=== PATIENT | female | born 1960 | race Caucasian/White ===

== ENCOUNTER → 2020-01-25 | Outpatient (CLI) | payer OTHER ==
--- NOTE | 2020-01-25 10:04 | XR ---
EXAMINATION TYPE: XR chest 2V DATE OF EXAM: 01/25/2020 COMPARISON: 06/13/2011 HISTORY: 59-year-old female with cough, left-sided chest pain TECHNIQUE: Frontal and lateral views FINDINGS: The cardiomediastinal silhouette, aorta, and pulmonary vasculature are within normal limits. Mild den sity at the periphery of the left base. This is the strandy appearance. No other consolidation or ple ural effusion seen. IMPRESSION: Some mild density at the periphery of the left base, suspect atelectasis. Correlate to exclude early infiltrate.
== END | disposition home or self-care (01) ==
LOC: RADXRMAIN 09:09
PROVIDERS: ATTEND Internal Medicine Hematology & Oncology
DX: R91.8 Other nonspecific abnormal finding of lung field (principal); F31.9 Bipolar disorder, unspecified; D47.3 Essential (hemorrhagic) thrombocythemia; F41.9 Anxiety disorder, unspecified; Z71.3 Dietary counseling and surveillance
CPT/HCPCS: 71046

== ENCOUNTER → 2023-01-11 | Outpatient (CLI) | payer BC ==
--- NOTE | 2023-01-14 08:50 | MM ---
Reason for Exam: Screening (asymptomatic). Last mammogram was performed 25 year(s) and 8 month(s) ago. Patient History: Menarche at age 10. First Full-Term at age 22. Left ovary removed at age 39. Right ovary removed at age 39. Hysterectomy at age 39. Postmenopausal. Progesterone for 1 month. Risk Values: Nila 5 year model risk: 1.5%. NCI Lifetime model risk: 6.6%. Prior Study Comparison: 04/30/1997 Bilateral Special View Mammogram, [facility]. 05/14/1997 Left Special View Mammogram, [facility]. Tissue Density: There are scattered fibroglandular densities. Findings: Analyzed By CAD. There is no suspicious group of microcalcifications or new suspicious mass in either breast. Overall Assessment: Benign, BI-RAD 2 Management: Screening Mammogram of both breasts in 1 year. . Patient should continue monthly self-breast exams. A clinical breast exam by your physician is recommended on an annual basis. This exam should not preclude additional follow-up of suspicious palpable abnormalities. Note on Nila scores and lifetime risk: 1. A Nila score greater than 3% is considered moderate risk. If this is the case, consider specialist referral to assess eligibility for a risk reducing agent. 2. If overall lifetime risk for the development of breast cancer is 20% or higher, the patient may qualify for future screening with alternating mammogram and breast MRI. Electronically signed and approved by: Randy Cano M.D. Radiologis
== END | disposition home or self-care (01) ==
LOC: RADMAMWWP 12:03
PROVIDERS: ATTEND Family Medicine
DX: Z12.31 Encounter for screening mammogram for malignant neoplasm of breast (principal); Z78.0 Asymptomatic menopausal state
CPT/HCPCS: 77063; 77067

== ENCOUNTER 2023-11-04 19:02 | Inpatient (IN) | payer BC ==
[2023-11-04] MEDS ORDERED: VANCOMYCIN IV PER PHARMACY 1 EACH MISC MISCELLANE PRN (19:48)
--- NOTE | 2023-11-04 19:50 | ED ---
General Adult HPI - General Stated complaint: Sepsis Time Seen by Provider: 11/04/23 19:09 - History of Present Illness Initial comments: Patient is a 63-year-old female who presented to [facility] today for nausea and not feeling well and hyperglycemia. Endorse generalized weakness and getting progressively worsening nausea and had 1 episode of emesis yesterday and one episode today. Endorse subjective fevers and 2 days ago had a low-grade fever of "100.2 F". Endorses cough. Denies chills, chest pain, shortness of breath. Endorsed mild epigastric abdominal pain. No dysuria or hematuria. No focal numbness or weakness. - Related Data Home Medications Medication Instructions Recorded Confirmed Escitalopram [Lexapro] 20 mg PO DAILY 07/20/14 11/04/23 Esomeprazole Magnesium [NexIUM] 20 mg PO DAILY 07/20/14 11/04/23 QUEtiapine FUMARATE 100 mg PO HS 07/20/14 11/04/23 clonazePAM [KlonoPIN] 0.5 mg PO BID 07/20/14 11/04/23 Atorvastatin [Lipitor] 40 mg PO HS 11/04/23 11/04/23 Cetirizine HCl [Zyrtec] 10 mg PO DAILY 11/04/23 11/04/23 Empagliflozin [Jardiance] 25 mg PO DAILY 11/04/23 11/04/23 Fluticasone Nasal [place] [Flonase 1 spray EA NOSTRIL DAILY PRN 11/04/23 11/04/23 Nasal [place]] glipiZIDE [Glucotrol] 10 mg PO BID 11/04/23 11/04/23 lisinopriL [Zestril] 2.5 mg PO DAILY 11/04/23 11/04/23 metFORMIN HCL [Glucophage] 1,000 mg PO BID 11/04/23 11/04/23 Allergies Allergy/AdvReac Type Severity Reaction Status Date / Time prochlorperazine edisylate AdvReac Anaphylaxis Verified 11/04/23 19:49 [From Compazine] prochlorperazine maleate AdvReac Anaphylaxis Verified 11/04/23 19:49 [From Compazine] Review of Systems ROS Statement: Those systems with pertinent positive or pertinent negative responses have been documented in the HPI. ROS Other: All systems not noted in ROS Statement are negative. Constitutional: Reports: fever. Denies: chills Respiratory: Reports: cough. Denies: dyspnea Cardiovascular: Denies: chest pain Gastrointestinal: Reports: abdominal pain, nausea, vomiting Genitourinary: Denies: dysuria, hematuria Skin: Reports: change in color (Erythema around right foot) Neurological: Denies: numbness Past Medical History Past Medical History: Diabetes Mellitus, GERD/Reflux, Hypertension Additional Past Medical History / Comment(s): Anemia, bleeding ulcer History of Any Multi-Drug Resistant Organisms: None Reported Past Surgical History: Appendectomy, Section, Cholecystectomy, Hysterectomy Past Psychological History: Anxiety, Depression Past Alcohol Use History: None Reported Past Drug Use History: None Reported General Exam - General Exam Comments Initial Comments: PE: CONSTITUTIONAL: No apparent distress, well appearing SKIN: warm, dry, no jaundice, hives or petechiae, circumferential erythema around right foot extending up to ankle, small sore at plantar aspect right foot EYES: Pupils are equally round, extraocular movements intact without nystagmus, clear conjunctiva, non-icteric sclera HENT: Normocephalic, atraumatic, moist mucus membranes, oropharynx clear without exudates NECK: , Full range of motion, normal appearance PULMONARY: Clear to auscultation without wheezes, rhonchi, or rales, normal excursion, no accessory muscle use and no stridor CARDIOVASCULAR: Regular rate, rhythm, normal S1 and S2. No appreciated murmurs, rubs or gallops. Strong radial pulses with intact distal perfusion. No lower extremity edema GASTROINTESTINAL: Soft, non-tender, non-distended, no palpable masses, no rebound or guarding. No hepatosplenomegaly MUSCULOSKELETAL: Right foot is mildly swollen, erythema as noted above, s/p transmetatarsal amputee, no crepitus, other extremities have no gross deformity, n No calf swelling ot TTP. NEUROLOGIC:_a/o x 3, GCS 15, normal mentation and speech. Moves all extremities x 4 without motor or sensory deficit PSYCHIATRIC:_normal mood and affect, thought process is clear and linear Course Vital Signs 11/04/23 11/04/23 11/04/23 19:15 19:48 20:48 Temperature 98.1 F Pulse Rate 95 91 92 Respiratory 20 18 18 Rate Blood Pressure 96/46 92/48 105/46 O2 Sat by Pulse 96 96 98 Oximetry Medical Decision Making - Medical Decision Making Was pt. sent in by a medical professional or institution (, PA, DIRECTOR OF PLANNING, urgent care, hospital, or fdc...) When possible be specific @ -No Did you speak to anyone other than the patient for history (EMS, parent, family, police, friend...)? What history was obtained from this source @ -No Did you review nursing and triage notes (agree or disagree)? Why? @ -I reviewed and agree with nursing and triage notes Were old charts reviewed (outside hosp., previous admission, EMS record, old EKG, old radiological studies, urgent care reports/EKG's, fdc records)? Report findings @Reviewed paperwork from transferring hospital, patient presented tachycardic with borderline blood pressures, received 2 and half liters IV fluids, blood cultures were drawn patient had a leukocytosis with white blood cell count 19.74, hemoglobin of 9.5 hyperglycemia with blood glucose 345 bicarb 22 mild [place] with creatinine 1.98, sodium 132, lipase 38 CT abdomen pelvis showed no acute intra-abdominal process, of note on review of MDM from discharge during hospital, initial evaluating physician did not notice any erythema or warmth, induration or fluctuance of the right foot on their exam there is not suspicion for infection but x-ray did show small amount of soft tissue air at the plantar aspect of the foot, patient was started on broad-spectrum antibiotics including vancomycin and cefepime and transfer was arranged for admission for sepsis Differential Diagnosis (chest pain, altered mental status, abdominal pain women, abdominal pain men, vaginal bleeding, weakness, fever, dyspnea, syncope, headache, dizziness, GI bleed, back pain, seizure, CVA, palpatations, mental he alth, musculoskeletal)? @ -Differential diagnosis remains broad however top considerations include sepsis secondary to cellulitis, abscess, osteomyelitis. This is not all inclusive list. EKG interpreted by me (3pts min.). @ -As above X-rays interpreted by me (1pt min.). @ -None done CT interpreted by me (1pt min.). @ -Small amount of air in region of right foot with soft tissue streaking U/S interpreted by me (1pt. min.). @ -None done What testing was considered but not performed or refused? (CT, X-rays, U/S, labs)? Why? 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 Why? @ -None Did you discuss the management of the patient with other professionals (professionals i.e. , KERWIN, DIRECTOR OF PLANNING, lab, RT, psych nurse, social services, bottle selector, teacher, electoral officer, business case analyst)? Give summary @ -No Was smoking cessation discussed for >3mins.? @ -No Was critical care preformed (if so, how long)? @ -No Were there social determinants of health that impacted care today? How? (Homelessness, low income, unemployed, alcoholism, drug addiction, transportation, low edu. Level, literacy, decrease access to med. care, senior care, rehab)? @ -No Was there de-escalation of care discussed even if they declined (Discuss DNR or withdrawal of care, Hospice)? @ -No What co-morbidities impacted this encounter? (DM, HTN, Smoking, COPD, CAD, Cancer, CVA, ARF, Chemo, Hep., AIDS, mental health diagnosis, sleep apnea, morbid obesity)? @ DM Was patient admitted / discharged? Hospital course, mention meds given and route, prescriptions, significant lab abnormalities, going to OR and other pertinent info. @ -Hospital course admission- Patient is a 63 y/o female transferred from [facility] for sepsis, suspect 2/2 cellulitis in right foot. 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 Pt well appearing on assessment, MAP 68, HR 80- 90s. Exam significant for right foot erythema, swelling, minimal TTP, small sore to the bottom aspect right foot, no crepitus or bullae. CT ordered to further evaluate. Zosyn, additional 500 CC IV fluids and maintenance fluids ordered, CBC, CMP, CRP, ESR, pain control. Anticipate admission, patient agreeable with plan. White blood cell count 15.8, down from earlier, Cr 1.49, earlier was 1.68. CRP 36. Discussed with KERWIN Cohen, [facility], who kindly accepts for admission. CT Showed possible abscess with finding cellulitis. Recommends follow up MRI. I did consider abscess drainage however given the location of patient's abscess, will hold off on drainage and treat with abx at this point. Undiagnosed new problem with uncertain prognosis? @ -No Drug Therapy requiring intensive monitoring for toxicity (Heparin, Nitro, Insulin, Cardizem)? @ -No Were any procedures done? @ -No Diagnosis/symptom? @ -Sepsis secondary to cellulitis Acute, or Chronic, or Acute on Chronic? @ -Acute Uncomplicated (without systemic symptoms) or Complicated (systemic symptoms)? @ Complicated Side effects of treatment? @ -No Exacerbation, Progression, or Severe Exacerbation? @ -No Poses a threat to life or bodily function? How? (Chest pain, [place], [place], pneumonia, PE, COPD, DKA, ARF, appy, cholecystitis, CVA, Diverticulitis, Homicidal, Suicidal, threat to staff... and all critical care pts) @ -Yes, potentially, if infection allowed to spread or continue untreated could result in loss of limb or septic shock - Lab Data Result diagrams: 11/04/23 19:43 11/04/23 19:43 Lab Results 11/04/23 11/04/23 Range/Units 19:43 19:43 WBC 15.8 H (3.8-10.6) k/uL RBC 3.44 L (3.80-5.40) m/uL Hgb 9.8 L (11.4-16.0) gm/dL Hct 29.9 L (34.0-46.0) % MCV 86.8 (80.0-100.0) fL MCH 28.3 (25.0-35.0) pg MCHC 32.6 (31.0-37.0) g/dL RDW 15.1 (11.5-15.5) % Plt Count 245 (150-450) k/uL MPV 8.2 Neutrophils % 83 % Lymphocytes % 11 % Monocytes % 3 % Eosinophils % 1 % Basophils % 0 % Neutrophils # 13.2 H (1.3-7.7) k/uL Lymphocytes # 1.7 (1.0-4.8) k/uL Monocytes # 0.5 (0-1.0) k/uL Eosinophils # 0.2 (0-0.7) k/uL Basophils # 0.0 (0-0.2) k/uL Sodium 135 L (137-145) mmol/L Potassium 4.4 (3.5-5.1) mmol/L Chloride 107 (98-107) mmol/L Carbon Dioxide 19 L (22-30) mmol/L Anion Gap 9 mmol/L BUN 42 H (7-17) mg/dL Creatinine 1.49 H (0.52-1.04) mg/dL Est GFR (CKD-EPI)AfAm 43 (>60 ml/min/1.73 sqM) Est GFR (CKD-EPI)NonAf 37 (>60 ml/min/1.73 sqM) Glucose 158 H (74-99) mg/dL Calcium 8.3 L (8.4-10.2) mg/dL Total Bilirubin 1.5 H (0.2-1.3) mg/dL AST 14 (14-36) U/L ALT 18 (4-34) U/L Alkaline Phosphatase 90 (38-126) U/L C-Reactive Protein 36.4 H (<1.0) mg/dL Total Protein 5.7 L (6.3-8.2) g/dL Albumin 2.9 L (3.5-5.0) g/dL Disposition Clinical Impression: Cellulitis, Abscess, Sepsis Disposition: ADMITTED IP TO THIS [facility] Condition: Good
[2023-11-04 20:29] LABS: ALT 18 U/L (4-34); AST 14 U/L (14-36); African American GFR (CKD) 43 (>60 ml/min/1.73 sqM); Albumin 2.9 g/dL (3.5-5.0); Alkaline Phosphatase 90 U/L (38-126); Anion Gap 9 mmol/L; Blood Urea Nitrogen 42 mg/dL (7-17); Calcium 8.3 mg/dL (8.4-10.2); Carbon Dioxide 19 mmol/L (22-30); Chloride 107 mmol/L (98-107); Glucose 158 mg/dL (74-99); Non-African American GFR(CKD) 37 (>60 ml/min/1.73 sqM); Potassium 4.4 mmol/L (3.5-5.1); Sodium 135 mmol/L (137-145); Total Bilirubin 1.5 mg/dL (0.2-1.3); Total Protein 5.7 g/dL (6.3-8.2)
[2023-11-04] MEDS: SODIUM CHLORIDE 0.9% 1,000 ML IV SCH (20:32)
[2023-11-04 20:39] LABS: Basophils % (A) 0 %; Eosinophils # (A) 0.2 k/uL (0-0.7); Eosinophils % (A) 1 %; HCT 29.9 % (34.0-46.0); HGB 9.8 gm/dL (11.4-16.0); Lymphocytes # (A) 1.7 k/uL (1.0-4.8); Lymphocytes % (A) 11 %; MCH 28.3 pg (25.0-35.0); MCHC 32.6 g/dL (31.0-37.0); MCV 86.8 fL (80.0-100.0); Mean Platelet Volume 8.2; Monocytes # (A) 0.5 k/uL (0-1.0); Monocytes % (A) 3 %; Neutrophils # (A) 13.2 k/uL (1.3-7.7); Neutrophils % (A) 83 %; Platelet Count 245 k/uL (150-450); RBC 3.44 m/uL (3.80-5.40); RDW 15.1 % (11.5-15.5); WBC 15.8 k/uL (3.8-10.6)
[2023-11-04] MEDS ORDERED: NALOXONE 0.4 MG/ML 1 ML VIAL IV PRN (20:42)
[2023-11-04] MEDS ORDERED: MAG HYDROX/AL HYDROX/SIMETH 30 ML CUP PO PRN (20:42)
[2023-11-04] MEDS ORDERED: CALCIUM CARBONATE 500 MG CHEWABLE PO PRN (20:42)
[2023-11-04 21:07] LABS: C Reactive Protein 36.4 mg/dL (<1.0)
[2023-11-04] MEDS: SODIUM CHLORIDE 0.9% 500 ML 500 ML IV ONE (21:14)
--- NOTE | 2023-11-04 21:14 | CT ---
EXAMINATION TYPE: CT lower extremity RT wo con CT DLP: 209.7 mGycm, Automated exposure control for dose reduction was used. DATE OF EXAM: 11/04/2023 8:46 PM COMPARISON: Extremity radiograph same day. CLINICAL INDICATION: Female, 63 years old with history of Cellulitis air on XR; PHH, cellulitis TECHNIQUE: Axial images were obtained of the CT lower extremity RT wo con, Additional coronal and sag ittal reformatted images and soft tissue and bone window were obtained for review. Contrast used: mL of , (None if empty) Oral contrast used: (None if empty) FINDINGS: Subcutaneous gas is seen around the ankle medially with organizing fluid collection and gas present. The streaky edema along the foot present. No evidence of fracture. No osseous erosion defin itively visualized. No radiopaque foreign bodies visualized. Multilevel degeneration changes througho ut the foot. IMPRESSION: Streaky edema of the right lower extremity with organizing fluid collection along the medial foot sun rounding multiple osseous structures. This is partially out of the [id number]. Lies in the field-o f-view is compatible with abscess with cellulitis change. No discrete osseous erosion visualized at t his time. Further workup with MRI recommended.
[2023-11-04] MEDS: PIPERACILLIN-TAZOBACTAM 4.5 GM in SODIUM CHLORIDE 0.9% 100 ML IVPB STA (21:15)
[2023-11-04] MEDS: traMADol 50 MG TAB PO PRN (21:29)
[2023-11-04] MEDS: FAMOTIDINE 20 MG TAB PO SCH (21:30)
[2023-11-04] MEDS: VANCOMYCIN 1,250 MG in SODIUM CHLORIDE 0.9% 250 ML IVPB ONE (21:42)
[2023-11-05 07:34] LABS: African American GFR (CKD) 51 (>60 ml/min/1.73 sqM); Non-African American GFR(CKD) 44 (>60 ml/min/1.73 sqM)
--- NOTE | 2023-11-05 10:34 | P.HPIM ---
History of Present Illness Patient is a 63-year-old female was seen at [facility] because of generalized weakness fever, not feeling well and found to have leukocytosis found to have infection of the left foot circumferential plantar wound. Patient's wound has a purulent base. Patient also hyperglycemic. 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 Patient also complaining of mild epigastric abdominal discomfort. REVIEW OF SYSTEMS: All other systems are negative except those mentioned in the HPI PHYSICAL EXAMINATION: GENERAL: The patient is alert and oriented x3, not in any acute distress. Well developed, well nourished. HEENT: Pupils are round and equally reacting to light. EOMI. No scleral icterus. No conjunctival pallor. Normocephalic, atraumatic. No pharyngeal erythema. No thyromegaly. CARDIOVASCULAR: S1 and S2 present. No murmurs, rubs, or gallops. PULMONARY: Chest is clear to auscultation, no wheezing or crackles. ABDOMEN: Soft, nontender, nondistended, normoactive bowel sounds. No palpable organomegaly. MUSCULOSKELETAL: No joint swelling or deformity. EXTREMITIES: No cyanosis, clubbing, or pedal edema. NEUROLOGICAL: Gross neurological examination did not reveal any focal deficits. SKIN: Right plantar wound as mentioned above Assessment and plan -Sepsis secondary to right foot infection with cellulitis extending up to the mid brower area, patient is on Zosyn and vancomycin. Infectious disease will consult along with wound care and vascular surgery patient may need debridement wound cultures will be obtained -Acute renal failure baseline creatinine within normal notes patient has a creatinine of 1.4 continue with IV fluids hold off on metformin -Mild hypovolemic hyponatremia IV fluids as mentioned above -Type 2 diabetes mellitus uncontrolled elevated blood sugars patient will be resumed on home regimen except for metformin and sliding scale insulin titrate depending on the requirements of insulin -Diabetic peripheral neuropathy -Hyperlipidemia -Gastroesophageal reflux disease -Hypertension For above-mentioned chronic medical problems patient resumed on appropriate home medications DVT prophylaxis: Subcutaneous heparin text Past Medical History Past Medical History: Diabetes Mellitus, GERD/Reflux, Hypertension Additional Past Medical History / Comment(s): Anemia, bleeding ulcer History of Any Multi-Drug Resistant Organisms: None Reported Past Surgical History: Appendectomy, Section, Cholecystectomy, Hysterectomy Additional Past Surgical History / Comment(s): right foot- greater toe amputation- 01/2023 Past Psychological History: Anxiety, Depression Past Alcohol Use History: None Reported Past Drug Use History: None Reported Medications and Allergies Home Medications Medication Instructions Recorded Confirmed Type Escitalopram [Lexapro] 20 mg PO DAILY 07/20/14 11/04/23 History Esomeprazole Magnesium [NexIUM] 20 mg PO DAILY 07/20/14 11/04/23 History QUEtiapine FUMARATE 100 mg PO HS 07/20/14 11/04/23 History clonazePAM [KlonoPIN] 0.5 mg PO BID 07/20/14 11/04/23 History Atorvastatin [Lipitor] 40 mg PO HS 11/04/23 11/04/23 History Cetirizine HCl [Zyrtec] 10 mg PO DAILY 11/04/23 11/04/23 History Empagliflozin [Jardiance] 25 mg PO DAILY 11/04/23 11/04/23 History Fluticasone Nasal [place] [Flonase 1 spray EA NOSTRIL DAILY PRN 11/04/23 11/04/23 History Nasal [place]] glipiZIDE [Glucotrol] 10 mg PO BID 11/04/23 11/04/23 History lisinopriL [Zestril] 2.5 mg PO DAILY 11/04/23 11/04/23 History metFORMIN HCL [Glucophage] 1,000 mg PO BID 11/04/23 11/04/23 History Allergies Allergy/AdvReac Type Severity Reaction Status Date / Time prochlorperazine edisylate AdvReac Anaphylaxis Verified 11/04/23 19:49 [From Compazine] prochlorperazine maleate AdvReac Anaphylaxis Verified 11/04/23 19:49 [From Compazine] Physical Exam Vitals: Vital Signs Temp Pulse Pulse Resp BP BP Pulse Ox 11/05/23 08:39 93 L 11/05/23 08:25 98.6 F 93 18 108/70 95 11/05/23 03:49 81 16 100/49 95 11/05/23 00:00 98.2 F 84 16 94/50 95 11/04/23 20:48 92 18 105/46 98 11/04/23 19:48 91 18 92/48 96 11/04/23 19:15 98.1 F 95 20 96/46 96 Intake and Output 11/04/23 11/05/23 11/05/23 22:59 06:59 14:59 Output Total 700 Balance -700 Output: Urine 700 Other: Voiding Method External Catheter Weight 66.224 kg Results CBC & Chem 7: 11/04/23 19:43 11/05/23 05:36 Labs: Abnormal Lab Results - Last 24 Hours (Table) 11/04/23 11/04/23 11/05/23 Range/Units 19:43 19:43 05:36 WBC 15.8 H (3.8-10.6) k/uL RBC 3.44 L (3.80-5.40) m/uL Hgb 9.8 L (11.4-16.0) gm/dL Hct 29.9 L (34.0-46.0) % Neutrophils # 13.2 H (1.3-7.7) k/uL ESR (0-30) mm/Hr Sodium 135 L (137-145) mmol/L Carbon Dioxide 19 L (22-30) mmol/L BUN 42 H (7-17) mg/dL Creatinine 1.49 H 1.29 H (0.52-1.04) mg/dL Glucose 158 H (74-99) mg/dL Calcium 8.3 L (8.4-10.2) mg/dL Total Bilirubin 1.5 H (0.2-1.3) mg/dL C-Reactive Protein 36.4 H (<1.0) mg/dL Total Protein 5.7 L (6.3-8.2) g/dL Albumin 2.9 L (3.5-5.0) g/dL 11/05/23 Range/Units 05:36 WBC (3.8-10.6) k/uL RBC (3.80-5.40) m/uL Hgb (11.4-16.0) gm/dL Hct (34.0-46.0) % Neutrophils # (1.3-7.7) k/uL ESR 60 H (0-30) mm/Hr Sodium (137-145) mmol/L Carbon Dioxide (22-30) mmol/L BUN (7-17) mg/dL Creatinine (0.52-1.04) mg/dL Glucose (74-99) mg/dL Calcium (8.4-10.2) mg/dL Total Bilirubin (0.2-1.3) mg/dL C-Reactive Protein (<1.0) mg/dL Total Protein (6.3-8.2) g/dL Albumin (3.5-5.0) g/dL
[2023-11-05] MEDS: SODIUM CHLORIDE 0.9% 1,000 ML IV SCH (10:44)
[2023-11-05 12:25] LABS: Glucose,Whole Blood 205 mg/dL (70-110)
--- NOTE | 2023-11-05 12:36 | P.CONS ---
History of Present Illness - Reason for Consult Consult date: 11/05/23 wound care - History of Present Illness This is a 63-year-old patient being seen in the ER for nonhealing ulceration to the right plantar foot. Patient had edema erythema and purulent drainage noted to the site. Patient is status post right great toe amputation from 2022. Patient stated that her foot became painful and red over the last few weeks. Patient has history of diabetes GERD and hypertension. Ulceration measures approximately 1 x 1 x 3 cm with slough and nonviable tissue present serosanguineous drainage present at this time. Undermining is noted. Review Of Systems: Constitutional: No fever, no chills, no night sweats. No weight change. No weakness, fatigue or lethargy. No daytime sleepiness. Integumentary:reports wounds, no lesions. No rash or pruritus. No unusual bruising. No change in hair or nails. Physical exam: General Appearance: Alert, cooperative, no distress, appears stated age. Skin: See HPI all other Skin color, texture, tugor normal, no rashes or lesions. Neurologic: Alert oriented x3 Assessment: 1. Nonhealing ulceration with muscle involvement without necrosis - L97.515 2.. Diabetic foot ulcer - E11.621 Plan: 1. Apply absorptive silver rope dry gauze rolled gauze and secure with tape. Change Saturday. Patient would benefit from advanced wound care and wound care setting. We be happy to see her in the wound care center upon discharge. Thank you for the consultation any questions please contact the wound care center DNP note has been reviewed and discussed with Dr. Villegas and the impression and plan of care has been directed as dictated. Past Medical History Past Medical History: Diabetes Mellitus, GERD/Reflux, Hypertension Additional Past Medical History / Comment(s): Anemia, bleeding ulcer History of Any Multi-Drug Resistant Organisms: None Reported Past Surgical History: Appendectomy, Section, Cholecystectomy, Hysterectomy Additional Past Surgical History / Comment(s): right foot- greater toe amputation- 01/2023 Past Psychological History: Anxiety, Depression Past Alcohol Use History: None Reported Past Drug Use History: None Reported Medications and Allergies Home Medications Medication Instructions Recorded Confirmed Type Escitalopram [Lexapro] 20 mg PO DAILY 07/20/14 11/04/23 History Esomeprazole Magnesium [NexIUM] 20 mg PO DAILY 07/20/14 11/04/23 History QUEtiapine FUMARATE 100 mg PO HS 07/20/14 11/04/23 History clonazePAM [KlonoPIN] 0.5 mg PO BID 07/20/14 11/04/23 History Atorvastatin [Lipitor] 40 mg PO HS 11/04/23 11/04/23 History Cetirizine HCl [Zyrtec] 10 mg PO DAILY 11/04/23 11/04/23 History Empagliflozin [Jardiance] 25 mg PO DAILY 11/04/23 11/04/23 History Fluticasone Nasal [place] [Flonase 1 spray EA NOSTRIL DAILY PRN 11/04/23 11/04/23 History Nasal [place]] glipiZIDE [Glucotrol] 10 mg PO BID 11/04/23 11/04/23 History lisinopriL [Zestril] 2.5 mg PO DAILY 11/04/23 11/04/23 History metFORMIN HCL [Glucophage] 1,000 mg PO BID 11/04/23 11/04/23 History Allergies Allergy/AdvReac Type Severity Reaction Status Date / Time prochlorperazine edisylate AdvReac Anaphylaxis Verified 11/04/23 19:49 [From Compazine] prochlorperazine maleate AdvReac Anaphylaxis Verified 11/04/23 19:49 [From Compazine] Physical Exam Vitals: Vital Signs Temp Pulse Pulse Resp BP BP Pulse Ox 11/05/23 11:06 98.5 F 78 20 102/64 95 11/05/23 08:39 93 L 11/05/23 08:25 98.6 F 93 18 108/70 95 11/05/23 03:49 81 16 100/49 95 11/05/23 00:00 98.2 F 84 16 94/50 95 11/04/23 20:48 92 18 105/46 98 11/04/23 19:48 91 18 92/48 96 11/04/23 19:15 98.1 F 95 20 96/46 96 Intake and Output 11/04/23 11/05/23 11/05/23 22:59 06:59 14:59 Output Total 700 Balance -700 Output: Urine 700 Other: Voiding Method External Catheter Weight 66.224 kg Results CBC & Chem 7: 11/04/23 19:43 11/05/23 05:36 Labs: Abnormal Lab Results - Last 24 Hours (Table) 11/04/23 11/04/23 11/05/23 Range/Units 19:43 19:43 05:36 WBC 15.8 H (3.8-10.6) k/uL RBC 3.44 L (3.80-5.40) m/uL Hgb 9.8 L (11.4-16.0) gm/dL Hct 29.9 L (34.0-46.0) % Neutrophils # 13.2 H (1.3-7.7) k/uL ESR (0-30) mm/Hr Sodium 135 L (137-145) mmol/L Carbon Dioxide 19 L (22-30) mmol/L BUN 42 H (7-17) mg/dL Creatinine 1.49 H 1.29 H (0.52-1.04) mg/dL Glucose 158 H (74-99) mg/dL POC Glucose (mg/dL) (70-110) mg/dL Calcium 8.3 L (8.4-10.2) mg/dL Total Bilirubin 1.5 H (0.2-1.3) mg/dL C-Reactive Protein 36.4 H (<1.0) mg/dL Total Protein 5.7 L (6.3-8.2) g/dL Albumin 2.9 L (3.5-5.0) g/dL 11/05/23 11/05/23 Range/Units 05:36 12:24 WBC (3.8-10.6) k/uL RBC (3.80-5.40) m/uL Hgb (11.4-16.0) gm/dL Hct (34.0-46.0) % Neutrophils # (1.3-7.7) k/uL ESR 60 H (0-30) mm/Hr Sodium (137-145) mmol/L Carbon Dioxide (22-30) mmol/L BUN (7-17) mg/dL Creatinine (0.52-1.04) mg/dL Glucose (74-99) mg/dL POC Glucose (mg/dL) 205 H (70-110) mg/dL Calcium (8.4-10.2) mg/dL Total Bilirubin (0.2-1.3) mg/dL C-Reactive Protein (<1.0) mg/dL Total Protein (6.3-8.2) g/dL Albumin (3.5-5.0) g/dL
--- NOTE | 2023-11-05 12:43 | P.GSCN ---
History of Present Illness Consult date: 11/05/23 Reason for Consult: Foot wound Requesting physician: Juana Gilliland History of present illness: This is a pleasant 63-year-old female with a history of diabetes mellitus, peripheral neuropathy, chronic right foot wound, previous right foot wound infection requiring right great toe amputation and hypertension who presented to the emergency department as a transfer from [facility] for concerns of infected right foot wound. Patient states she has had the wound on the bottom of her foot since January. She follows with [facility] and sees a contract engineer for wound care. States she started not feeling well a couple days ago with fever, body aches and nausea. Also started to notice her leg getting red. She went to the emergency department for further evaluation. She also has Charcot foot. Vascular surgery was consulted for right foot wound. She states she does not have much feeling in that right foot. She currently denies any shortness of breath or chest pain no fevers or bodyaches. Denies any abdominal pain, nausea or vomiting. Review of Systems A 14 point review systems was completed all pertinent positives and negatives as stated in the HPI. Past Medical History Past Medical History: Diabetes Mellitus, GERD/Reflux, Hypertension Additional Past Medical History / Comment(s): Anemia, bleeding ulcer History of Any Multi-Drug Resistant Organisms: None Reported Past Surgical History: Appendectomy, Section, Cholecystectomy, Hysterectomy Additional Past Surgical History / Comment(s): right foot- greater toe amputation- 01/2023 Past Psychological History: Anxiety, Depression Past Alcohol Use History: None Reported Past Drug Use History: None Reported Medications and Allergies Home Medications Medication Instructions Recorded Confirmed Type Escitalopram [Lexapro] 20 mg PO DAILY 07/20/14 11/04/23 History Esomeprazole Magnesium [NexIUM] 20 mg PO DAILY 07/20/14 11/04/23 History QUEtiapine FUMARATE 100 mg PO HS 07/20/14 11/04/23 History clonazePAM [KlonoPIN] 0.5 mg PO BID 07/20/14 11/04/23 History Atorvastatin [Lipitor] 40 mg PO HS 11/04/23 11/04/23 History Cetirizine HCl [Zyrtec] 10 mg PO DAILY 11/04/23 11/04/23 History Empagliflozin [Jardiance] 25 mg PO DAILY 11/04/23 11/04/23 History Fluticasone Nasal [place] [Flonase 1 spray EA NOSTRIL DAILY PRN 11/04/23 11/04/23 History Nasal [place]] glipiZIDE [Glucotrol] 10 mg PO BID 11/04/23 11/04/23 History lisinopriL [Zestril] 2.5 mg PO DAILY 11/04/23 11/04/23 History metFORMIN HCL [Glucophage] 1,000 mg PO BID 11/04/23 11/04/23 History Allergies Allergy/AdvReac Type Severity Reaction Status Date / Time prochlorperazine edisylate AdvReac Anaphylaxis Verified 11/04/23 19:49 [From Compazine] prochlorperazine maleate AdvReac Anaphylaxis Verified 11/04/23 19:49 [From Compazine] Surgical - Exam Vital Signs Temp Pulse Resp BP Pulse Ox 98.1 F 95 20 96/46 96 11/04/23 19:15 11/04/23 19:15 11/04/23 19:15 11/04/23 19:15 11/04/23 19:15 General appearance: The patient is alert, oriented, appears in no acute distress. HET: Head is normocephalic and atraumatic. Pupils are equal and reactive. Neck: Supple. Heart: Regular. Lungs: Equal expansion, normal respiratory effort. Abdomen: Soft, nontender, nondistended. Extremities: Palpable DP pulse. Right foot with previous great toe amputation well-healed. Plantar aspect of midfoot with diabetic ulcer with fluctuance. Wound was probed with cotton tip applicator and expressed with serosanguineous drainage but no pus noted. Deep tissue culture obtained. The swelling to the left side of the foot. There is erythema along the dorsal aspect of foot and of the brower which is marked. Palpable DP pulses. Neurological: No focal deficits. Peripheral neuropathy With decreased sensation in feet. Results - Labs 11/04/23 19:43 11/05/23 05:36 Abnormal Lab Results - Last 24 Hours (Table) 11/04/23 11/04/23 11/05/23 Range/Units 19:43 19:43 05:36 WBC 15.8 H (3.8-10.6) k/uL RBC 3.44 L (3.80-5.40) m/uL Hgb 9.8 L (11.4-16.0) gm/dL Hct 29.9 L (34.0-46.0) % Neutrophils # 13.2 H (1.3-7.7) k/uL ESR (0-30) mm/Hr Sodium 135 L (137-145) mmol/L Carbon Dioxide 19 L (22-30) mmol/L BUN 42 H (7-17) mg/dL Creatinine 1.49 H 1.29 H (0.52-1.04) mg/dL Glucose 158 H (74-99) mg/dL POC Glucose (mg/dL) (70-110) mg/dL Calcium 8.3 L (8.4-10.2) mg/dL Total Bilirubin 1.5 H (0.2-1.3) mg/dL C-Reactive Protein 36.4 H (<1.0) mg/dL Total Protein 5.7 L (6.3-8.2) g/dL Albumin 2.9 L (3.5-5.0) g/dL 11/05/23 11/05/23 Range/Units 05:36 12:24 WBC (3.8-10.6) k/uL RBC (3.80-5.40) m/uL Hgb (11.4-16.0) gm/dL Hct (34.0-46.0) % Neutrophils # (1.3-7.7) k/uL ESR 60 H (0-30) mm/Hr Sodium (137-145) mmol/L Carbon Dioxide (22-30) mmol/L BUN (7-17) mg/dL Creatinine (0.52-1.04) mg/dL Glucose (74-99) mg/dL POC Glucose (mg/dL) 205 H (70-110) mg/dL Calcium (8.4-10.2) mg/dL Total Bilirubin (0.2-1.3) mg/dL C-Reactive Protein (<1.0) mg/dL Total Protein (6.3-8.2) g/dL Albumin (3.5-5.0) g/dL Diabetes panel 11/04/23 11/05/23 Range/Units 19:43 05:36 Sodium 135 L (137-145) mmol/L Potassium 4.4 (3.5-5.1) mmol/L Chloride 107 (98-107) mmol/L Carbon Dioxide 19 L (22-30) mmol/L BUN 42 H (7-17) mg/dL Creatinine 1.49 H 1.29 H (0.52-1.04) mg/dL Glucose 158 H (74-99) mg/dL Calcium 8.3 L (8.4-10.2) mg/dL AST 14 (14-36) U/L ALT 18 (4-34) U/L Alkaline Phosphatase 90 (38-126) U/L Total Protein 5.7 L (6.3-8.2) g/dL Albumin 2.9 L (3.5-5.0) g/dL Calcium panel 11/04/23 Range/Units 19:43 Calcium 8.3 L (8.4-10.2) mg/dL Albumin 2.9 L (3.5-5.0) g/dL Pituitary panel 11/04/23 11/05/23 Range/Units 19:43 05:36 Sodium 135 L (137-145) mmol/L Potassium 4.4 (3.5-5.1) mmol/L Chloride 107 (98-107) mmol/L Carbon Dioxide 19 L (22-30) mmol/L BUN 42 H (7-17) mg/dL Creatinine 1.49 H 1.29 H (0.52-1.04) mg/dL Glucose 158 H (74-99) mg/dL Calcium 8.3 L (8.4-10.2) mg/dL Adrenal panel 11/04/23 11/05/23 Range/Units 19:43 05:36 Sodium 135 L (137-145) mmol/L Potassium 4.4 (3.5-5.1) mmol/L Chloride 107 (98-107) mmol/L Carbon Dioxide 19 L (22-30) mmol/L BUN 42 H (7-17) mg/dL Creatinine 1.49 H 1.29 H (0.52-1.04) mg/dL Glucose 158 H (74-99) mg/dL Calcium 8.3 L (8.4-10.2) mg/dL Total Bilirubin 1.5 H (0.2-1.3) mg/dL AST 14 (14-36) U/L ALT 18 (4-34) U/L Alkaline Phosphatase 90 (38-126) U/L Total Protein 5.7 L (6.3-8.2) g/dL Albumin 2.9 L (3.5-5.0) g/dL - Imaging Comments: Lower extremity CT reports streaky edema of the right lower extremity with organizing fluid collection along the medial foot surrounding multiple osseous structures. This is partially out of the [id number]. Lies in the [id number] is compatible with abscess with cellulitis change. No discrete osseous erosion visualized at this time further workup with MRI recommended. Assessment and Plan Assessment: 1. Infected chronic diabetic right foot wound 2. Cellulitis 3. Charcot foot 4. History of previous right foot injury status post right great toe amputation 5. Diabetes mellitus 6. Peripheral neuropathy Plan: 1. Deep tissue culture obtained, please send aerobic and anaerobic 2. Antibiotics per recommendations from infectious disease 3. Wound care per recommendations from wound clinic 4. Consider possible MRI of the foot 5. Wound was probed and expressed, without any pus noted. Further r ecommendations forthcoming based on clinical course. Thank you for this consultation, we will continue to follow. The impression and plan of care has been dictated as directed. I performed a history and examination of this patient, discussed the same with the dictator. I agree with the dictator's note ,documented as a scribe. Any additional findings or plans will be noted.
[2023-11-05] MEDS: INSULIN ASPART (NovoLOG) 100 UNIT/ML VIAL SQ SCH (12:46)
[2023-11-05] MEDS: HEPARIN SODIUM,PORCINE 5,000 UNIT/ML 1 ML VIAL SQ SCH (15:28)
[2023-11-05] MEDS: VANCOMYCIN 1,250 MG in SODIUM CHLORIDE 0.9% 250 ML IVPB SCH (15:42)
[2023-11-05] MEDS: AMPICILLIN-SULBACTAM 3 GM in SODIUM CHLORIDE 0.9% 100 ML IVPB SCH (17:10)
[2023-11-05] MEDS: clonazePAM 0.5 MG TAB PO PRN (17:17)
[2023-11-05 17:18] LABS: Glucose,Whole Blood 183 mg/dL (70-110)
[2023-11-05 20:06] LABS: Glucose,Whole Blood 203 mg/dL (70-110)
[2023-11-05] MEDS: glipiZIDE 10 MG TAB PO SCH (20:49)
[2023-11-05] MEDS: ATORVASTATIN 40 MG TAB PO SCH (20:50)
[2023-11-05] MEDS: FAMOTIDINE 20 MG TAB PO SCH (20:51)
[2023-11-05] MEDS ORDERED: HEPARIN SODIUM,PORCINE 5,000 UNIT/ML 1 ML VIAL SQ SCH (21:00)
[2023-11-05] MEDS: ACETAMINOPHEN TAB 325 MG TAB PO PRN (22:07)
[2023-11-06 06:31] LABS: Glucose,Whole Blood 84 mg/dL (70-110)
--- NOTE | 2023-11-06 07:56 | P.CONS ---
History of Present Illness - Reason for Consult Consult date: 11/05/23 Wound to the right foot Requesting physician: Juana Gilliland - Chief Complaint Nausea and not feeling well x days - History of Present Illness Patient is a 63-year-old female with a past medical history significant diabetes mellitus reflux hypertension did have a recent right big toe diabetic foot infection requiring amputation at [place] patient presenting to the hospital concerning for nausea not feeling well and did have elevated blood sugar patient did have an episode of vomiting yesterday and one episode today has been complaining of fever patient was initially evaluated with a 6 subsequently has been transferred to this facility patient has developed a wound on the plantar aspect of the right foot that apparently has got worse over the last few days and did have some drainage with associated swelling redness of the right foot patient complaining of pain to the right foot to be mostly dull aching pressure moderate intensity without any radiation patient on presentation to the hospital was afebrile and no fever have been recorded subsequently patient was not tachycardic hypotensive or hypoxic patient did have a white count of 15.8 BUN and creatinine mildly elevated with a creatinine 1.49 liver enzymes are normal local cultures obtained patient was started on vancomycin infectious disease was consulted for further management of antibiotic therapy patient did have CT of the right foot organizing fluid collection along the medial foot surrounding multiple osseous structures, infectious disease was consulted for further management of antibiotic therapy Review of Systems Positive point and negatives has been mentioned in the HPI, complete review of systems was performed and all other systems are negative Past Medical History Past Medical History: Diabetes Mellitus, GERD/Reflux, Hypertension Additional Past Medical History / Comment(s): Anemia, bleeding ulcer History of Any Multi-Drug Resistant Organisms: None Reported Past Surgical History: Appendectomy, Section, Cholecystectomy, Hysterectomy Additional Past Surgical History / Comment(s): right foot- greater toe amputation- 01/2023 Past Psychological History: Anxiety, Depression Past Alcohol Use History: None Reported Past Drug Use History: None Reported Medications and Allergies Home Medications Medication Instructions Recorded Confirmed Type Escitalopram [Lexapro] 20 mg PO DAILY 07/20/14 11/04/23 History Esomeprazole Magnesium [NexIUM] 20 mg PO DAILY 07/20/14 11/04/23 History QUEtiapine FUMARATE 100 mg PO HS 07/20/14 11/04/23 History clonazePAM [KlonoPIN] 0.5 mg PO BID 07/20/14 11/04/23 History Atorvastatin [Lipitor] 40 mg PO HS 11/04/23 11/04/23 History Cetirizine HCl [Zyrtec] 10 mg PO DAILY 11/04/23 11/04/23 History Empagliflozin [Jardiance] 25 mg PO DAILY 11/04/23 11/04/23 History Fluticasone Nasal [place] [Flonase 1 spray EA NOSTRIL DAILY PRN 11/04/23 11/04/23 History Nasal [place]] glipiZIDE [Glucotrol] 10 mg PO BID 11/04/23 11/04/23 History lisinopriL [Zestril] 2.5 mg PO DAILY 11/04/23 11/04/23 History metFORMIN HCL [Glucophage] 1,000 mg PO BID 11/04/23 11/04/23 History Allergies Allergy/AdvReac Type Severity Reaction Status Date / Time prochlorperazine edisylate AdvReac Anaphylaxis Verified 11/04/23 19:49 [From Compazine] prochlorperazine maleate AdvReac Anaphylaxis Verified 11/04/23 19:49 [From Compazine] Physical Exam Vitals: Vital Signs Temp Pulse Pulse Resp BP BP Pulse Ox 11/05/23 11:06 98.5 F 78 20 102/64 95 11/05/23 08:39 93 L 11/05/23 08:25 98.6 F 93 18 108/70 95 11/05/23 03:49 81 16 100/49 95 11/05/23 00:00 98.2 F 84 16 94/50 95 11/04/23 20:48 92 18 105/46 98 11/04/23 19:48 91 18 92/48 96 11/04/23 19:15 98.1 F 95 20 96/46 96 Intake and Output 11/04/23 11/05/23 11/05/23 22:59 06:59 14:59 Output Total 700 Balance -700 Output: Urine 700 Other: Voiding Method External Catheter Weight 66.224 kg GENERAL DESCRIPTION: Middle-aged female lying in bed, no distress. No tachypnea or accessory muscle of respiration use. HEENT: Shows Pallor , no scleral icterus. Oral mucous membrane is dry. No pharyngeal erythema or thrush NECK: Trachea central, no thyromegaly. LUNGS: Unlabored breathing. Clear to auscultation anteriorly. No wheeze or crackle. HEART: S1, S2, regular rate and rhythm. No loud murmur ABDOMEN: Soft, no tenderness , guarding or rigidity, no organomegaly EXTREMITIES: Patient did have right big toe amputation and she did have a wound on the plantar aspect of the right foot with purulent drainage. SKIN: No rash, no masses palpable. NEUROLOGICAL: The patient is awake, alert, oriented x3, mood and affect normal. Results CBC & Chem 7: 11/04/23 19:43 11/05/23 05:36 Labs: Abnormal Lab Results - Last 24 Hours (Table) 11/04/23 11/04/23 11/05/23 Range/Units 19:43 19:43 05:36 WBC 15.8 H (3.8-10.6) k/uL RBC 3.44 L (3.80-5.40) m/uL Hgb 9.8 L (11.4-16.0) gm/dL Hct 29.9 L (34.0-46.0) % Neutrophils # 13.2 H (1.3-7.7) k/uL ESR (0-30) mm/Hr Sodium 135 L (137-145) mmol/L Carbon Dioxide 19 L (22-30) mmol/L BUN 42 H (7-17) mg/dL Creatinine 1.49 H 1.29 H (0.52-1.04) mg/dL Glucose 158 H (74-99) mg/dL Calcium 8.3 L (8.4-10.2) mg/dL Total Bilirubin 1.5 H (0.2-1.3) mg/dL C-Reactive Protein 36.4 H (<1.0) mg/dL Total Protein 5.7 L (6.3-8.2) g/dL Albumin 2.9 L (3.5-5.0) g/dL 11/05/23 Range/Units 05:36 WBC (3.8-10.6) k/uL RBC (3.80-5.40) m/uL Hgb (11.4-16.0) gm/dL Hct (34.0-46.0) % Neutrophils # (1.3-7.7) k/uL ESR 60 H (0-30) mm/Hr Sodium (137-145) mmol/L Carbon Dioxide (22-30) mmol/L BUN (7-17) mg/dL Creatinine (0.52-1.04) mg/dL Glucose (74-99) mg/dL Calcium (8.4-10.2) mg/dL Total Bilirubin (0.2-1.3) mg/dL C-Reactive Protein (<1.0) mg/dL Total Protein (6.3-8.2) g/dL Albumin (3.5-5.0) g/dL Assessment and Plan (1) Foot abscess, right Current Visit: Yes Status: Acute Code(s): L02.611 - CUTANEOUS ABSCESS OF RIGHT FOOT SNOMED Code(s): 40605698959653323 (2) Leukocytosis Current Visit: Yes Status: Acute Code(s): D72.829 - ELEVATED WHITE BLOOD CELL COUNT, UNSPECIFIED SNOMED Code(s): 771884154 Plan: 1patient presented to hospital with a right diabetic foot infection in this patient who recently did have right big toe amputation now presenting with the likely infected callus on the plantar aspect of the right foot with second infection and abscess formation as there was evidence of purulent drainage will need to cover for the polymicrobial antonio associated with diabetic foot infection. 2await vascular surgery valuation for drainage of this abscess and deep culture. 3vancomycin pharmacy to dose target trough of 15 while watching kidney function and Vanco trough closely to continue or add Unasyn pending culture. We will follow on clinical condition and cultures to further adjust medication if needed Thank you for this consultation we will follow the patient along with you Dictation was produced using [employer] dictation software. please excuse any gra mmatical, word or spelling errors. Time with Patient: Greater than 30
[2023-11-06 09:09] LABS: HCT 29.4 % (34.0-46.0); Hypochromasia Moderate; MCH 28.1 pg (25.0-35.0); MCHC 30.6 g/dL (31.0-37.0); Mean Platelet Volume 8.2; Platelet Count 326 k/uL (150-450); RBC 3.21 m/uL (3.80-5.40); RDW 15.2 % (11.5-15.5); WBC 11.1 k/uL (3.8-10.6)
[2023-11-06 09:25] LABS: African American GFR (CKD) 68 (>60 ml/min/1.73 sqM); Anion Gap 8 mmol/L; Blood Urea Nitrogen 20 mg/dL (7-17); Calcium 8.4 mg/dL (8.4-10.2); Carbon Dioxide 23 mmol/L (22-30); Chloride 109 mmol/L (98-107); Glucose 226 mg/dL (74-99); Magnesium 1.9 mg/dL (1.6-2.3); Non-African American GFR(CKD) 59 (>60 ml/min/1.73 sqM); Potassium 4.4 mmol/L (3.5-5.1); Sodium 140 mmol/L (137-145)
[2023-11-06 09:37] LABS: MCV 91.8 fL (80.0-100.0)
[2023-11-06] MEDS: DAPAGLIFLOZIN PROPANEDIOL 10 MG TABLET PO SCH (10:12)
[2023-11-06] MEDS: PANTOPRAZOLE 40 MG TABLET PO SCH (10:12)
[2023-11-06] MEDS: LORATADINE 10 MG TAB PO SCH (10:13)
[2023-11-06] MEDS: ESCITALOPRAM 20 MG TAB PO SCH (10:13)
[2023-11-06] MEDS: ENOXAPARIN 40 MG/0.4 ML SYRINGE SQ SCH (11:30)
[2023-11-06 11:37] LABS: Glucose,Whole Blood 206 mg/dL (70-110)
--- NOTE | 2023-11-06 13:09 | P.PN ---
Subjective Progress Note Date: 11/06/23 Principal diagnosis: Right foot infection Patient seen and examined today as a follow-up. She remains afebrile. Currently on IV antibiotics and being followed by infectious disease. Leukocytosis improving. States that she has some soreness to her right foot but no pain. Wound culture presumptive Staph aureus with group B. Objective - Vital Signs Vital signs: Vital Signs Temp 97.4 F L 11/06/23 03:15 Pulse 77 11/06/23 03:15 Resp 18 11/06/23 03:15 BP 103/65 11/06/23 03:15 Pulse Ox 93 L 11/06/23 03:15 FiO2 Intake & Output 11/05/23 11/06/23 11/06/23 18:59 06:59 18:59 Intake Total 240 240 Output Total 500 500 Balance -260 -260 Weight 66.224 kg 112.5 kg Intake: Oral 240 240 Output: Urine 500 500 Other: Voiding Method External Catheter # Voids 1 1 # Bowel Movements 1 1 - Exam General appearance: The patient is alert, oriented, appears in no acute distress. HET: Head is normocephalic and atraumatic. Pupils are equal and reactive. Neck: Supple. Abdomen: Soft, nondistended. Extremities: Palpable DP pulse. Right foot with previous great toe amputation well-healed. Plantar aspect of midfoot with diabetic ulcer with fluctuance. Wound was probed with cotton tip applicator and expressed with serosanguineous drainage but no pus noted. Deep tissue culture obtained. Swelling along the medial aspect of foot. Erythema dorsal aspect of foot, erythema improved going up the leg. Palpable DP pulses. Neurological: No focal deficits. Peripheral neuropathy With decreased sensation in feet. - Labs CBC & Chem 7: 11/06/23 08:37 11/06/23 08:37 Labs: Abnormal Lab Results - Last 24 Hours (Table) 11/05/23 11/05/23 11/05/23 Range/Units 12:24 17:16 20:04 Chloride (98-107) mmol/L BUN (7-17) mg/dL Glucose (74-99) mg/dL POC Glucose (mg/dL) 205 H 183 H 203 H (70-110) mg/dL 11/06/23 Range/Units 08:37 Chloride 109 H (98-107) mmol/L BUN 20 H (7-17) mg/dL Glucose 226 H (74-99) mg/dL POC Glucose (mg/dL) (70-110) mg/dL Assessment and Plan Assessment: 1. Infected chronic diabetic right foot wound 2. Cellulitis 3. Charcot foot 4. History of previous right foot injury status post right great toe amputation 5. Diabetes mellitus 6. Peripheral neuropathy Plan: 1. Deep tissue culture obtained 2. Antibiotics per recommendations from infectious disease 3. Wound care per recommendations from wound clinic 4. Will order MRI of the foot 5. Further recommendations forthcoming based on clinical course. Thank you for this consultation, we will continue to follow. The impression and plan of care has been dictated as directed. Dr. Brunson I performed a history and examination of this patient, discussed the same with the dictator. I agree with the dictator's note ,documented as a scribe. Any additional findings or plans will be noted.
[2023-11-06 16:36] LABS: Glucose,Whole Blood 195 mg/dL (70-110)
[2023-11-06] MEDS: ONDANSETRON 4 MG/2 ML VIAL IVP PRN (17:17)
[2023-11-06 17:55] LABS: % Iron Saturation 5.86 (12.00-45.00)
[2023-11-06 20:07] LABS: Glucose,Whole Blood 210 mg/dL (70-110)
--- NOTE | 2023-11-06 21:37 | P.PN ---
Progress Note - Text Progress Note Date: 11/06/23 Patient is a 63-year-old female was seen at [facility] because of generalized weakness fever, not feeling well and found to have leukocytosis found to have infection of the left foot circumferential plantar wound. Patient's wound has a purulent base. Patient also hyperglycemic. 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 Patient also complaining of mild epigastric abdominal discomfort. November 06, 2023: Sitting up in bed. Pain well-controlled. Eating well. Had a bowel movement. Patient has anemia. She states about 4 years ago patient had a EGD colonoscopy that was negative. Deep tissue cultures obtained by vascular. MRI of the foot has been ordered by the time. Patient on IV Unasyn and IV vancomycin. Patient is and niece at the bedside discussed. Active Medications Acetaminophen (Acetaminophen Tab 325 Mg Tab) 650 mg PO Q6HR PRN PRN Reason: Mild Pain or Fever > 100.5 Last Admin: 11/06/23 16:18 Dose: 650 mg Al Hydroxide/Mg Hydroxide (Mag Hydrox/Al Hydrox/Simeth 30 Ml Cup) 15 ml PO Q6HR PRN PRN Reason: Indigestion Atorvastatin Calcium (Atorvastatin 40 Mg Tab) 40 mg PO [facility] Last Admin: 11/05/23 20:50 Dose: 40 mg Calcium Carbonate/Glycine (Calcium Carbonate 500 Mg Chewable) 1,000 mg PO Q4HR PRN PRN Reason: Dyspepsia Clonazepam (Clonazepam 0.5 Mg Tab) 0.5 mg PO BID PRN PRN Reason: Anxiety Last Admin: 11/05/23 17:17 Dose: 0.5 mg Dapagliflozin (Dapagliflozin Propanediol 10 Mg Tablet) 10 mg PO DAILY [facility] Last Admin: 11/06/23 10:12 Dose: 10 mg Enoxaparin Sodium (Enoxaparin 40 Mg/0.4 Ml Syringe) 40 mg SQ DAILY [facility] Last Admin: 11/06/23 11:30 Dose: Not Given Escitalopram Oxalate (Escitalopram 20 Mg Tab) 20 mg PO DAILY [facility] Last Admin: 11/06/23 10:13 Dose: 20 mg Famotidine (Famotidine 20 Mg Tab) 20 mg PO [facility] Last Admin: 11/05/23 20:51 Dose: 20 mg Glipizide (Glipizide 10 Mg Tab) 10 mg PO BID [facility] Last Admin: 11/06/23 10:12 Dose: 10 mg Vancomycin HCl 1,250 mg/ (Sodium Chloride) 250 mls @ 125 mls/hr IVPB Q24H [facility] Last Admin: 11/06/23 17:17 Dose: 125 mls/hr Sodium Chloride (Saline 0.9%) 1,000 mls @ 75 mls/hr IV .[id number] [facility] Last Admin: 11/06/23 12:41 Dose: Not Given Ampicillin Sodium/Sulbactam (Sodium 3 gm/ Sodium Chloride) 100 mls @ 200 mls/hr IVPB Q8HR [facility]; Protocol Last Admin: 11/06/23 16:18 Dose: 200 mls/hr Insulin Aspart (Insulin Aspart (Novolog) 100 Unit/Ml Vial) 0 unit SQ AC-TID [facility]; Protocol Last Admin: 11/06/23 17:21 Dose: 2 unit Lisinopril (Lisinopril 2.5 Mg Tab) 2.5 mg PO DAILY [facility] Last Admin: 11/06/23 10:13 Dose: 2.5 mg Loratadine (Loratadine 10 Mg Tab) 10 mg PO DAILY [facility] Last Admin: 11/06/23 10:13 Dose: 10 mg Naloxone HCl (Naloxone 0.4 Mg/Ml 1 Ml Vial) 0.2 mg IV Q2M PRN PRN Reason: Opioid Reversal Ondansetron HCl (Ondansetron 4 Mg/2 Ml Vial) 4 mg IVP Q8HR PRN PRN Reason: Nausea And Vomiting Last Admin: 11/06/23 17:17 Dose: 4 mg Pantoprazole Sodium (Pantoprazole 40 Mg Tablet) 40 mg PO DAILY [facility] Last Admin: 11/06/23 10:12 Dose: 40 mg Tramadol HCl (Tramadol 50 Mg Tab) 50 mg PO Q6H PRN PRN Reason: Moderate Pain (Scale 4 to 6) Last Admin: 11/05/23 20:51 Dose: 50 mg On examination: VITAL SIGNS: [98.4, 85, 16, 120 x 68, 95% room air] GENERAL APPEARANCE: Resting in bed, not in distress HEENT: Normal external appearance of nose and ear. Oral cavity normal EYES: Pupils equal. Conjunctiva normal. NECK: JVD not raised. Mass not palpable. RESPIRATORY: Respiratory effort normal. Lungs clear to auscultation. CARDIOVASCULAR: First and second sounds normal. No edema. ABDOMEN: Soft. Liver and spleen not palpable. No tenderness. No mass palpable. PSYCHIATRY: Alert and oriented x3. Mood and affect normal. EXTREMITY: Right foot in a dressing INVESTIGATIONS, reviewed in the clinical context: November 05: White: 0.1 hemoglobin 9 platelets 326 sodium 140 potassium 4.4 BUN 20 creatinine 1.01 Iron 16 TIBC 273% saturation 5.8 transferrin [address] [November 03] streaky edema of the right lower extremity with organizing fluid collection along the medial foot surrounding multiple osseous structures. With abscess/cellulitis. Assessment and plan -Sepsis secondary to right foot infection with cellulitis, possible abscess ext ending up to the mid brower area,: Slow to respond Zosyn and vancomycin. ID and vascular surgery following MRI of the foot ordered -Acute renal failure secondary to sepsis.: Improving Admission creatinine 1.49. -Mild hypovolemic hyponatremia IV fluids -Type 2 diabetes mellitus uncontrolled with hyperglycemia. Resume metformin. -Diabetic peripheral neuropathy -Hyperlipidemia -Gastroesophageal reflux disease -Hypertension Continue antibiotics. Follow with vascular. Discussed with patient and niece at the bedside. Past Medical History Past Medical History: Diabetes Mellitus, GERD/Reflux, Hypertension Additional Past Medical History / Comment(s): Anemia, bleeding ulcer History of Any Multi-Drug Resistant Organisms: None Reported Past Surgical History: Appendectomy, Section, Cholecystectomy, Hysterectomy Additional Past Surgical History / Comment(s): right foot- greater toe amputation- 01/2023 Past Psychological History: Anxiety, Depression Past Alcohol Use History: None Reported Past Drug Use History: None Reported
[2023-11-07 06:15] LABS: Glucose,Whole Blood 143 mg/dL (70-110)
[2023-11-07] MEDS: metFORMIN 500 MG TAB PO SCH (09:36)
[2023-11-07] MEDS: SODIUM FERRIC GLUCONAT-SUCROSE 125 MG in SODIUM CHLORIDE 0.9% 100 ML IVPB SCH (10:11)
[2023-11-07 11:23] LABS: Glucose,Whole Blood 177 mg/dL (70-110)
[2023-11-07] MEDS: FERROUS SULFATE 325 MG TAB PO SCH (12:25)
--- NOTE | 2023-11-07 12:34 | P.PN ---
Subjective Progress Note Date: 11/06/23 Principal diagnosis: Reason for follow-up is right diabetic foot infection Patient is a 63-year-old female with a past medical history significant diabetes mellitus reflux hypertension did have a recent right big toe diabetic foot infection requiring amputation at [place] patient presenting to the hospital concerning for nausea not feeling well and did have elevated blood sugar and also noticed to have right foot abscess and cellulitis. On today's evaluation that is 11/06/2023, Patient is afebrile this morning patient denies having any chest pain shortness of breath or cough, the patient is breathing comfortably and currently on room air, patient denies any abdominal pain no diarrhea no nausea no vomiting, the patient denies any worsening pain to the right foot or drainage. Patient white count is down to 11.1, creatinine 1.01 cultures currently pending Objective - Vital Signs Vital signs: Vital Signs Temp 98.2 F 11/06/23 11:11 Pulse 72 11/06/23 11:11 Resp 16 11/06/23 11:11 BP 119/68 11/06/23 11:11 Pulse Ox 92 L 11/06/23 11:11 FiO2 Intake & Output 11/05/23 11/06/23 11/06/23 18:59 06:59 18:59 Intake Total 240 240 Output Total 500 500 Balance -260 -260 Weight 66.224 kg 112.5 kg Intake: Oral 240 240 Output: Urine 500 500 Other: Voiding Method External Catheter External Catheter # Voids 1 1 # Bowel Movements 1 1 - Exam GENERAL DESCRIPTION: Middle-age female up in the chair in no distress RESPIRATORY SYSTEM: Unlabored breathing , decreased breath sounds at bases HEART: S1 S2 regular rate and rhythm , ABDOMEN: Soft , no tenderness EXTREMITIES: Right foot is currently dressed - Labs CBC & Chem 7: 11/06/23 08:37 11/06/23 08:37 Labs: Abnormal Lab Results - Last 24 Hours (Table) 11/05/23 11/05/23 11/06/23 Range/Units 17:16 20:04 08:37 WBC 11.1 H (3.8-10.6) k/uL RBC 3.21 L (3.80-5.40) m/uL Hgb 9.0 L (11.4-16.0) gm/dL Hct 29.4 L (34.0-46.0) % MCHC 30.6 L (31.0-37.0) g/dL Chloride (98-107) mmol/L BUN (7-17) mg/dL Glucose (74-99) mg/dL POC Glucose (mg/dL) 183 H 203 H (70-110) mg/dL 11/06/23 11/06/23 Range/Units 08:37 11:36 WBC (3.8-10.6) k/uL RBC (3.80-5.40) m/uL Hgb (11.4-16.0) gm/dL Hct (34.0-46.0) % MCHC (31.0-37.0) g/dL Chloride 109 H (98-107) mmol/L BUN 20 H (7-17) mg/dL Glucose 226 H (74-99) mg/dL POC Glucose (mg/dL) 206 H (70-110) mg/dL Microbiology - Last 24 Hours (Table) 11/05/23 10:47 Wound Culture - Preliminary Foot - Right Strep agalactiae - (group b) Presumptive Staph aureus Assessment and Plan (1) Foot abscess, right Current Visit: Yes Status: Acute Code(s): L02.611 - CUTANEOUS ABSCESS OF RIGHT FOOT SNOMED Code(s): 62991755617112511 (2) Leukocytosis Current Visit: Yes Status: Acute Code(s): D72.829 - ELEVATED WHITE BLOOD CELL COUNT, UNSPECIFIED SNOMED Code(s): 318459911 Plan: 1patient presented to hospital with a right diabetic foot infection in this patient who recently did have right big toe amputation now presenting with the likely infected callus on the plantar aspect of the right foot with second infection and abscess formation as there was evidence of purulent drainage will need to cover for the polymicrobial antonio associated with diabetic foot infection. 2patient has been evaluated by vascular surgery MRI has been ordered, pending completion 3local cultures pending, continue vancomycin pharmacy to dose target trough of 15 and Unasyn Dictation was produced using [employer] software. please excuse any grammatical, word or spelling errors. Time with Patient: Less than 30
--- NOTE | 2023-11-07 12:35 | P.PN ---
Subjective Progress Note Date: 11/07/23 Principal diagnosis: Reason for follow-up is right diabetic foot infection Patient is a 63-year-old female with a past medical history significant diabetes mellitus reflux hypertension did have a recent right big toe diabetic foot infection requiring amputation at [place] patient presenting to the hospital concerning for nausea not feeling well and did have elevated blood sugar and also noticed to have right foot abscess and cellulitis. On today's evaluation that is 11/07/2023,the patient denies any fever or any chills, patient is breathing comfortably on room air, the patient denies chest pain shortness of breath and no significant cough, patient denies abdominal pain, no nausea vomiting or diarrhea., Denies any worsening pain to the right foot. No labs were drawn today local culture finalized with strappmaru and MSSA Objective - Vital Signs Vital signs: Vital Signs Temp 98.0 F 11/07/23 11:41 Pulse 88 11/07/23 11:41 Resp 18 11/07/23 11:41 BP 132/67 11/07/23 11:41 Pulse Ox 96 11/07/23 11:41 FiO2 Intake & Output 11/06/23 11/07/23 11/07/23 18:59 06:59 18:59 Intake Total 1020 Output Total 500 200 600 Balance 520 -200 -600 Weight 104.5 kg Intake: Oral 1020 Output: Urine 500 200 600 Other: Voiding Method External Catheter External Catheter External Catheter # Voids 1 # Bowel Movements 1 0 1 - Exam GENERAL DESCRIPTION: Middle-age female up in the chair in no distress RESPIRATORY SYSTEM: Unlabored breathing , decreased breath sounds at bases HEART: S1 S2 regular rate and rhythm , ABDOMEN: Soft , no tenderness EXTREMITIES: Right foot is currently dressed - Labs CBC & Chem 7: 11/06/23 08:37 11/06/23 08:37 Labs: Abnormal Lab Results - Last 24 Hours (Table) 11/06/23 11/06/23 11/06/23 Range/Units 08:37 16:34 20:05 POC Glucose (mg/dL) 195 H 210 H (70-110) mg/dL Iron 16 L (50-170) UG/DL % Saturation 5.86 L (12.00-45.00) Transferrin 195.0 L (204.0-354.0) mg/dL 11/07/23 11/07/23 Range/Units 06:13 11:21 POC Glucose (mg/dL) 143 H 177 H (70-110) mg/dL Iron (50-170) UG/DL % Saturation (12.00-45.00) Transferrin (204.0-354.0) mg/dL Microbiology - Last 24 Hours (Table) 11/05/23 10:47 Gram Stain - Final Foot - Right Wound Culture - Final Strep agalactiae - (group b) Staphylococcus aureus Assessment and Plan (1) Foot abscess, right Current Visit: Yes Status: Acute Code(s): L02.611 - CUTANEOUS ABSCESS OF RIGHT FOOT SNOMED Code(s): 42610834038627329 (2) Leukocytosis Current Visit: Yes Status: Acute Code(s): D72.829 - ELEVATED WHITE BLOOD CELL COUNT, UNSPECIFIED SNOMED Code(s): 577653846 Plan: 1patient presented to hospital with a right diabetic foot infection in this pat ient who recently did have right big toe amputation now presenting with the likely infected callus on the plantar aspect of the right foot with second infection and abscess formation as there was evidence of purulent drainage will need to cover for the polymicrobial antonio associated with diabetic foot infection. 2patient has been evaluated by vascular surgery MRI has been ordered, pending completion 3local cultures has been finalized with strep and MSSA we will continue Unasyn discontinue vancomycin Dictation was produced using [employer] dictation software. please excuse any grammatical, word or spelling errors. Time with Patient: Less than 30
--- NOTE | 2023-11-07 15:14 | P.CONS ---
History of Present Illness - Reason for Consult Consult date: 11/07/23 Iron deficiency anemia Requesting physician: Horacio Levin - Chief Complaint Right foot wound - History of Present Illness This is a pleasant 63-year-old female with a history of diabetes mellitus, chronic anemia, peripheral neuropathy, GERD and hypertension Charcot foot, chronic nonhealing right foot wound who was transferred from [facility] the emergency department and was admitted for infected foot wound. She has been started on IV antibiotics. She presented with a hemoglobin of 9.8 with a repeat today of 9.0, normal platelet count. Iron studies ordered. Iron 16 TIBC 273 saturation 5.86 ferritin 236. Patient states she had workup in the past with upper and lower endoscopy with Dr. Snyder she believes 3 to 5 years ago, report currently not available. She denies any regular NSAID use, anticoagulation, denies abdominal pain, nausea or vomiting. Denies any black stool or blood in her stool. Review of Systems REVIEW OF SYSTEMS: CARDIOPULMONARY: No chest pain or shortness of breath. Gastrointestinal: No abdominal pain. No nausea or vomiting. No hematemesis, coffee-ground emesis. No rectal bleeding, or melena. GENITOURINARY: No dysuria or hematuria. MUSCULOSKELETAL: Reports normal range of motion., Joint pain. SKIN: No rashes. No jaundice. Right foot diabetic wound ENDOCRINE: No chills, fevers. No excessive weight gain or loss. No polydipsia or polyuria. PSYCHIATRIC: Unremarkable. NEUROLOGY: No change in mental status. Denies dizziness, headache. ENT: Vision unremarkable. CONSTITUTIONAL: No recent weight loss. No fever, chills, night sweats. Past Medical History Past Medical History: Diabetes Mellitus, GERD/Reflux, Hypertension Additional Past Medical History / Comment(s): Anemia, bleeding ulcer History of Any Multi-Drug Resistant Organisms: None Reported Past Surgical History: Appendectomy, Section, Cholecystectomy, Hysterectomy Additional Past Surgical History / Comment(s): right foot- greater toe amputation- 01/2023 Past Psychological History: Anxiety, Depression Past Alcohol Use History: None Reported Past Drug Use History: None Reported Medications and Allergies Home Medications Medication Instructions Recorded Confirmed Type Escitalopram [Lexapro] 20 mg PO DAILY 07/20/14 11/04/23 History Esomeprazole Magnesium [NexIUM] 20 mg PO DAILY 07/20/14 11/04/23 History QUEtiapine FUMARATE 100 mg PO HS 07/20/14 11/04/23 History clonazePAM [KlonoPIN] 0.5 mg PO BID 07/20/14 11/04/23 History Atorvastatin [Lipitor] 40 mg PO HS 11/04/23 11/04/23 History Cetirizine HCl [Zyrtec] 10 mg PO DAILY 11/04/23 11/04/23 History Empagliflozin [Jardiance] 25 mg PO DAILY 11/04/23 11/04/23 History Fluticasone Nasal [place] [Flonase 1 spray EA NOSTRIL DAILY PRN 11/04/23 11/04/23 History Nasal [place]] glipiZIDE [Glucotrol] 10 mg PO BID 11/04/23 11/04/23 History lisinopriL [Zestril] 2.5 mg PO DAILY 11/04/23 11/04/23 History metFORMIN HCL [Glucophage] 1,000 mg PO BID 11/04/23 11/04/23 History Allergies Allergy/AdvReac Type Severity Reaction Status Date / Time prochlorperazine edisylate AdvReac Anaphylaxis Verified 11/04/23 19:49 [From Compazine] prochlorperazine maleate AdvReac Anaphylaxis Verified 11/04/23 19:49 [From Compazine] Physical Exam Vitals: Vital Signs Temp Pulse Resp BP BP Pulse Ox 11/07/23 11:41 98.0 F 88 18 132/67 96 11/07/23 08:00 99.6 F 88 18 130/78 95 11/07/23 04:00 98.5 F 91 16 136/74 96 11/07/23 02:00 87 16 11/06/23 23:25 98.9 F 87 16 128/68 90 L 11/06/23 20:00 98.7 F 95 16 147/77 94 L 11/06/23 15:59 98.4 F 85 16 120/68 95 Intake and Output 11/06/23 11/07/23 11/07/23 22:59 06:59 14:59 Intake Total 540 Output Total 200 600 Balance 540 -200 -600 Intake: Oral 540 Output: Urine 200 600 Other: Voiding Method External Catheter External Catheter External Catheter # Bowel Movements 1 0 1 Weight 104.5 kg General appearance: The patient is alert, oriented, appears in no acute distress. HET: Head is normocephalic and atraumatic. Conjunctiva pink. Sclera anicteric. Neck: Supple without lymphadenopathy. Trachea midline. Heart: Regular. Lungs: Equal expansion, normal respiratory effort. Abdomen: Soft, nontender, nondistended. Skin: No rashes. No jaundice. Extremities: Normal skin color and turgor. No pedal edema. Right foot wound with dressing with noted drainage. Neurological: No focal deficits. Alert and oriented x3. Results CBC & Chem 7: 11/06/23 08:37 11/06/23 08:37 Labs: Abnormal Lab Results - Last 24 Hours (Table) 11/06/23 11/06/23 11/06/23 Range/Units 08:37 16:34 20:05 POC Glucose (mg/dL) 195 H 210 H (70-110) mg/dL Iron 16 L (50-170) UG/DL % Saturation 5.86 L (12.00-45.00) Transferrin 195.0 L (204.0-354.0) mg/dL 11/07/23 11/07/23 Range/Units 06:13 11:21 POC Glucose (mg/dL) 143 H 177 H (70-110) mg/dL Iron (50-170) UG/DL % Saturation (12.00-45.00) Transferrin (204.0-354.0) mg/dL Microbiology - Last 24 Hours (Table) 11/05/23 10:47 Gram Stain - Preliminary Foot - Right Wound Culture - Preliminary Strep agalactiae - (group b) Presumptive Staph aureus Assessment and Plan (1) Normochromic normocytic anemia Narrative/Plan: 63-year-old with multiple comorbidities including diabetes mellitus, peripheral neuropathy and diabetic ulcer was found to be anemic on admission. Patient states she has a history of anemia and has had workup in the past with upper and lower endoscopy. Iron studies show low iron with normal ferritin. She is currently on iron infusions. Possible etiology includes anemia of chronic disease, less likely appears to be anemia of acute blood loss as patient is without any GI signs of blood loss. However can follow-up with gastroenterology and consider outpatient endoscopy if needed. Current Visit: Yes Status: Acute Code(s): D64.9 - ANEMIA, UNSPECIFIED SNOMED Code(s): 68033402 (2) Diabetes mellitus Current Visit: Yes Status: Acute Code(s): E11.9 - TYPE 2 DIABETES MELLITUS WITHOUT COMPLICATIONS SNOMED Code(s): 01318062 (3) Wound of right foot Current Visit: Yes Status: Acute Code(s): S91.301A - UNSPECIFIED OPEN WOUND, RIGHT FOOT, INITIAL ENCOUNTER SNOMED Code(s): 439522904 (4) Cellulitis Current Visit: Yes Status: Acute Code(s): L03.90 - CELLULITIS, UNSPECIFIED SNOMED Code(s): 217303077 (5) Leukocytosis Current Visit: Yes Status: Acute Code(s): D72.829 - ELEVATED WHITE BLOOD CELL COUNT, UNSPECIFIED SNOMED Code(s): 360606603 (6) Peripheral neuropathy Current Visit: Yes Status: Acute Code(s): G62.9 - POLYNEUROPATHY, UNSPECIFIED SNOMED Code(s): 732511443 Plan: 1. Continue symptomatic and supportive care 2. Continue iron infusion 3. Continue treatment for infected chronic right foot wound 4. No plans on endoscopic evaluation, patient can follow-up as an outpatient and consider outpatient endoscopy if needed Thank you for this consultation, we will continue to follow. Dr. Li Snyder I agree with the dictator's note, documented as a scribe by Ailyn Cutler.
--- NOTE | 2023-11-07 15:39 | MR ---
EXAMINATION TYPE: MR foot RT wo/w con DATE OF EXAM: 11/07/2023 2:40 PM CLINICAL INDICATION: Female, 63 years old with history of Evaluate for abscess, osteomyelitis; [facility], COMPARISON: Radiograph TECHNIQUE: Multiplanar, multisequence MR imaging of the right foot forefoot was performed administra tion of IV gadolinium contrast. MR contrast: IV Contrast: cc 10 cc Gadavist FINDINGS: Plantar surface wound which extends to the undersurface subcutaneous tissues. No organizing fluid col lection to suggest abscess there is high T2 streaky edema and phlegmonous change. The osseous structures demonstrate abnormal bone marrow signal immediately next to the wound series 1 101 image 6 and series 411 image 7. There is streaky edema throughout the foot suggestive of cellulitis. High T1 signal fluid around the flexor digitorum longus and flexor houses longus present. Series 901 image 27. Postsurgical changes of the first digit with amputation at the metatarsophalangeal joint. The right w rist of the osseous structures signal is grossly intact. Scattered multifocal degeneration with joint space tearing osteophyte formation. Prior injury to the first metatarsal with shortening and displac ement of the distal aspect of T2 19 mm. IMPRESSION: 1. Plantar surface without evidence for abscess. Sinusitis changes throughout the foot. There is abn ormal bone marrow signal suggesting osteomyelitis. This is immediately next to the wound. 2. High T2 signal fluid around the flexor hallucis longus and flexor digitorum longus suggestive of tenosynovitis. Alternatively some of this could be postsurgical change given amputation. Attention fo llow-up imaging after control of infection.
--- NOTE | 2023-11-07 16:06 | P.PN ---
Subjective Progress Note Date: 11/07/23 Principal diagnosis: Right foot infection Patient seen and examined today as a follow-up. No acute changes through the night. She is scheduled to undergo MRI of the foot this afternoon. She has been afebrile. Still has some discomfort in her foot if people are touching it. She remains on IV antibiotics Objective - Vital Signs Vital signs: Vital Signs Temp 98.0 F 11/07/23 11:41 Pulse 88 11/07/23 11:41 Resp 18 11/07/23 11:41 BP 132/67 11/07/23 11:41 Pulse Ox 96 11/07/23 11:41 FiO2 Intake & Output 11/06/23 11/07/23 11/07/23 18:59 06:59 18:59 Intake Total 1020 Output Total 500 200 600 Balance 520 -200 -600 Weight 104.5 kg Intake: Oral 1020 Output: Urine 500 200 600 Other: Voiding Method External Catheter External Catheter External Catheter # Voids 1 # Bowel Movements 1 0 1 - Exam General appearance: The patient is alert, oriented, appears in no acute distress. HET: Head is normocephalic and atraumatic. Pupils are equal and reactive. Neck: Supple. Abdomen: Soft, nondistended. Extremities: Palpable DP pulse. Right foot with previous great toe amputation well-healed. Plantar aspect of midfoot with diabetic ulcer with fluctuance. Wound was probed with cotton tip applicator and expressed with serosanguineous drainage but no pus noted. Deep tissue culture obtained. Swelling along the medial aspect of foot. Erythema dorsal aspect of foot, erythema improved going up the leg. Palpable DP pulses. Neurological: No focal deficits. Peripheral neuropathy With decreased sensation in feet. - Labs CBC & Chem 7: 11/06/23 08:37 11/06/23 08:37 Labs: Abnormal Lab Results - Last 24 Hours (Table) 11/06/23 11/06/23 11/06/23 Range/Units 08:37 16:34 20:05 POC Glucose (mg/dL) 195 H 210 H (70-110) mg/dL Iron 16 L (50-170) UG/DL % Saturation 5.86 L (12.00-45.00) Transferrin 195.0 L (204.0-354.0) mg/dL 11/07/23 11/07/23 Range/Units 06:13 11:21 POC Glucose (mg/dL) 143 H 177 H (70-110) mg/dL Iron (50-170) UG/DL % Saturation (12.00-45.00) Transferrin (204.0-354.0) mg/dL Microbiology - Last 24 Hours (Table) 11/05/23 10:47 Gram Stain - Preliminary Foot - Right Wound Culture - Preliminary Strep agalactiae - (group b) Presumptive Staph aureus Assessment and Plan Assessment: 1. Infected chronic diabetic right foot wound 2. Cellulitis 3. Charcot foot 4. History of previous right foot injury status post right great toe amputation 5. Diabetes mellitus 6. Peripheral neuropathy Plan: 1. Continue IV antibiotics per recommendations from ID 2. MRI of the foot ordered, currently pending 3. Continue local wound care as ordered 4. Further recommendations forthcoming based on clinical course Thank you for this consultation, we will continue to follow. The impression and plan of care has been dictated as directed. Dr. Brunson I performed a history and examination of this patient, discussed the same with the dictator. I agree with the dictator's note ,documented as a scribe. Any additional findings or plans will be noted.
[2023-11-07 16:41] LABS: Glucose,Whole Blood 92 mg/dL (70-110)
--- NOTE | 2023-11-07 16:45 | P.PN ---
Progress Note - Text Progress Note Date: 11/07/23 Patient is a 63-year-old female was seen at [facility] because of generalized weakness fever, not feeling well and found to have leukocytosis found to have infection of the left foot circumferential plantar wound. Patient's wound has a purulent base. Patient also hyperglycemic. 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 Patient also complaining of mild epigastric abdominal discomfort. November 06, 2023: Sitting up in bed. Pain well-controlled. Eating well. Had a bowel movement. Patient has anemia. She states about 4 years ago patient had a EGD colonoscopy that was negative. Deep tissue cultures obtained by vascular. MRI of the foot has been ordered by the time. Patient on IV Unasyn and IV vancomycin. Patient is and niece at the bedside discussed. November 06: Did sit up in a chair earlier. Pain controlled. MRI done today showed no evidence of abscess. Abnormal bone marrow suggesting osteomyelitis. Also suggestions of tenosynovitis. Some of these changes could be postsurgical from previous amputation. Getting IV iron for iron deficiency. GI Dr. Li Snyder consulted. Vancomycin has been taken off. Cultures are growing Streptococcus agalactiae and Staph aureus, MSSA Active Medications Acetaminophen (Acetaminophen Tab 325 Mg Tab) 650 mg PO Q6HR PRN PRN Reason: Mild Pain or Fever > 100.5 Last Admin: 11/06/23 21:32 Dose: 650 mg Al Hydroxide/Mg Hydroxide (Mag Hydrox/Al Hydrox/Simeth 30 Ml Cup) 15 ml PO Q6HR PRN PRN Reason: Indigestion Atorvastatin Calcium (Atorvastatin 40 Mg Tab) 40 mg PO HS [facility] Last Admin: 11/06/23 21:32 Dose: 40 mg Calcium Carbonate/Glycine (Calcium Carbonate 500 Mg Chewable) 1,000 mg PO Q4HR PRN PRN Reason: Dyspepsia Clonazepam (Clonazepam 0.5 Mg Tab) 0.5 mg PO BID PRN PRN Reason: Anxiety Last Admin: 11/07/23 09:36 Dose: 0.5 mg Dapagliflozin (Dapagliflozin Propanediol 10 Mg Tablet) 10 mg PO DAILY [facility] Last Admin: 11/07/23 09:36 Dose: 10 mg Enoxaparin Sodium (Enoxaparin 40 Mg/0.4 Ml Syringe) 40 mg SQ DAILY [facility] Last Admin: 09/12/24 09:36 Dose: 40 mg Escitalopram Oxalate (Escitalopram 20 Mg Tab) 20 mg PO DAILY [facility] Last Admin: 11/07/23 09:36 Dose: 20 mg Famotidine (Famotidine 20 Mg Tab) 20 mg PO HS [facility] Last Admin: 11/06/23 21:34 Dose: 20 mg Ferrous Sulfate (Ferrous Sulfate 325 Mg Tab) 325 mg PO W/LUNCH [facility] Last Admin: 11/07/23 12:25 Dose: 325 mg Glipizide (Glipizide 10 Mg Tab) 10 mg PO BID [facility] Last Admin: 11/07/23 09:36 Dose: 10 mg Sodium Chloride (Saline 0.9%) 1,000 mls @ 75 mls/hr IV .[id number] [facility] Last Admin: 11/07/23 06:41 Dose: Not Given Ampicillin Sodium/Sulbactam (Sodium 3 gm/ Sodium Chloride) 100 mls @ 200 mls/hr IVPB Q8HR [facility]; Protocol Last Admin: 11/07/23 09:36 Dose: 200 mls/hr Ferric Sodium Gluconate 125 mg (/ Sodium Chloride) 110 mls @ 100 mls/hr IVPB DAILY [facility] Stop: 11/09/23 10:05 Last Admin: 11/07/23 10:11 Dose: 100 mls/hr Insulin Aspart (Insulin Aspart (Novolog) 100 Unit/Ml Vial) 0 unit SQ AC-TID [facility]; Protocol Last Admin: 11/07/23 12:26 Dose: 2 unit Lisinopril (Lisinopril 2.5 Mg Tab) 2.5 mg PO DAILY [facility] Last Admin: 11/07/23 09:36 Dose: 2.5 mg Loratadine (Loratadine 10 Mg Tab) 10 mg PO DAILY [facility] Last Admin: 11/07/23 09:36 Dose: 10 mg Metformin HCl (Metformin 500 Mg Tab) 1,000 mg PO BID-W/MEALS [facility] Last Admin: 11/07/23 09:36 Dose: 1,000 mg Naloxone HCl (Naloxone 0.4 Mg/Ml 1 Ml Vial) 0.2 mg IV Q2M PRN PRN Reason: Opioid Reversal Ondansetron HCl (Ondansetron 4 Mg/2 Ml Vial) 4 mg IVP Q8HR PRN PRN Reason: Nausea And Vomiting Last Admin: 11/06/23 17:17 Dose: 4 mg Pantoprazole Sodium (Pantoprazole 40 Mg Tablet) 40 mg PO DAILY [facility] Last Admin: 11/07/23 09:36 Dose: 40 mg Tramadol HCl (Tramadol 50 Mg Tab) 50 mg PO Q6H PRN PRN Reason: Moderate Pain (Scale 4 to 6) Last Admin: 11/05/23 20:51 Dose: 50 mg On examination: VITAL SIGNS: 98, 88, 18, 132 x 67, 96% on 2 L GENERAL APPEARANCE: Resting in bed, appears comfortable HEENT: Normal external appearance of nose and ear. Oral cavity normal EYES: Pupils equal. Conjunctiva normal. NECK: JVD not raised. Mass not palpable. RESPIRATORY: Respiratory effort normal. Lungs clear to auscultation. CARDIOVASCULAR: First and second sounds normal. No edema. ABDOMEN: Soft. Liver and spleen not palpable. No tenderness. No mass palpable. PSYCHIATRY: Alert and oriented x3. Mood and affect normal. EXTREMITY: Right foot in a dressing INVESTIGATIONS, reviewed in the clinical context: Right foot MRI [November 06, with and without contrast] plantar surface without evidence for abscess. Sinusitis changes throughout the foot. Abnormal bone marrow signal suggesting osteomyelitis. Immediately next to the wound. Fluid signal along flexor hallucis longus and flexor digitorum longus suggestive of tenosynovitis. Some of it also could be postsurgical changes given amputation. November 05: White: 0.1 hemoglobin 9 platelets 326 sodium 140 potassium 4.4 BUN 20 creatinine 1.01 Iron 16 TIBC 273% saturation 5.8 transferrin [address] [November 03] streaky edema of the right lower extremity with organizing fluid collection along the medial foot surrounding multiple osseous structures. With abscess/cellulitis. Assessment and plan: -Sepsis secondary to right foot cellulitis with osteomyelitis-acute, wound cultures grew Streptococcus agalactiae, Staphylococcus aureus-MSSA IV Unasyn. ID and vascular surgery following -Acute renal failure secondary to sepsis.: Improving Admission creatinine 1.49. -Mild hypovolemic hyponatremia IV fluids -Type 2 diabetes mellitus uncontrolled with hyperglycemia. Follow Accu-Cheks. Metformin. -Diabetic peripheral neuropathy -Hyperlipidemia Lipitor -Gastroesophageal reflux disease Protonix -Essential hypertension Lisinopril -Iron deficiency anemia GI Dr. Snyder consulted IV Ferrlecit x 3 doses. Oral ferrous sulfate Follow labs. Discussed with patient. Past Medical History Past Medical History: Diabetes Mellitus, GERD/Reflux, Hypertension Additional Past Medical History / Comment(s): Anemia, bleeding ulcer History of Any Multi-Drug Resistant Organisms: None Reported Past Surgical History: Appendectomy, Section, Cholecystectomy, Hysterectomy Additional Past Surgical History / Comment(s): right foot- greater toe amputation- 01/2023 Past Psychological History: Anxiety, Depression Past Alcohol Use History: None Reported Past Drug Use History: None Reported
[2023-11-07 20:43] LABS: Glucose,Whole Blood 141 mg/dL (70-110)
[2023-11-08 04:33] LABS: Basophils % (A) 0 %; Eosinophils # (A) 0.5 k/uL (0-0.7); Eosinophils % (A) 5 %; HCT 30.2 % (34.0-46.0); HGB 9.3 gm/dL (11.4-16.0); Hypochromasia Marked; Lymphocytes # (A) 1.8 k/uL (1.0-4.8); Lymphocytes % (A) 18 %; MCHC 30.9 g/dL (31.0-37.0); MCV 90.6 fL (80.0-100.0); Mean Platelet Volume 7.8; Monocytes # (A) 0.6 k/uL (0-1.0); Monocytes % (A) 6 %; Neutrophils # (A) 7.1 k/uL (1.3-7.7); Neutrophils % (A) 69 %; Platelet Count 435 k/uL (150-450); RBC 3.34 m/uL (3.80-5.40); RDW 14.7 % (11.5-15.5); WBC 10.3 k/uL (3.8-10.6)
[2023-11-08 04:41] LABS: African American GFR (CKD) 88 (>60 ml/min/1.73 sqM); Anion Gap 7 mmol/L; Blood Urea Nitrogen 8 mg/dL (7-17); Calcium 8.8 mg/dL (8.4-10.2); Carbon Dioxide 25 mmol/L (22-30); Chloride 108 mmol/L (98-107); Glucose 90 mg/dL (74-99); Non-African American GFR(CKD) 76 (>60 ml/min/1.73 sqM); Potassium 4.8 mmol/L (3.5-5.1); Sodium 140 mmol/L (137-145)
[2023-11-08 05:58] LABS: Glucose,Whole Blood 100 mg/dL (70-110)
--- NOTE | 2023-11-08 09:59 | P.PN ---
Subjective Progress Note Date: 11/08/23 Principal diagnosis: Right foot infection Patient seen and examined today as a follow-up. No acute changes through the night. Remains afebrile. Yesterday she underwent MRI of the foot that reports no evidence for abscess. Sinusitis changes throughout the foot abnormal bone m arrow signal suggesting osteomyelitis. High T2 signal fluid around flexor hallucis and flexor digitorum longus suggestive of tenosynovitis, alternatively some of this could be postsurgical changes given amputation. Attention follow- up imaging after control of infection. Leukocytosis continues to improve. Deep tissue cultures finalized. Patient remains on IV antibiotics with Unasyn. Objective - Vital Signs Vital signs: Vital Signs Temp 99.1 F 11/08/23 01:57 Pulse 86 11/08/23 01:57 Resp 17 11/08/23 01:57 BP 139/69 11/08/23 01:57 Pulse Ox 94 L 11/08/23 01:57 FiO2 Intake & Output 11/07/23 11/07/23 11/08/23 06:59 18:59 06:59 Intake Total 480 Output Total 200 1200 325 Balance -200 -720 -325 Weight 104.5 kg Intake: Oral 480 Output: Urine 200 1200 325 Other: Voiding Method External Catheter External Catheter External Catheter # Voids 1 # Bowel Movements 0 1 - Exam General appearance: The patient is alert, oriented, appears in no acute distress. HET: Head is normocephalic and atraumatic. Pupils are equal and reactive. Neck: Supple. Abdomen: Soft, nondistended. Extremities: Palpable DP pulses. Charcot foot. Right foot with previous great toe amputation well-healed. Dressing to right foot. Cellulitis improving. Swelling improving. Neurological: No focal deficits. Peripheral neuropathy with decreased sensation in feet. - Labs CBC & Chem 7: 11/08/23 03:34 11/08/23 03:34 Labs: Abnormal Lab Results - Last 24 Hours (Table) 11/07/23 11/07/23 11/08/23 Range/Units 11:21 20:41 03:34 RBC 3.34 L (3.80-5.40) m/uL Hgb 9.3 L (11.4-16.0) gm/dL Hct 30.2 L (34.0-46.0) % MCHC 30.9 L (31.0-37.0) g/dL Chloride (98-107) mmol/L POC Glucose (mg/dL) 177 H 141 H (70-110) mg/dL 11/08/23 Range/Units 03:34 RBC (3.80-5.40) m/uL Hgb (11.4-16.0) gm/dL Hct (34.0-46.0) % MCHC (31.0-37.0) g/dL Chloride 108 H (98-107) mmol/L POC Glucose (mg/dL) (70-110) mg/dL Microbiology - Last 24 Hours (Table) 11/05/23 10:47 Gram Stain - Final Foot - Right Wound Culture - Final Strep agalactiae - (group b) Staphylococcus aureus Assessment and Plan Assessment: 1. Infected chronic diabetic right foot wound without evidence of abscess 2. Cellulitis 3. Charcot foot 4. History of previous right foot injury status post right great toe amputation 5. Diabetes mellitus 6. Peripheral neuropathy Plan: 1. Continue IV antibiotics per recommendations from ID 2. MRI of the foot reviewed with no evidence of current abscess 3. Continue local wound care as ordered 4. Deep tissue cultures were collected from vascular surgeon the day patient was admitted 5. No plans on surgical intervention, continue local wound care and outpatient follow-up with wound clinic Thank you for this consultation, we will sign off at this time. The impression and plan of care has been dictated as directed. Dr. Brunson I performed a history and examination of this patient, discussed the same with the dictator. I agree with the dictator's note ,documented as a scribe. Any additional findings or plans will be noted.
--- NOTE | 2023-11-08 10:16 | P.PN ---
Subjective Progress Note Date: 11/08/23 Principal diagnosis: Anemia This is a pleasant 63-year-old female with a history of diabetes mellitus, chronic anemia, peripheral neuropathy, GERD and hypertension Charcot foot, c hronic nonhealing right foot wound who was transferred from [facility] the emergency department and was admitted for infected foot wound. She has been started on IV antibiotics. She presented with a hemoglobin of 9.8 with a repeat today of 9.0, normal platelet count. Iron studies ordered. Iron 16 TIBC 273 saturation 5.86 ferritin 236. Patient states she had workup in the past with upper and lower endoscopy with Dr. Snyder she believes 3 to 5 years ago, report currently not available. She denies any regular NSAID use, anticoagulation, denies abdominal pain, nausea or vomiting. Denies any black stool or blood in her stool. 11/08/2023 Patient seen and examined today as a follow-up. She continues to report no abdominal pain, nausea or vomiting. No blood in her stool or black stool. Stool occult negative, hemoglobin stable at 9.3, platelets 435,000. Objective - Vital Signs Vital signs: Vital Signs Temp 99.1 F 11/08/23 01:57 Pulse 86 11/08/23 01:57 Resp 17 11/08/23 01:57 BP 139/69 11/08/23 01:57 Pulse Ox 94 L 11/08/23 01:57 FiO2 Intake & Output 11/07/23 11/08/23 11/08/23 18:59 06:59 18:59 Intake Total 480 Output Total 1200 325 Balance -720 -325 Intake: Oral 480 Output: Urine 1200 325 Other: Voiding Method External Catheter External Catheter # Voids 1 # Bowel Movements 1 - Exam General appearance: The patient is alert, oriented, appears in no acute distress. HET: Head is normocephalic and atraumatic. Pupils are equal and reactive. Neck: Supple. Abdomen: Soft, nontender, nondistended. Extremities: Charcot foot. Right foot with previous great toe amputation well- healed. Dressing to right foot. Cellulitis improving. Swelling improving. Neurological: No focal deficits. Peripheral neuropathy with decreased sensation in feet. - Labs CBC & Chem 7: 11/08/23 03:34 11/08/23 03:34 Labs: Abnormal Lab Results - Last 24 Hours (Table) 09/02/1711/07/23 11/08/23 Range/Units 11:21 20:41 03:34 RBC 3.34 L (3.80-5.40) m/uL Hgb 9.3 L (11.4-16.0) gm/dL Hct 30.2 L (34.0-46.0) % MCHC 30.9 L (31.0-37.0) g/dL Chloride (98-107) mmol/L POC Glucose (mg/dL) 177 H 141 H (70-110) mg/dL 11/08/23 Range/Units 03:34 RBC (3.80-5.40) m/uL Hgb (11.4-16.0) gm/dL Hct (34.0-46.0) % MCHC (31.0-37.0) g/dL Chloride 108 H (98-107) mmol/L POC Glucose (mg/dL) (70-110) mg/dL Microbiology - Last 24 Hours (Table) 11/05/23 10:47 Gram Stain - Final Foot - Right Wound Culture - Final Strep agalactiae - (group b) Staphylococcus aureus Assessment and Plan (1) Normochromic normocytic anemia Narrative/Plan: 63-year-old with multiple comorbidities including diabetes mellitus, peripheral neuropathy and diabetic ulcer was found to be anemic on admission. Patient states she has a history of anemia and has had workup in the past with upper and lower endoscopy. Iron studies show low iron with normal ferritin. She is currently on iron infusions. Possible etiology includes anemia of chronic disease, less likely appears to be anemia of acute blood loss as patient is without any GI signs of blood loss. However can follow-up with gastroenterology and consider outpatient endoscopy if needed. Last EGD and colonoscopy done with Dr. Snyder at [facility] in August of 2014. EGD with findings of small hiatal hernia, gastritis and multiple gastric polyps. Colonoscopy with normal colon. Current Visit: Yes Status: Acute Code(s): D64.9 - ANEMIA, UNSPECIFIED SNOMED Code(s): 05078934 (2) Cellulitis Current Visit: Yes Status: Acute Code(s): L03.90 - CELLULITIS, UNSPECIFIED SNOMED Code(s): 198659195 (3) Diabetes mellitus Current Visit: Yes Status: Acute Code(s): E11.9 - TYPE 2 DIABETES MELLITUS WITHOUT COMPLICATIONS SNOMED Code(s): 81899175 (4) Leukocytosis Current Visit: Yes Status: Acute Code(s): D72.829 - ELEVATED WHITE BLOOD CELL COUNT, UNSPECIFIED SNOMED Code(s): 874203975 (5) Peripheral neuropathy Current Visit: Yes Status: Acute Code(s): G62.9 - POLYNEUROPATHY, UNSPECIFIED SNOMED Code(s): 911229968 (6) Wound of right foot Current Visit: Yes Status: Acute Code(s): S91.301A - UNSPECIFIED OPEN WOUND, RIGHT FOOT, INITIAL ENCOUNTER SNOMED Code(s): 096603462 Plan: 1. Continue symptomatic and supportive care 2. Continue iron infusions as ordered 3. Stool occult negative, no signs of GI bleed 4. No plans on endoscopic evaluation 5. Discussed with patient follow-up in outpatient setting once infection heals and can consider outpatient endoscopies at that time. Thank you for this consultation, patient is cleared from gastroenterology for discharge. We will sign off at this time. Dr. Li Snyder I agree with the dictator's note, documented as a scribe by Ailyn Cutler.
[2023-11-08 11:47] LABS: Glucose,Whole Blood 136 mg/dL (70-110)
[2023-11-08] MEDS ORDERED: VANCOMYCIN TROUGH DUE 1 EACH MISC MISCELLANE ONE (15:00)
--- NOTE | 2023-11-08 15:50 | P.PN ---
Subjective Progress Note Date: 11/08/23 Principal diagnosis: Reason for follow-up is right diabetic foot infection Patient is a 63-year-old female with a past medical history significant diabetes mellitus reflux hypertension did have a recent right big toe diabetic foot infection requiring amputation at [facility] patient presenting to the hospital concerning for nausea not feeling well and did have elevated blood sugar and also noticed to have right foot abscess and cellulitis. On today's evaluation that is 11/08/2023,the patient remains to be afebrile, patient is on room air not requiring supplemental oxygen and denies any shortness of breath no chest pain or cough.Patient denies having any nausea or vomiting, no abdominal pain and no diarrhea denies pain to the right foot wound or any worsening drainage. Patient white count normalized to 10.3, creatinine 0.82 local cultures with strep MSSA and anaerobes Objective - Vital Signs Vital signs: Vital Signs Temp 98.2 F 11/08/23 07:32 Pulse 78 11/08/23 07:32 Resp 18 11/08/23 07:32 BP 146/80 11/08/23 07:32 Pulse Ox 98 11/08/23 07:32 FiO2 Intake & Output 11/07/23 11/08/23 11/08/23 18:59 06:59 18:59 Intake Total 480 Output Total 1200 325 Balance -720 -325 Intake: Oral 480 Output: Urine 1200 325 Other: Voiding Method External Catheter External Catheter # Voids 1 1 # Bowel Movements 1 2 - Exam GENERAL DESCRIPTION: Middle-age female up in the chair in no distress RESPIRATORY SYSTEM: Unlabored breathing , decreased breath sounds at bases HEART: S1 S2 regular rate and rhythm , ABDOMEN: Soft , no tenderness EXTREMITIES: Right foot is currently dressed - Labs CBC & Chem 7: 11/08/23 03:34 11/08/23 03:34 Labs: Abnormal Lab Results - Last 24 Hours (Table) 11/07/23 11/08/23 11/08/23 Range/Units 20:41 03:34 03:34 RBC 3.34 L (3.80-5.40) m/uL Hgb 9.3 L (11.4-16.0) gm/dL Hct 30.2 L (34.0-46.0) % MCHC 30.9 L (31.0-37.0) g/dL Chloride (98-107) mmol/L POC Glucose (mg/dL) 141 H (70-110) mg/dL Procalcitonin 0.73 H (0.02-0.50) ng/mL 11/08/23 11/08/23 Range/Units 03:34 11:45 RBC (3.80-5.40) m/uL Hgb (11.4-16.0) gm/dL Hct (34.0-46.0) % MCHC (31.0-37.0) g/dL Chloride 108 H (98-107) mmol/L POC Glucose (mg/dL) 136 H (70-110) mg/dL Procalcitonin (0.02-0.50) ng/mL Microbiology - Last 24 Hours (Table) 11/05/23 10:47 Gram Stain - Final Foot - Right Wound Culture - Final Strep agalactiae - (group b) Staphylococcus aureus Assessment and Plan (1) Foot abscess, right Current Visit: Yes Status: Acute Code(s): L02.611 - CUTANEOUS ABSCESS OF RIGHT FOOT SNOMED Code(s): 37668826119565617 (2) Leukocytosis Current Visit: Yes Status: Acute Code(s): D72.829 - ELEVATED WHITE BLOOD CELL COUNT, UNSPECIFIED SNOMED Code(s): 898696274 Plan: 1patient presented to hospital with a right diabetic foot infection in this patient who recently did have right big toe amputation now presenting with the likely infected callus on the plantar aspect of the right foot with second infection and abscess formation as there was evidence of purulent drainage will need to cover for the polymicrobial antonio associated with diabetic foot infection. 2patient did have an MRI did not mention any abscess concern for possible osteomyelitis vascular surgeon recommending no debridement or culture 3local cultures has been finalized with strep MSSA and anaerobes we will get up PICC line plan is for a 6-week course of IV Unasyn 3 g every 6 hours and close outpatient follow-up question concern answered Dictation was produced using [employer] dictation software. please excuse any grammatical, word or spelling errors. Time with Patient: Less than 30
[2023-11-08] MEDS: AMPICILLIN-SULBACTAM 3 GM in SODIUM CHLORIDE 0.9% 100 ML IVPB SCH (16:23)
--- NOTE | 2023-11-08 17:12 | P.PN ---
Progress Note - Text Progress Note Date: 11/08/23 Patient is a 63-year-old female was seen at [facility] because of generalized weakness fever, not feeling well and found to have leukocytosis found to have infection of the left foot circumferential plantar wound. Patient's wound has a purulent base. Patient also hyperglycemic. 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 Patient also complaining of mild epigastric abdominal discomfort. November 06, 2023: Sitting up in bed. Pain well-controlled. Eating well. Had a bowel movement. Patient has anemia. She states about 4 years ago patient had a EGD colonoscopy that was negative. Deep tissue cultures obtained by vascular. MRI of the foot has been ordered by the time. Patient on IV Unasyn and IV vancomycin. Patient is and niece at the bedside discussed. November 06: Did sit up in a chair earlier. Pain controlled. MRI done today showed no evidence of abscess. Abnormal bone marrow suggesting osteomyelitis. Also suggestions of tenosynovitis. Some of these changes could be postsurgical from previous amputation. Getting IV iron for iron deficiency. GI Dr. Li Snyder consulted. Vancomycin has been taken off. Cultures are growing Streptococcus agalactiae and Staph aureus, MSSA November 07: Up in a chair. Comfortable. IV Unasyn. PICC line ordered. Not for any surgical intervention. Discussed with ID. Discussed with showcase trimmer. Looking for ECF IV antibiotics. Authorization submitted. Getting IV iron. Seen by Dr. Li Snyder from GI. Outpatient follow-up. Active Medications Acetaminophen (Acetaminophen Tab 325 Mg Tab) 650 mg PO Q6HR PRN PRN Reason: Mild Pain or Fever > 100.5 Last Admin: 11/06/23 21:32 Dose: 650 mg Al Hydroxide/Mg Hydroxide (Mag Hydrox/Al Hydrox/Simeth 30 Ml Cup) 15 ml PO Q6HR PRN PRN Reason: Indigestion Atorvastatin Calcium (Atorvastatin 40 Mg Tab) 40 mg PO HS [facility] Last Admin: 11/07/23 20:42 Dose: 40 mg Calcium Carbonate/Glycine (Calcium Carbonate 500 Mg Chewable) 1,000 mg PO Q4HR PRN PRN Reason: Dyspepsia Clonazepam (Clonazepam 0.5 Mg Tab) 0.5 mg PO BID PRN PRN Reason: Anxiety Last Admin: 11/07/23 09:36 Dose: 0.5 mg Dapagliflozin (Dapagliflozin Propanediol 10 Mg Tablet) 10 mg PO DAILY [facility] Last Admin: 11/08/23 08:08 Dose: 10 mg Enoxaparin Sodium (Enoxaparin 40 Mg/0.4 Ml Syringe) 40 mg SQ DAILY [facility] Last Admin: 11/08/23 08:08 Dose: 40 mg Escitalopram Oxalate (Escitalopram 20 Mg Tab) 20 mg PO DAILY [facility] Last Admin: 11/08/23 08:08 Dose: 20 mg Famotidine (Famotidine 20 Mg Tab) 20 mg PO HS [facility] Last Admin: 11/07/23 20:42 Dose: 20 mg Ferrous Sulfate (Ferrous Sulfate 325 Mg Tab) 325 mg PO W/LUNCH [facility] Last Admin: 11/08/23 16:26 Dose: 325 mg Glipizide (Glipizide 10 Mg Tab) 10 mg PO BID [facility] Last Admin: 11/08/23 08:08 Dose: 10 mg Sodium Chloride (Saline 0.9%) 1,000 mls @ 75 mls/hr IV .[id number] [facility] Last Admin: 11/08/23 06:29 Dose: Not Given Ferric Sodium Gluconate 125 mg (/ Sodium Chloride) 110 mls @ 100 mls/hr IVPB DAILY [facility] Stop: 11/09/23 10:05 Last Admin: 11/08/23 11:11 Dose: 100 mls/hr Ampicillin Sodium/Sulbactam (Sodium 3 gm/ Sodium Chloride) 100 mls @ 200 mls/hr IVPB Q6HR [facility]; Protocol Last Admin: 11/08/23 16:23 Dose: 200 mls/hr Insulin Aspart (Insulin Aspart (Novolog) 100 Unit/Ml Vial) 0 unit SQ AC-TID [facility]; Protocol Last Admin: 11/08/23 12:04 Dose: Not Given Lisinopril (Lisinopril 2.5 Mg Tab) 2.5 mg PO DAILY [facility] Last Admin: 11/08/23 08:08 Dose: 2.5 mg Loratadine (Loratadine 10 Mg Tab) 10 mg PO DAILY [facility] Last Admin: 11/08/23 08:08 Dose: 10 mg Metformin HCl (Metformin 500 Mg Tab) 1,000 mg PO BID-W/MEALS [facility] Last Admin: 11/08/23 16:26 Dose: 1,000 mg Naloxone HCl (Naloxone 0.4 Mg/Ml 1 Ml Vial) 0.2 mg IV Q2M PRN PRN Reason: Opioid Reversal Ondansetron HCl (Ondansetron 4 Mg/2 Ml Vial) 4 mg IVP Q8HR PRN PRN Reason: Nausea And Vomiting Last Admin: 11/06/23 17:17 Dose: 4 mg Pantoprazole Sodium (Pantoprazole 40 Mg Tablet) 40 mg PO DAILY [facility] Last Admin: 11/08/23 08:08 Dose: 40 mg Tramadol HCl (Tramadol 50 Mg Tab) 50 mg PO Q6H PRN PRN Reason: Moderate Pain (Scale 4 to 6) Last Admin: 11/05/23 20:51 Dose: 50 mg On examination: VITAL SIGNS: 98.2, 78, 18, 146 per 80, 98% room air GENERAL APPEARANCE: Comfortable HEENT: Normal external appearance of nose and ear. Oral cavity normal EYES: Pupils equal. Conjunctiva normal. NECK: JVD not raised. Mass not palpable. RESPIRATORY: Respiratory effort normal. Lungs clear to auscultation. CARDIOVASCULAR: First and second sounds normal. No edema. ABDOMEN: Soft. Liver and spleen not palpable. No tenderness. No mass palpable. PSYCHIATRY: Alert and oriented x3. Mood and affect normal. EXTREMITY: Right foot in a dressing INVESTIGATIONS, reviewed in the clinical context: November 07: White count 10.3 hemoglobin 9.3 platelets 435 potassium 4.8 creatinine 0.82. Procalcitonin 0.73 Right foot MRI [November 06, with and without contrast] plantar surface without evidence for abscess. Sinusitis changes throughout the foot. Abnormal bone marrow signal suggesting osteomyelitis. Immediately next to the wound. Fluid signal along flexor hallucis longus and flexor digitorum longus suggestive of tenosynovitis. Some of it also could be postsurgical changes given amputation. November 05: White: 0.1 hemoglobin 9 platelets 326 sodium 140 potassium 4.4 BUN 20 creatinine 1.01 Iron 16 TIBC 273% saturation 5.8 transferrin [address] [November 03] streaky edema of the right lower extremity with organizing fluid collection along the medial foot surrounding multiple osseous structures. With abscess/cellulitis. Assessment and plan: -Sepsis secondary to right foot cellulitis with osteomyelitis-acute, wound cultures grew Streptococcus agalactiae, Staphylococcus aureus-MSSA IV Unasyn. Seen by vascular no need for any surgical intervention PICC line for IV antibiotics -Acute renal failure secondary to sepsis.: Improved Admission creatinine 1.49. -Mild hypovolemic hyponatremia: Corrected IV fluids -Type 2 diabetes mellitus uncontrolled with hyperglycemia. Follow Accu-Cheks. Metformin. -Diabetic peripheral neuropathy -Hyperlipidemia Lipitor -Gastroesophageal reflux disease Protonix -Essential hypertension Lisinopril -Iron deficiency anemia GI Dr. Snyder saw the patient. For outpatient follow-up IV Ferrlecit x 3 doses. Oral ferrous sulfate -No code Spoke to showcase trimmer. Looking into authorization for ECF for IV antibiotics. Past Medical History Past Medical History: Diabetes Mellitus, GERD/Reflux, Hypertension Additional Past Medical History / Comment(s): Anemia, bleeding ulcer History of Any Multi-Drug Resistant Organisms: None Reported Past Surgical History: Appendectomy, Section, Cholecystectomy, Hysterectomy Additional Past Surgical History / Comment(s): right foot- greater toe amputation- 01/2023 Past Psychological History: Anxiety, Depression Past Alcohol Use History: None Reported Past Drug Use History: None Reported
[2023-11-08 17:15] LABS: Glucose,Whole Blood 137 mg/dL (70-110)
[2023-11-08 21:14] LABS: Glucose,Whole Blood 158 mg/dL (70-110)
[2023-11-09 06:30] LABS: Glucose,Whole Blood 127 mg/dL (70-110)
[2023-11-09 12:12] LABS: Glucose,Whole Blood 131 mg/dL (70-110)
[2023-11-09 16:48] LABS: Glucose,Whole Blood 121 mg/dL (70-110)
--- NOTE | 2023-11-09 19:21 | P.PN ---
Progress Note - Text Progress Note Date: 11/09/23 Patient is a 63-year-old female was seen at [facility] because of generalized weakness fever, not feeling well and found to have leukocytosis found to have infection of the left foot circumferential plantar wound. Patient's wound has a purulent base. Patient also hyperglycemic. 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 Patient also complaining of mild epigastric abdominal discomfort. November 06, 2023: Sitting up in bed. Pain well-controlled. Eating well. Had a bowel movement. Patient has anemia. She states about 4 years ago patient had a EGD colonoscopy that was negative. Deep tissue cultures obtained by vascular. MRI of the foot has been ordered by the time. Patient on IV Unasyn and IV vancomycin. Patient is and niece at the bedside discussed. November 06: Did sit up in a chair earlier. Pain controlled. MRI done today showed no evidence of abscess. Abnormal bone marrow suggesting osteomyelitis. Also suggestions of tenosynovitis. Some of these changes could be postsurgical from previous amputation. Getting IV iron for iron deficiency. GI Dr. Li Snyder consulted. Vancomycin has been taken off. Cultures are growing Streptococcus agalactiae and Staph aureus, MSSA November 07: Up in a chair. Comfortable. IV Unasyn. PICC line ordered. Not for any surgical intervention. Discussed with ID. Discussed with high risk case manager. Looking for ECF IV antibiotics. Authorization submitted. Getting IV iron. Seen by Dr. Li Snyder from GI. Outpatient follow-up. November 08: Patient is due to go to the ECF today. Authorization was in place. She owes over $300. She cannot afford the same and her sister is out of town who could not bring the money. Hence we will await social insurance specialist to sort this out. Otherwise patient doing well tolerating diet getting antibiotics. Active Medications Acetaminophen (Acetaminophen Tab 325 Mg Tab) 650 mg PO Q6HR PRN PRN Reason: Mild Pain or Fever > 100.5 Last Admin: 11/06/23 21:32 Dose: 650 mg Al Hydroxide/Mg Hydroxide (Mag Hydrox/Al Hydrox/Simeth 30 Ml Cup) 15 ml PO Q6HR PRN PRN Reason: Indigestion Atorvastatin Calcium (Atorvastatin 40 Mg Tab) 40 mg PO HS [facility] Last Admin: 11/08/23 20:45 Dose: 40 mg Calcium Carbonate/Glycine (Calcium Carbonate 500 Mg Chewable) 1,000 mg PO Q4HR PRN PRN Reason: Dyspepsia Clonazepam (Clonazepam 0.5 Mg Tab) 0.5 mg PO BID PRN PRN Reason: Anxiety Last Admin: 11/09/23 17:23 Dose: 0.5 mg Dapagliflozin (Dapagliflozin Propanediol 10 Mg Tablet) 10 mg PO DAILY [facility] Last Admin: 11/09/23 10:19 Dose: 10 mg Enoxaparin Sodium (Enoxaparin 40 Mg/0.4 Ml Syringe) 40 mg SQ DAILY [facility] Last Admin: 11/09/23 10:21 Dose: 40 mg Escitalopram Oxalate (Escitalopram 20 Mg Tab) 20 mg PO DAILY [facility] Last Admin: 11/09/23 10:21 Dose: 20 mg Famotidine (Famotidine 20 Mg Tab) 20 mg PO HS [facility] Last Admin: 11/08/23 20:45 Dose: 20 mg Ferrous Sulfate (Ferrous Sulfate 325 Mg Tab) 325 mg PO W/LUNCH [facility] Last Admin: 11/09/23 13:01 Dose: 325 mg Glipizide (Glipizide 10 Mg Tab) 10 mg PO BID [facility] Last Admin: 11/09/23 10:21 Dose: 10 mg Sodium Chloride (Saline 0.9%) 1,000 mls @ 75 mls/hr IV .[id number] [facility] Last Admin: 11/09/23 10:22 Dose: Not Given Ampicillin Sodium/Sulbactam (Sodium 3 gm/ Sodium Chloride) 100 mls @ 200 mls/hr IVPB Q6HR [facility]; Protocol Last Admin: 11/09/23 17:16 Dose: 200 mls/hr Insulin Aspart (Insulin Aspart (Novolog) 100 Unit/Ml Vial) 0 unit SQ AC-TID [facility]; Protocol Last Admin: 11/09/23 17:10 Dose: Not Given Lisinopril (Lisinopril 2.5 Mg Tab) 2.5 mg PO DAILY [facility] Last Admin: 11/09/23 10:21 Dose: 2.5 mg Loratadine (Loratadine 10 Mg Tab) 10 mg PO DAILY [facility] Last Admin: 11/09/23 10:19 Dose: 10 mg Metformin HCl (Metformin 500 Mg Tab) 1,000 mg PO BID-W/MEALS [facility] Last Admin: 11/09/23 17:23 Dose: 1,000 mg Naloxone HCl (Naloxone 0.4 Mg/Ml 1 Ml Vial) 0.2 mg IV Q2M PRN PRN Reason: Opioid Reversal Ondansetron HCl (Ondansetron 4 Mg/2 Ml Vial) 4 mg IVP Q8HR PRN PRN Reason: Nausea And Vomiting Last Admin: 11/06/23 17:17 Dose: 4 mg Pantoprazole Sodium (Pantoprazole 40 Mg Tablet) 40 mg PO DAILY [facility] Last Admin: 11/09/23 10:20 Dose: 40 mg Tramadol HCl (Tramadol 50 Mg Tab) 50 mg PO Q6H PRN PRN Reason: Moderate Pain (Scale 4 to 6) Last Admin: 11/05/23 20:51 Dose: 50 mg On examination: VITAL SIGNS: 98.4, 682, 16, 120 x 67, 96% room air GENERAL APPEARANCE: Comfortable, up in recliner HEENT: Normal external appearance of nose and ear. Oral cavity normal EYES: Pupils equal. Conjunctiva normal. NECK: JVD not raised. Mass not palpable. RESPIRATORY: Respiratory effort normal. Lungs clear to auscultation. CARDIOVASCULAR: First and second sounds normal. No edema. ABDOMEN: Soft. Liver and spleen not palpable. No tenderness. No mass palpable. PSYCHIATRY: Alert and oriented x3. Mood and affect normal. EXTREMITY: Right foot in a dressing INVESTIGATIONS, reviewed in the clinical context: November 07: White count 10.3 hemoglobin 9.3 platelets 435 potassium 4.8 creatinine 0.82. Procalcitonin 0.73 Right foot MRI [November 06, with and without contrast] plantar surface without evidence for abscess. Sinusitis changes throughout the foot. Abnormal bone marrow signal suggesting osteomyelitis. Immediately next to the wound. Fluid signal along flexor hallucis longus and flexor digitorum longus suggestive of tenosynovitis. Some of it also could be postsurgical changes given amputation. November 05: White: 0.1 hemoglobin 9 platelets 326 sodium 140 potassium 4.4 BUN 20 creatinine 1.01 Iron 16 TIBC 273% saturation 5.8 transferrin [address] [November 03] streaky edema of the right lower extremity with organizing fluid collection along the medial foot surrounding multiple osseous structures. With abscess/cellulitis. Assessment and plan: -Sepsis secondary to right foot cellulitis with osteomyelitis-acute, wound cultures grew Streptococcus agalactiae, Staphylococcus aureus-MSSA IV Unasyn. Seen by vascular no need for any surgical intervention PICC line for IV antibiotics -Acute renal failure secondary to sepsis.: Improved Admission creatinine 1.49. -Mild hypovolemic hyponatremia: Corrected IV fluids -Type 2 diabetes mellitus uncontrolled with hyperglycemia. Follow Accu-Cheks. Metformin. -Diabetic peripheral neuropathy -Hyperlipidemia Lipitor -Gastroesophageal reflux disease Protonix -Essential hypertension Lisinopril -Iron deficiency anemia GI Dr. Snyder saw the patient. For outpatient follow-up IV Ferrlecit x 3 doses. Oral ferrous sulfate -No code -Disposition: Patient has an authorization go to [facility]. Has to pay down over $300. Cannot afford the same. Other family members out of town. Await social insurance specialist to help sort out financial issues, before patient can be discharged to ECF Past Medical History Past Medical History: Diabetes Mellitus, GERD/Reflux, Hypertension Additional Past Medical History / Comment(s): Anemia, bleeding ulcer History of Any Multi-Drug Resistant Organisms: None Reported Past Surgical History: Appendectomy, Section, Cholecystectomy, Hysterectomy Additional Past Surgical History / Comment(s): right foot- greater toe amputation- 01/2023 Past Psychological History: Anxiety, Depression Past Alcohol Use History: None Reported Past Drug Use History: None Reported
[2023-11-09 21:00] LABS: Glucose,Whole Blood 142 mg/dL (70-110)
[2023-11-10 06:07] LABS: Glucose,Whole Blood 64 mg/dL (70-110)
[2023-11-10 07:13] LABS: Glucose,Whole Blood 155 mg/dL (70-110)
[2023-11-10 11:49] LABS: Glucose,Whole Blood 53 mg/dL (70-110)
[2023-11-10 12:01] LABS: Glucose,Whole Blood 86 mg/dL (70-110)
--- NOTE | 2023-11-10 13:55 | P.PN ---
Progress Note - Text Progress Note Date: 11/10/23 Patient is a 63-year-old female was seen at [facility] because of generalized weakness fever, not feeling well and found to have leukocytosis found to have infection of the left foot circumferential plantar wound. Patient's wound has a purulent base. Patient also hyperglycemic. 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 Patient also complaining of mild epigastric abdominal discomfort. November 06, 2023: Sitting up in bed. Pain well-controlled. Eating well. Had a bowel movement. Patient has anemia. She states about 4 years ago patient had a EGD colonoscopy that was negative. Deep tissue cultures obtained by vascular. MRI of the foot has been ordered by the time. Patient on IV Unasyn and IV vancomycin. Patient is and niece at the bedside discussed. November 06: Did sit up in a chair earlier. Pain controlled. MRI done today showed no evidence of abscess. Abnormal bone marrow suggesting osteomyelitis. Also suggestions of tenosynovitis. Some of these changes could be postsurgical from previous amputation. Getting IV iron for iron deficiency. GI Dr. Li Snyder consulted. Vancomycin has been taken off. Cultures are growing Streptococcus agalactiae and Staph aureus, MSSA November 07: Up in a chair. Comfortable. IV Unasyn. PICC line ordered. Not for any surgical intervention. Discussed with ID. Discussed with case therapist. Looking for ECF IV antibiotics. Authorization submitted. Getting IV iron. Seen by Dr. Li Snyder from GI. Outpatient follow-up. November 08: Patient is due to go to the ECF today. Authorization was in place. She owes over $300. She cannot afford the same and her sister is out of town who could not bring the money. Hence we will await addiction social worker to sort this out. Otherwise patient doing well tolerating diet getting antibiotics. November 09: Patient pending to pay dollars dollars [phone]. Without this F cannot be able to accept the patient. r. hospital food service worker to look into the same. Look into indigent fund. Otherwise patient doing stable. Active Medications Acetaminophen (Acetaminophen Tab 325 Mg Tab) 650 mg PO Q6HR PRN PRN Reason: Mild Pain or Fever > 100.5 Last Admin: 11/06/23 21:32 Dose: 650 mg Al Hydroxide/Mg Hydroxide (Mag Hydrox/Al Hydrox/Simeth 30 Ml Cup) 15 ml PO Q6HR PRN PRN Reason: Indigestion Atorvastatin Calcium (Atorvastatin 40 Mg Tab) 40 mg PO HS [facility] Last Admin: 11/09/23 20:39 Dose: 40 mg Calcium Carbonate/Glycine (Calcium Carbonate 500 Mg Chewable) 1,000 mg PO Q4HR PRN PRN Reason: Dyspepsia Clonazepam (Clonazepam 0.5 Mg Tab) 0.5 mg PO BID PRN PRN Reason: Anxiety Last Admin: 11/09/23 17:23 Dose: 0.5 mg Dapagliflozin (Dapagliflozin Propanediol 10 Mg Tablet) 10 mg PO DAILY [facility] Last Admin: 11/10/23 08:11 Dose: 10 mg Enoxaparin Sodium (Enoxaparin 40 Mg/0.4 Ml Syringe) 40 mg SQ DAILY [facility] Last Admin: 11/10/23 08:10 Dose: 40 mg Escitalopram Oxalate (Escitalopram 20 Mg Tab) 20 mg PO DAILY [facility] Last Admin: 11/10/23 08:11 Dose: 20 mg Famotidine (Famotidine 20 Mg Tab) 20 mg PO HS [facility] Last Admin: 11/09/23 20:39 Dose: 20 mg Ferrous Sulfate (Ferrous Sulfate 325 Mg Tab) 325 mg PO W/LUNCH [facility] Last Admin: 11/10/23 11:45 Dose: 325 mg Glipizide (Glipizide 10 Mg Tab) 10 mg PO BID [facility] Last Admin: 11/10/23 08:11 Dose: 10 mg Sodium Chloride (Saline 0.9%) 1,000 mls @ 75 mls/hr IV .[id number] [facility] Last Admin: 11/10/23 11:46 Dose: 75 mls/hr Ampicillin Sodium/Sulbactam (Sodium 3 gm/ Sodium Chloride) 100 mls @ 200 mls/hr IVPB Q6HR [facility]; Protocol Last Admin: 11/10/23 11:45 Dose: 200 mls/hr Insulin Aspart (Insulin Aspart (Novolog) 100 Unit/Ml Vial) 0 unit SQ AC-TID [facility]; Protocol Last Admin: 11/10/23 12:31 Dose: Not Given Lisinopril (Lisinopril 2.5 Mg Tab) 2.5 mg PO DAILY [facility] Last Admin: 11/10/23 08:11 Dose: 2.5 mg Loratadine (Loratadine 10 Mg Tab) 10 mg PO DAILY [facility] Last Admin: 11/10/23 08:10 Dose: 10 mg Metformin HCl (Metformin 500 Mg Tab) 1,000 mg PO BID-W/MEALS [facility] Last Admin: 11/10/23 08:19 Dose: 1,000 mg Naloxone HCl (Naloxone 0.4 Mg/Ml 1 Ml Vial) 0.2 mg IV Q2M PRN PRN Reason: Opioid Reversal Ondansetron HCl (Ondansetron 4 Mg/2 Ml Vial) 4 mg IVP Q8HR PRN PRN Reason: Nausea And Vomiting Last Admin: 11/06/23 17:17 Dose: 4 mg Pantoprazole Sodium (Pantoprazole 40 Mg Tablet) 40 mg PO DAILY [facility] Last Admin: 11/10/23 08:11 Dose: 40 mg Tramadol HCl (Tramadol 50 Mg Tab) 50 mg PO Q6H PRN PRN Reason: Moderate Pain (Scale 4 to 6) Last Admin: 11/05/23 20:51 Dose: 50 mg On examination: VITAL SIGNS: 98, 75, 18, 121 x 67, 96% room air GENERAL APPEARANCE: Comfortable, up in recliner HEENT: Normal external appearance of nose and ear. Oral cavity normal EYES: Pupils equal. Conjunctiva normal. NECK: JVD not raised. Mass not palpable. RESPIRATORY: Respiratory effort normal. Lungs clear to auscultation. CARDIOVASCULAR: First and second sounds normal. No edema. ABDOMEN: Soft. Liver and spleen not palpable. No tenderness. No mass palpable. PSYCHIATRY: Alert and oriented x3. Mood and affect normal. EXTREMITY: Right foot in a dressing INVESTIGATIONS, reviewed in the clinical context: November 07: White count 10.3 hemoglobin 9.3 platelets 435 potassium 4.8 creatinine 0.82. Procalcitonin 0.73 Right foot MRI [November 06, with and without contrast] plantar surface without evidence for abscess. Sinusitis changes throughout the foot. Abnormal bone marrow signal suggesting osteomyelitis. Immediately next to the wound. Fluid signal along flexor hallucis longus and flexor digitorum longus suggestive of tenosynovitis. Some of it also could be postsurgical changes given amputation. November 05: White: 0.1 hemoglobin 9 platelets 326 sodium 140 potassium 4.4 BUN 20 creatinine 1.01 Iron 16 TIBC 273% saturation 5.8 transferrin [address] [November 03] streaky edema of the right lower extremity with organizing fluid collection along the medial foot surrounding multiple osseous structures. With abscess/cellulitis. Assessment and plan: -Sepsis secondary to right foot cellulitis with osteomyelitis-acute, wound cultures grew Streptococcus agalactiae, Staphylococcus aureus-MSSA IV Unasyn. Seen by vascular no need for any surgical intervention PICC line for IV antibiotics -Acute renal failure secondary to sepsis.: Improved Admission creatinine 1.49. -Mild hypovolemic hyponatremia: Corrected IV fluids -Type 2 diabetes mellitus uncontrolled with hyperglycemia. Follow Accu-Cheks. Metformin. -Diabetic peripheral neuropathy -Hyperlipidemia Lipitor -Gastroesophageal reflux disease Protonix -Essential hypertension Lisinopril -Iron deficiency anemia GI Dr. Snyder saw the patient. For outpatient follow-up IV Ferrlecit x 3 doses. Oral ferrous sulfate -No code -Disposition: Patient has an authorization go to ECF. Has to pay down $ 302.19cannot afford the same. Other family members out of town. Await input from social work to see how to get about patient's payment before she can go to ECF Past Medical History Past Medical History: Diabetes Mellitus, GERD/Reflux, Hypertension Additional Past Medical History / Comment(s): Anemia, bleeding ulcer History of Any Multi-Drug Resistant Organisms: None Reported Past Surgical History: Appendectomy, Section, Cholecystectomy, Hysterectomy Additional Past Surgical History / Comment(s): right foot- greater toe amputation- 01/2023 Past Psychological History: Anxiety, Depression Past Alcohol Use History: None Reported Past Drug Use History: None Reported
--- NOTE | 2023-11-10 15:22 | P.PN ---
Subjective Progress Note Date: 11/09/23 Principal diagnosis: Reason for follow-up is right diabetic foot infection Patient is a 63-year-old female with a past medical history significant diabetes mellitus reflux hypertension did have a recent right big toe diabetic foot infection requiring amputation at [place] patient presenting to the hospital concerning for nausea not feeling well and did have elevated blood sugar and also noticed to have right foot abscess and cellulitis. On today's evaluation that is 11/09/2023, the patient continues to be afebrile, the patient is on room air and breathing comfortably, the Pt denies having any chest pain or cough, the patient denies having any abdominal pain no vomiting or any diarrhea has been reported by the nursing staff, the patient has pain to the right foot wound. No new lab has been obtained today local culture positive for Streptococcus agalactiae MSSA [place] Objective - Vital Signs Vital signs: Vital Signs Temp 98.3 F 11/09/23 07:45 Pulse 73 11/09/23 07:45 Resp 17 11/09/23 07:45 BP 130/74 11/09/23 07:45 Pulse Ox 95 11/09/23 07:45 FiO2 Intake & Output 11/08/23 11/09/23 11/09/23 18:59 06:59 18:59 Weight 104.5 kg Other: # Voids 1 1 # Bowel Movements 1 - Exam GENERAL DESCRIPTION: Middle-age female up in the chair in no distress RESPIRATORY SYSTEM: Unlabored breathing , decreased breath sounds at bases HEART: S1 S2 regular rate and rhythm , ABDOMEN: Soft , no tenderness EXTREMITIES: Right foot is currently dressed - Labs CBC & Chem 7: 11/08/23 03:34 11/08/23 03:34 Labs: Abnormal Lab Results - Last 24 Hours (Table) 11/08/23 11/08/23 11/09/23 Range/Units 17:13 21:12 06:29 POC Glucose (mg/dL) 137 H 158 H 127 H (70-110) mg/dL Microbiology - Last 24 Hours (Table) 11/05/23 10:47 Anaerobic Culture - Preliminary Foot - Right Finegoldia magna Erika albicans Assessment and Plan (1) Foot abscess, right Current Visit: Yes Status: Acute Code(s): L02.611 - CUTANEOUS ABSCESS OF RIGHT FOOT SNOMED Code(s): 50459649381375735 (2) Leukocytosis Current Visit: Yes Status: Acute Code(s): D72.829 - ELEVATED WHITE BLOOD C ELL COUNT, UNSPECIFIED SNOMED Code(s): 482560597 Plan: 1patient presented to hospital with a right diabetic foot infection in this patient who recently did have right big toe amputation now presenting with the likely infected callus on the plantar aspect of the right foot with second infection and abscess formation as there was evidence of purulent drainage will need to cover for the polymicrobial antonio associated with diabetic foot infe ction. 2patient did have an MRI did not mention any abscess concern for possible osteomyelitis vascular surgeon recommending no debridement or culture 3local cultures has been finalized with strep MSSA and anaerobes 4-patient did get a PICC line, patient is currently receiving Unasyn and waiting for placement Dictation was produced using [employer] dictation software. please excuse any grammatical, word or spelling errors. Time with Patient: Less than 30
--- NOTE | 2023-11-10 15:22 | P.PN ---
Subjective Progress Note Date: 11/10/23 Principal diagnosis: Reason for follow-up is right diabetic foot infection Patient is a 63-year-old female with a past medical history significant diabetes mellitus reflux hypertension did have a recent right big toe diabetic foot infection requiring amputation at [place] patient presenting to the hospital concerning for nausea not feeling well and did have elevated blood sugar and also noticed to have right foot abscess and cellulitis. On today's evaluation that is 11/10/2023, Patient did have low-grade fever 100.8 F after midnight the patient is is afebrile since then patient is currently on room air and denies having any shortness of breath, the patient denies any chest pain or cough, the patient denies any nausea vomiting did not have any abdominal pain and no diarrhea, denies any worsening pain to the right foot wound. No new lab has been obtained today Objective - Vital Signs Vital signs: Vital Signs Temp 98.0 F 11/10/23 07:27 Pulse 75 11/10/23 07:27 Resp 18 11/10/23 07:27 BP 121/67 11/10/23 07:27 Pulse Ox 96 11/10/23 07:27 FiO2 Intake & Output 11/09/23 11/10/23 11/10/23 18:59 06:59 18:59 Intake Total 1000 Balance 1000 Weight 82 kg Intake: Intake, IV Titration 1000 Amount Ampicillin-Sulbactam 3 gm 100 In Sodium Chloride 0.9% 100 ml @ 200 mls/hr IVPB Q6HR [facility] Rx#:[id number] Sodium Chloride 0.9% 1, 900 000 ml @ 75 mls/hr IV . [id number] [facility] Rx#:[id number] Other: Voiding Method Bedside Commode Bedside Commode Bedside Commode # Voids 1 2 - Exam GENERAL DESCRIPTION: Middle-age female up in the chair in no distress RESPIRATORY SYSTEM: Unlabored breathing , decreased breath sounds at bases HEART: S1 S2 regular rate and rhythm , ABDOMEN: Soft , no tenderness EXTREMITIES: Right foot is currently dressed - Labs CBC & Chem 7: 11/08/23 03:34 11/08/23 03:34 Labs: Abnormal Lab Results - Last 24 Hours (Table) 11/09/23 11/09/23 11/10/23 Range/Units 16:44 20:58 06:06 POC Glucose (mg/dL) 121 H 142 H 64 L (70-110) mg/dL 11/10/23 11/10/23 Range/Units 07:12 11:47 POC Glucose (mg/dL) 155 H 53 L (70-110) mg/dL Microbiology - Last 24 Hours (Table) 11/05/23 10:47 Anaerobic Culture - Final Foot - Right Kadie mathis Erika albicans Assessment and Plan (1) Foot abscess, right Current Visit: Yes Status: Acute Code(s): L02.611 - CUTANEOUS ABSCESS OF RIG HT FOOT SNOMED Code(s): 76495681907853813 (2) Leukocytosis Current Visit: Yes Status: Acute Code(s): D72.829 - ELEVATED WHITE BLOOD CELL COUNT, UNSPECIFIED SNOMED Code(s): 365376263 Plan: 1patient presented to hospital with a right diabetic foot infection in this patient who recently did have right big toe amputation now presenting with the likely infected callus on the plantar aspect of the right foot with second infection and abscess formation as there was evidence of purulent drainage will need to cover for the polymicrobial antonio associated with diabetic foot infection. 2patient did have an MRI did not mention any abscess concern for possible osteomyelitis vascular surgeon recommending no debridement or culture 3local cultures has been finalized with strep MSSA and anaerobes 4-patient seem to be clinically responding to Unasyn to continue to finish a 6- week course of therapy currently waiting for placement Dictation was produced using [employer] dictation software. please excuse any grammatical, word or spelling errors.
[2023-11-10 17:02] LABS: Glucose,Whole Blood 78 mg/dL (70-110)
[2023-11-10 20:33] LABS: Glucose,Whole Blood 148 mg/dL (70-110)
[2023-11-11 06:31] LABS: Glucose,Whole Blood 70 mg/dL (70-110)
[2023-11-11 11:29] LABS: Glucose,Whole Blood 42 mg/dL (70-110)
[2023-11-11 11:57] LABS: Glucose,Whole Blood 94 mg/dL (70-110)
--- NOTE | 2023-11-11 12:54 | P.PN ---
Subjective Progress Note Date: 11/11/23 Principal diagnosis: Reason for follow-up is right diabetic foot infection Patient is a 63-year-old female with a past medical history significant diabetes mellitus reflux hypertension did have a recent right big toe diabetic foot infection requiring amputation at [place] patient presenting to the hospital concerning for nausea not feeling well and did have elevated blood sugar and also noticed to have right foot abscess and cellulitis. On today's evaluation that is 11/11/2023, patient has been afebrile, patient is breathing comfortably and is currently on room air, patient denies having any significant cough no chest pain shortness of breath, patient denies nausea vomiting or diarrhea and no abdominal pain, patient was noted to have significant purulent drainage from the right foot at the time of dressing changes. No new lab has been obtained today Objective - Vital Signs Vital signs: Vital Signs Temp 98.9 F 11/11/23 08:00 Pulse 74 11/11/23 08:00 Resp 16 11/11/23 08:00 BP 128/64 11/11/23 08:00 Pulse Ox 96 11/11/23 08:16 FiO2 21 11/11/23 08:16 Intake & Output 11/10/23 11/11/23 11/11/23 18:59 06:59 18:59 Other: Voiding Method Bedside Commode Bedside Commode # Voids 3 - Exam GENERAL DESCRIPTION: Middle-age female up in the chair in no distress RESPIRATORY SYSTEM: Unlabored breathing , decreased breath sounds at bases HEART: S1 S2 regular rate and rhythm , ABDOMEN: Soft , no tenderness EXTREMITIES: Right foot plantar wound with significant purulent drainage - Labs CBC & Chem 7: 11/08/23 03:34 11/08/23 03:34 Labs: Abnormal Lab Results - Last 24 Hours (Table) 11/10/23 11/11/23 Range/Units 20:31 11:24 POC Glucose (mg/dL) 148 H 42 L* (70-110) mg/dL Assessment and Plan (1) Foot abscess, right Current Visit: Yes Status: Acute Code(s): L02.611 - CUTANEOUS ABSCESS OF RIGHT FOOT SNOMED Code(s): 83027508547591607 (2) Leukocytosis Current Visit: Yes Status: Acute Code(s): D72.829 - ELEVATED WHITE BLOOD CELL COUNT, UNSPECIFIED SNOMED Code(s): 236201447 Plan: 1patient presented to hospital with a right diabetic foot infection in this patient who recently did have right big toe amputation now presenting with the likely infected callus on the plantar aspect of the right foot with second infection and abscess formation as there was evidence of purulent drainage will need to cover for the polymicrobial antonio associated with diabetic foot infection. 2patient did have an MRI did not mention any abscess concern for possible osteomyelitis vascular surgeon recommending no debridement or culture 3local cultures has been finalized with strep MSSA and anaerobes 4-patient did have significant purulent drainage from the right foot wound vascular surgery has been reconsulted for I&D and deep culture continue Unasyn discussed with admitting physician Dictation was produced using [employer] dictation software. please excuse any grammatical, word or spelling errors. Time with Patient: Less than 30
--- NOTE | 2023-11-11 13:09 | P.GSCN ---
History of Present Illness Consult date: 11/11/23 Reason for Consult: Right foot abscess Requesting physician: Horacio Levin History of present illness: This is a pleasant 63-year-old female with a history of diabetes mellitus, peripheral neuropathy, chronic right foot wound, previous right foot wound infection requiring right great toe amputation and hypertension who presented to the emergency department as a transfer from [facility] for concerns of infected right foot wound on 11/04/2023. She has a past medical history including diabetes mellitus, peripheral neuropathy, chronic right foot wound, GERD, hypertension, and Charcot foot. Vascular surgery was initially consulted and patient has had the wound on the bottom of her foot since January. She follows with [facility] and sees a coding compliance manager for wound care. States she started not feeling well a couple days prior to admission with fever, body aches and nausea. Also started to notice her leg getting red. Vascular surgery initially saw patient 11/05/2023 in the emergency department where Dr. Rosado had done a wound exploration with no noted purulent drainage just sero sanguineous drainage and open cavity with deep tissue cultures. MRI was requested to evaluate for abscess which reported no abscess however did state osteomyelitis. The wound clinic was consulted and patient has been getting local wound care. Vascular surgery signed off on this past Saturday and patient was and pending discharge on Saturday however apparently there was some financial issues. During her dressing change this morning nursing had noted a large amount of purulent drainage and infectious disease and primary medical team noted. Vascular surgery was reconsulted for I&D. She currently denies any fevers or chills. No pain in her leg or foot. She has been afebrile. She has a PICC line in place. Review of Systems A 14 point review systems was completed all pertinent positives and negatives as stated in the HPI. Past Medical History Past Medical History: Diabetes Mellitus, GERD/Reflux, Hypertension Additional Past Medical History / Comment(s): Anemia, bleeding ulcer History of Any Multi-Drug Resistant Organisms: None Reported Past Surgical History: Appendectomy, Section, Cholecystectomy, Hysterectomy Additional Past Surgical History / Comment(s): right foot- greater toe amputation- 01/2023 Past Psychological History: Anxiety, Depression Past Alcohol Use History: None Reported Past Drug Use History: None Reported Medications and Allergies Home Medications Medication Instructions Recorded Confirmed Type Escitalopram [Lexapro] 20 mg PO DAILY 05/26/15 09/09/24 History Esomeprazole Magnesium [NexIUM] 20 mg PO DAILY 07/20/14 11/04/23 History QUEtiapine FUMARATE 100 mg PO HS 07/20/14 11/04/23 History clonazePAM [KlonoPIN] 0.5 mg PO BID 07/20/14 11/04/23 History Atorvastatin [Lipitor] 40 mg PO HS 11/04/23 11/04/23 History Cetirizine HCl [Zyrtec] 10 mg PO DAILY 11/04/23 11/04/23 History Empagliflozin [Jardiance] 25 mg PO DAILY 11/04/23 11/04/23 History Fluticasone [place] [Flonase 1 spray EA NOSTRIL DAILY PRN 11/04/23 11/04/23 History Nas[place]] glipiZIDE [Glucotrol] 10 mg PO BID 11/04/23 11/04/23 History lisinopriL [Zestril] 2.5 mg PO DAILY 11/04/23 11/04/23 History metFORMIN HCL [Glucophage] 1,000 mg PO BID 11/04/23 11/04/23 History Ampicillin-Sulbactam [Unasyn 3 gm 3 gm IVPB Q6HR #120 each 11/08/23 Rx vial] Allergies Allergy/AdvReac Type Severity Reaction Status Date / Time prochlorperazine edisylate AdvReac Anaphylaxis Verified 11/04/23 19:49 [From Compazine] prochlorperazine maleate AdvReac Anaphylaxis Verified 11/04/23 19:49 [From Compazine] Surgical - Exam Vital Signs Temp Pulse Resp BP Pulse Ox 98.1 F 95 20 96/46 96 11/04/23 19:15 11/04/23 19:15 11/04/23 19:15 11/04/23 19:15 11/04/23 19:15 General appearance: The patient is alert, oriented, appears in no acute distress. HET: Head is normocephalic and atraumatic. Pupils are equal and reactive. Neck: Supple. Heart: Regular. Lungs: Equal expansion, normal respiratory effort. Abdomen: Soft, nontender, nondistended. Extremities: Right Charcot foot, dorsal aspect of foot with erythema and swelling to medial aspect, wound to the dorsal aspect of the forefoot with purulent drainage. Palpable DP pulse Neurological: No focal deficits. Alert and oriented. Results - Labs 11/08/23 03:34 11/08/23 03:34 Abnormal Lab Results - Last 24 Hours (Table) 11/10/23 11/11/23 Range/Units 20:31 11:24 POC Glucose (mg/dL) 148 H 42 L* (70-110) mg/dL - Imaging Comments: MRI of the foot that reports no evidence for abscess. Sinusitis changes throughout the foot abnormal bone marrow signal suggesting osteomyelitis. High T2 signal fluid around flexor hallucis and flexor digitorum longus suggestive of tenosynovitis, alternatively some of this could be postsurgical changes given amputation. Attention follow-up imaging after control of infection. Lower extremity CT reports streaky edema of the right lower extremity with organizing fluid collection along the medial foot surrounding multiple osseous structures. This is partially out of the [id number]. Lies in the [id number] is compatible with abscess with cellulitis change. No discrete osseous erosion visualized at this time further workup with MRI recommended. Assessment and Plan Assessment: 1. Infected chronic diabetic right foot wound with purulent drainage 2. Cellulitis 3. Charcot foot 4. History of previous right foot injury status post right great toe amputation 5. Diabetes mellitus 6. Peripheral neuropathy Plan: 1. Continue symptomatic and supportive care 2. Antibiotics per recommendations from infectious disease 3. N.p.o. after midnight 4. Hold Lovenox 5. Will plan for incision and drainage tomorrow, possible below the knee amputa tion if infection is up into the ankle Thank you for this consultation, we will continue to follow. The impression and plan of care has been dictated as directed. I performed a history and examination of this patient, discussed the same with the dictator. I agree with the dictator's note ,documented as a scribe. Any additional findings or plans will be noted.
[2023-11-11] MEDS ORDERED: LIDOCAINE 1% (10MG/ML) FOR IV START INTRADERMA PRN (14:03)
[2023-11-11] MEDS: DEXAMETHASONE SOD PHOSPHATE 4 MG/ML 1 ML VIAL IV ONE (15:13)
[2023-11-11 15:47] VITALS: BMI 36.5
[2023-11-11 16:57] LABS: Glucose,Whole Blood 135 mg/dL (70-110)
--- NOTE | 2023-11-11 20:22 | P.PN ---
Progress Note - Text Progress Note Date: 11/11/23 Patient is a 63-year-old female was seen at [facility] because of generalized weakness fever, not feeling well and found to have leukocytosis found to have infection of the left foot circumferential plantar wound. Patient's wound has a purulent base. Patient also hyperglycemic. 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 Patient also complaining of mild epigastric abdominal discomfort. November 06, 2023: Sitting up in bed. Pain well-controlled. Eating well. Had a bowel movement. Patient has anemia. She states about 4 years ago patient had a EGD colonoscopy that was negative. Deep tissue cultures obtained by vascular. MRI of the foot has been ordered by the time. Patient on IV Unasyn and IV vancomycin. Patient is and niece at the bedside discussed. November 06: Did sit up in a chair earlier. Pain controlled. MRI done today showed no evidence of abscess. Abnormal bone marrow suggesting osteomyelitis. Also suggestions of tenosynovitis. Some of these changes could be postsurgical from previous amputation. Getting IV iron for iron deficiency. GI Dr. Li Snyder consulted. Vancomycin has been taken off. Cultures are growing Streptococcus agalactiae and Staph aureus, MSSA November 07: Up in a chair. Comfortable. IV Unasyn. PICC line ordered. Not for any surgical intervention. Discussed with ID. Discussed with manager case management. Looking for ECF IV antibiotics. Authorization submitted. Getting IV iron. Seen by Dr. Li Snyder from GI. Outpatient follow-up. November 08: Patient is due to go to the ECF today. Authorization was in place. She owes over $300. She cannot afford the same and her sister is out of town who could not bring the money. Hence we will await social media community manager to sort this out. Otherwise patient doing well tolerating diet getting antibiotics. November 09: Patient pending to pay dollars dollars 320.19. Without this F cannot be able to accept the patient. r. egg worker to look into the same. Look into indigent fund. Otherwise patient doing stable. November 10: Patient right foot rather swollen today. Difficult amount of pus came out from the plantar surface. I texted Dr. Rosado who is on for the vascular team about the same about taking patient for I&D as soon as possible. Discharge has been held for this purpose. Social work looking into payment so that patient go to rehab. Active Medications Acetaminophen (Acetaminophen Tab 325 Mg Tab) 650 mg PO Q6HR PRN PRN Reason: Mild Pain or Fever > 100.5 Last Admin: 11/11/23 09:02 Dose: 650 mg Al Hydroxide/Mg Hydroxide (Mag Hydrox/Al Hydrox/Simeth 30 Ml Cup) 15 ml PO Q6HR PRN PRN Reason: Indigestion Atorvastatin Calcium (Atorvastatin 40 Mg Tab) 40 mg PO HS [facility] Last Admin: 11/10/23 20:14 Dose: 40 mg Calcium Carbonate/Glycine (Calcium Carbonate 500 Mg Chewable) 1,000 mg PO Q4HR PRN PRN Reason: Dyspepsia Clonazepam (Clonazepam 0.5 Mg Tab) 0.5 mg PO BID PRN PRN Reason: Anxiety Last Admin: 11/10/23 20:14 Dose: 0.5 mg Dapagliflozin (Dapagliflozin Propanediol 10 Mg Tablet) 10 mg PO DAILY [facility] Last Admin: 11/11/23 09:02 Dose: 10 mg Escitalopram Oxalate (Escitalopram 20 Mg Tab) 20 mg PO DAILY [facility] Last Admin: 11/11/23 09:02 Dose: 20 mg Famotidine (Famotidine 20 Mg Tab) 20 mg PO HS [facility] Last Admin: 11/10/23 20:14 Dose: 20 mg Ferrous Sulfate (Ferrous Sulfate 325 Mg Tab) 325 mg PO W/LUNCH [facility] Last Admin: 11/11/23 12:29 Dose: 325 mg Glipizide (Glipizide 10 Mg Tab) 10 mg PO BID [facility] Last Admin: 11/11/23 09:02 Dose: 10 mg Hydromorphone HCl (Hydromorphone 0.5 Mg/0.5 Ml Syringe) 0.5 mg IVP Q5M PRN PRN Reason: Phase 1 or 2 - Pain Control Stop: 11/12/23 23:00 Sodium Chloride (Saline 0.9%) 1,000 mls @ 75 mls/hr IV .[id number] [facility] Last Admin: 11/11/23 17:40 Dose: 75 mls/hr Ampicillin Sodium/Sulbactam (Sodium 3 gm/ Sodium Chloride) 100 mls @ 200 mls/hr IVPB Q6HR [facility]; Protocol Last Admin: 11/11/23 17:44 Dose: 200 mls/hr Lactated Ringer's (Lactated Ringers) 1,000 mls @ 20 mls/hr IV .Q24H [facility] Insulin Aspart (Insulin Aspart (Novolog) 100 Unit/Ml Vial) 0 unit SQ AC-TID [facility]; Protocol Last Admin: 11/11/23 17:26 Dose: Not Given Lidocaine HCl (Lidocaine 1% (10mg/Ml) For Iv Start) 0.1 ml INTRADERMA PER PROTOCOL PRN PRN Reason: IV Start Lisinopril (Lisinopril 2.5 Mg Tab) 2.5 mg PO DAILY [facility] Last Admin: 11/11/23 09:02 Dose: 2.5 mg Loratadine (Loratadine 10 Mg Tab) 10 mg PO DAILY [facility] Last Admin: 11/11/23 09:02 Dose: 10 mg Metformin HCl (Metformin 500 Mg Tab) 1,000 mg PO BID-W/MEALS [facility] Last Admin: 11/11/23 17:39 Dose: 1,000 mg Midazolam HCl (Midazolam 2 Mg/2 Ml Vial) 2 mg IV ONCE PRN PRN Reason: Pre-Op Anxiety Stop: 11/12/23 23:00 Naloxone HCl (Naloxone 0.4 Mg/Ml 1 Ml Vial) 0.2 mg IV Q2M PRN PRN Reason: Opioid Reversal Ondansetron HCl (Ondansetron 4 Mg/2 Ml Vial) 4 mg IVP Q8HR PRN PRN Reason: Nausea And Vomiting Last Admin: 11/06/23 17:17 Dose: 4 mg Pantoprazole Sodium (Pantoprazole 40 Mg Tablet) 40 mg PO DAILY [facility] Last Admin: 11/11/23 09:02 Dose: 40 mg Tramadol HCl (Tramadol 50 Mg Tab) 50 mg PO Q6H PRN PRN Reason: Moderate Pain (Scale 4 to 6) Last Admin: 11/05/23 20:51 Dose: 50 mg On examination: VITAL SIGNS: 98.9, 74, 16, 128 x 64, 97% room air GENERAL APPEARANCE: Comfortable, up in recliner HEENT: Normal external appearance of nose and ear. Oral cavity normal EYES: Pupils equal. Conjunctiva normal. NECK: JVD not raised. Mass not palpable. RESPIRATORY: Respiratory effort normal. Lungs clear to auscultation. CARDIOVASCULAR: First and second sounds normal. No edema. ABDOMEN: Soft. Liver and spleen not palpable. No tenderness. No mass palpable. PSYCHIATRY: Alert and oriented x3. Mood and affect normal. EXTREMITY: Right foot i swollen, plantar surface putting out thick pus from a opening INVESTIGATIONS, reviewed in the clinical context: November 07: White count 10.3 hemoglobin 9.3 platelets 435 potassium 4.8 creatinine 0.82. Procalcitonin 0.73 Right foot MRI [November 06, with and without contrast] plantar surface without evidence for abscess. Sinusitis changes throughout the foot. Abnormal bone marrow signal suggesting osteomyelitis. Immediately next to the wound. Fluid signal along flexor hallucis longus and flexor digitorum longus suggestive of tenosynovitis. Some of it also could be postsurgical changes given amputation. November 05: White: 0.1 hemoglobin 9 platelets 326 sodium 140 potassium 4.4 BUN 20 creatinine 1.01 Iron 16 TIBC 273% saturation 5.8 transferrin [address] [November 03] streaky edema of the right lower extremity with organizing fluid collection along the medial foot surrounding multiple osseous structures. With abscess/cellulitis. Assessment and plan: -Sepsis secondary to right foot cellulitis with osteomyelitis-acute, wound cultures grew Streptococcus agalactiae, Staphylococcus aureus-MSSA IV Unasyn. Seen by vascular no need for any surgical intervention PICC line for IV antibiotics -Acute right foot abscess, foot rather swollen today. Was putting out lSign ificant amount of pus: New diagnosis Dr. Rosado informed -Acute renal failure secondary to sepsis.: Improved Admission creatinine 1.49. -Mild hypovolemic hyponatremia: Corrected IV fluids -Type 2 diabetes mellitus uncontrolled with hyperglycemia. Follow Accu-Cheks. Metformin. -Diabetic peripheral neuropathy -Hyperlipidemia Lipitor -Gastroesophageal reflux disease Protonix -Essential hypertension Lisinopril -Iron deficiency anemia GI Dr. Snyder saw the patient. For outpatient follow-up IV Ferrlecit x 3 doses. Oral ferrous sulfate -No code Discharge held. Antibiotics to continue in form of IV Unasyn. Await I&D of the right foot wound. Past Medical History Past Medical History: Diabetes Mellitus, GERD/Reflux, Hypertension Additional Past Medical History / Comment(s): Anemia, bleeding ulcer History of Any Multi-Drug Resistant Organisms: None Reported Past Surgical History: Appendectomy, Section, Cholecystectomy, Hysterectomy Additional Past Surgical History / Comment(s): right foot- greater toe amputation- 01/2023 Past Psychological History: Anxiety, Depression Past Alcohol Use History: None Reported Past Drug Use History: None Reported
[2023-11-11] MEDS: LACTATED RINGERS 1,000 ML IV SCH (21:37)
[2023-11-11 21:48] LABS: Glucose,Whole Blood 248 mg/dL (70-110)
[2023-11-12 05:32] LABS: Glucose,Whole Blood 126 mg/dL (70-110)
[2023-11-12 05:47] LABS: HCT 28.2 % (34.0-46.0); HGB 8.8 gm/dL (11.4-16.0); Hypochromasia Slight; MCH 28.3 pg (25.0-35.0); MCHC 31.3 g/dL (31.0-37.0); MCV 90.2 fL (80.0-100.0); Platelet Count 620 k/uL (150-450); RBC 3.13 m/uL (3.80-5.40); RDW 15.3 % (11.5-15.5); WBC 11.5 k/uL (3.8-10.6)
[2023-11-12 06:00] LABS: African American GFR (CKD) >90 (>60 ml/min/1.73 sqM); Anion Gap 5 mmol/L; Blood Urea Nitrogen 10 mg/dL (7-17); Calcium 8.4 mg/dL (8.4-10.2); Carbon Dioxide 25 mmol/L (22-30); Chloride 110 mmol/L (98-107); Glucose 126 mg/dL (74-99); Non-African American GFR(CKD) 88 (>60 ml/min/1.73 sqM); Potassium 4.4 mmol/L (3.5-5.1); Sodium 140 mmol/L (137-145)
[2023-11-12 06:50] LABS: Eosinophils # (M) 0.12 k/uL (0-0.7); Lymphocytes # (M) 2.19 k/uL (1.0-4.8); Metamyelocytes # (M) 0.12 k/uL (0); Metamyelocytes % 1 %; Monocytes # (M) 0.46 k/uL (0-1.0); Myelocytes # (M) 0.35 k/uL (0); Myelocytes % 3 %; Neutrophils # (M) 8.51 k/uL (1.3-7.7); Neutrophils % (M) 74 %; Nucleated Red Blood Cells 0 /100 WBC (0-0); Total Cells Counted 200
[2023-11-12 06:51] LABS: RBC Morphology Normal
[2023-11-12] MEDS ORDERED: HYDROmorphone 0.5 MG/0.5 ML SYRINGE IVP PRN (07:00)
[2023-11-12] MEDS: IV FLUID CONTINUATION 1,000 ML IV ONE (08:09)
[2023-11-12] MEDS: DEXTROSE 50% SYRINGE 50 ML IVP STA (08:17)
[2023-11-12] MEDS: MIDAZOLAM 2 MG/2 ML VIAL IV PRN (08:23)
[2023-11-12 08:24] LABS: Glucose,Whole Blood 68 mg/dL (70-110)
[2023-11-12 08:24] LABS: Glucose,Whole Blood 164 mg/dL (70-110)
--- NOTE | 2023-11-12 08:29 | P.PN ---
Progress Note - Text Progress Note Date: 11/12/23 Discussion had with patient. Is willing to be full code during surgery and return to no code after surgery in recovery. She seemingly understands the implications of this and is okay with these details.
[2023-11-12] MEDS ORDERED: PROPOFOL 10 MG/ML 20 ML VIAL IV ONE (08:32)
[2023-11-12] MEDS ORDERED: MIDAZOLAM 2 MG/2 ML VIAL ONE (08:32)
[2023-11-12] MEDS ORDERED: KETAMINE HCL IN 0.9 % NACL 50 MG/5 ML SYRINGE ONE (08:32)
[2023-11-12] MEDS ORDERED: fentaNYL (PF) 50 MCG/ML 2 ML AMP ONE (08:32)
[2023-11-12] MEDS: LIDOCAINE 1% INJ 10MG/ML (20 ML MDV) SQ ONE (08:36)
[2023-11-12 09:23] LABS: Glucose,Whole Blood 113 mg/dL (70-110)
--- NOTE | 2023-11-12 11:14 | P.OP ---
Date of Procedure: 11/12/23 Description of Procedure: Preoperative diagnosis: Right foot infection, Charcot foot, diabetes Postoperative diagnosis: Same Procedure: Incision and drainage of right foot abscess Surgeon: Zraa Brunson D.O. EBL: 10 cc IV fluids: See records Urine output: Not measured Drains: None Complications: None immediately apparent Condition: Stable to recovery Operative indication and findings: Patient is a 63-year-old female with diabetes and Charcot foot with a plantar wound that has had purulent drainage therefore she is here today for incision and drainage risks and benefits were discussed. She seemingly understood and was willing to proceed. Procedure in detail: Patient was brought to the surgical suite and placed in supine position. The right lower extremity was prepped and draped in usual sterile fashion. A preprocedural timeout was performed, all parties were in agreement. The plantar portion of the foot was probed and at the portion where the fluctuance was noted at the dorsum of the foot an incision was made. Blunt dissection was performed to allow connection to these areas. Blunt dissection was then performed to investigate any loculations or areas of purulent drainage. There was a portion in the direction of the hindfoot that did express purulent drainage therefore a counterincision was made here as well. The areas were then copiously irrigated with Dakin solution and Dakin's wet to dry dressings were placed. Patient was awakened from anesthesia and transported recovery in stable condition having tolerated the procedure well.
[2023-11-12 11:35] LABS: Glucose,Whole Blood 110 mg/dL (70-110)
--- NOTE | 2023-11-12 13:14 | P.PN ---
Subjective Progress Note Date: 11/12/23 Principal diagnosis: Reason for follow-up is right diabetic foot infection Patient is a 63-year-old female with a past medical history significant diabetes mellitus reflux hypertension did have a recent right big toe diabetic foot infection requiring amputation at [place] patient presenting to the hospital concerning for nausea not feeling well and did have elevated blood sugar and also noticed to have right foot abscess and cellulitis.Patient is status post incision and drainage of the right foot abscess completed by vascular surgery on 11/12/2023 On today's evaluation that is 11/12/2023, Patient is afebrile this morning patient denies having any chest pain shortness of breath or cough, the patient is breathing comfortably on room air, patient denies any abdominal pain no diarrhea no nausea no vomiting, patient denies any worsening pain to the right foot. Patient did have a white count of 11.5 creatinine 0.73 OR cultures obtained Objective - Vital Signs Vital signs: Vital Signs Temp 97.8 F 11/12/23 10:28 Pulse 65 11/12/23 10:28 Resp 16 11/12/23 10:28 BP 132/88 11/12/23 10:28 Pulse Ox 96 11/12/23 10:28 FiO2 21 11/12/23 09:08 Intake & Output 11/11/23 11/12/23 11/12/23 18:59 06:59 18:59 Intake Total 240 400 Output Total 10 Balance 240 390 Weight 82 kg 83.5 kg Intake: IV 400 Oral 240 Output: Estimated Blood Loss 10 Other: Voiding Method Bedside Commode Bedside Commode - Exam GENERAL DESCRIPTION: Middle-age female up in the chair in no distress RESPIRATORY SYSTEM: Unlabored breathing , decreased breath sounds at bases HEART: S1 S2 regular rate and rhythm , ABDOMEN: Soft , no tenderness EXTREMITIES: Right foot plantar wound currently dressed - Labs CBC & Chem 7: 11/12/23 04:44 11/12/23 04:44 Labs: Abnormal Lab Results - Last 24 Hours (Table) 11/11/23 11/11/23 11/12/23 Range/Units 16:55 21:46 04:44 WBC 11.5 H (3.8-10.6) k/uL RBC 3.13 L (3.80-5.40) m/uL Hgb 8.8 L (11.4-16.0) gm/dL Hct 28.2 L (34.0-46.0) % Plt Count 620 H (150-450) k/uL Neutrophils # (Manual) 8.51 H (1.3-7.7) k/uL Metamyelocytes # (Man) 0.12 H (0) k/uL Myelocytes # (Manual) 0.35 H (0) k/uL Chloride (98-107) mmol/L Glucose (74-99) mg/dL POC Glucose (mg/dL) 135 H 248 H (70-110) mg/dL 11/12/23 11/12/23 11/12/23 Range/Units 04:44 05:31 08:10 WBC (3.8-10.6) k/uL RBC (3.80-5.40) m/uL Hgb (11.4-16.0) gm/dL Hct (34.0-46.0) % Plt Count (150-450) k/uL Neutrophils # (Manual) (1.3-7.7) k/uL Metamyelocytes # (Man) (0) k/uL Myelocytes # (Manual) (0) k/uL Chloride 110 H (98-107) mmol/L Glucose 126 H (74-99) mg/dL POC Glucose (mg/dL) 126 H 68 L (70-110) mg/dL 11/12/23 11/12/23 Range/Units 08:23 09:21 WBC (3.8-10.6) k/uL RBC (3.80-5.40) m/uL Hgb (11.4-16.0) gm/dL Hct (34.0-46.0) % Plt Count (150-450) k/uL Neutrophils # (Manual) (1.3-7.7) k/uL Metamyelocytes # (Man) (0) k/uL Myelocytes # (Manual) (0) k/uL Chloride (98-107) mmol/L Glucose (74-99) mg/dL POC Glucose (mg/dL) 164 H 113 H (70-110) mg/dL Assessment and Plan (1) Foot abscess, right Current Visit: Yes Status: Acute Code(s): L02.611 - CUTANEOUS ABSCESS OF RIGHT FOOT SNOMED Code(s): 04346954524166564 (2) Leukocytosis Current Visit: Yes Status: Acute Code(s): D72.829 - ELEVATED WHITE BLOOD CELL COUNT, UNSPECIFIED SNOMED Code(s): 306877051 Plan: 1patient presented to hospital with a right diabetic foot infection in this patient who recently did have right big toe amputation now presenting with the likely infected callus on the plantar aspect of the right foot with second infection and abscess formation as there was evidence of purulent drainage will need to cover for the polymicrobial antonio associated with diabetic foot infection. 2patient did have an MRI did not mention any abscess concern for possible osteomyelitis vascular surgeon recommending no debridement or culture 3local cultures has been finalized with strep MSSA and anaerobes, the patient is status post surgical drainage of the right foot abscess with the OR cultures currently pending we will continue Unasyn till the OR cultures are finalized at the bedside questions answered Dictation was produced using [employer] dictation software. please excuse any grammatical, word or spelling errors. Time with Patient: Less than 30
[2023-11-12 16:10] LABS: Glucose,Whole Blood 155 mg/dL (70-110)
[2023-11-12 22:16] LABS: Glucose,Whole Blood 148 mg/dL (70-110)
--- NOTE | 2023-11-12 22:16 | P.PN ---
Progress Note - Text Progress Note Date: 11/12/23 Patient is a 63-year-old female was seen at [facility] because of generalized weakness fever, not feeling well and found to have leukocytosis found to have infection of the left foot circumferential plantar wound. Patient's wound has a purulent base. Patient also hyperglycemic. 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 Patient also complaining of mild epigastric abdominal discomfort. November 06, 2023: Sitting up in bed. Pain well-controlled. Eating well. Had a bowel movement. Patient has anemia. She states about 4 years ago patient had a EGD colonoscopy that was negative. Deep tissue cultures obtained by vascular. MRI of the foot has been ordered by the time. Patient on IV Unasyn and IV vancomycin. Patient is and niece at the bedside discussed. November 06: Did sit up in a chair earlier. Pain controlled. MRI done today showed no evidence of abscess. Abnormal bone marrow suggesting osteomyelitis. Also suggestions of tenosynovitis. Some of these changes could be postsurgical from previous amputation. Getting IV iron for iron deficiency. GI Dr. Li Snyder consulted. Vancomycin has been taken off. Cultures are growing Streptococcus agalactiae and Staph aureus, MSSA November 07: Up in a chair. Comfortable. IV Unasyn. PICC line ordered. Not for any surgical intervention. Discussed with ID. Discussed with manager case. Looking for ECF IV antibiotics. Authorization submitted. Getting IV iron. Seen by Dr. Li Snyder from GI. Outpatient follow-up. November 08: Patient is due to go to the ECF today. Authorization was in place. She owes over $300. She cannot afford the same and her sister is out of town who could not bring the money. Hence we will await marriage and family social worker to sort this out. Otherwise patient doing well tolerating diet getting antibiotics. November 09: Patient pending to pay dollars dollars 320.19. Without this F cannot be able to accept the patient. r. linen room worker to look into the same. Look into indigent fund. Otherwise patient doing stable. November 10: Patient right foot rather swollen today. Difficult amount of pus came out from the plantar surface. I texted Dr. Rosado who is on for the vascular team about the same about taking patient for I&D as soon as possible. Discharge has been held for this purpose. Social work looking into payment so that patient go to rehab. November 11: Patient was seen this afternoon. Underwent surgery on the right foot and it was drained. Dressing in place. Per ID to wait for repeat cultures finalization. Active Medications Acetaminophen (Acetaminophen Tab 325 Mg Tab) 650 mg PO Q6HR PRN PRN Reason: Mild Pain or Fever > 100.5 Last Admin: 11/11/23 09:02 Dose: 650 mg Al Hydroxide/Mg Hydroxide (Mag Hydrox/Al Hydrox/Simeth 30 Ml Cup) 15 ml PO Q6HR PRN PRN Reason: Indigestion Atorvastatin Calcium (Atorvastatin 40 Mg Tab) 40 mg PO HS [facility] Last Admin: 11/12/23 21:49 Dose: 40 mg Calcium Carbonate/Glycine (Calcium Carbonate 500 Mg Chewable) 1,000 mg PO Q4HR PRN PRN Reason: Dyspepsia Clonazepam (Clonazepam 0.5 Mg Tab) 0.5 mg PO BID PRN PRN Reason: Anxiety Last Admin: 11/12/23 21:50 Dose: 0.5 mg Dapagliflozin (Dapagliflozin Propanediol 10 Mg Tablet) 10 mg PO DAILY [facility] Last Admin: 11/12/23 10:18 Dose: 10 mg Escitalopram Oxalate (Escitalopram 20 Mg Tab) 20 mg PO DAILY [facility] Last Admin: 11/12/23 10:18 Dose: 20 mg Famotidine (Famotidine 20 Mg Tab) 20 mg PO HS [facility] Last Admin: 11/12/23 21:50 Dose: 20 mg Ferrous Sulfate (Ferrous Sulfate 325 Mg Tab) 325 mg PO W/LUNCH [facility] Last Admin: 11/12/23 12:53 Dose: 325 mg Glipizide (Glipizide 10 Mg Tab) 10 mg PO BID [facility] Last Admin: 11/12/23 21:50 Dose: 10 mg Hydromorphone HCl (Hydromorphone 0.5 Mg/0.5 Ml Syringe) 0.5 mg IVP Q5M PRN PRN Reason: Phase 1 or 2 - Pain Control Stop: 11/12/23 23:00 Sodium Chloride (Saline 0.9%) 1,000 mls @ 75 mls/hr IV .[id number] [facility] Last Admin: 11/12/23 12:54 Dose: 75 mls/hr Ampicillin Sodium/Sulbactam (Sodium 3 gm/ Sodium Chloride) 100 mls @ 200 mls/hr IVPB Q6HR [facility]; Protocol Last Admin: 11/12/23 17:25 Dose: 200 mls/hr Lactated Ringer's (Lactated Ringers) 1,000 mls @ 20 mls/hr IV .Q24H [facility] Last Admin: 11/12/23 15:11 Dose: Not Given Insulin Aspart (Insulin Aspart (Novolog) 100 Unit/Ml Vial) 0 unit SQ AC-TID [facility]; Protocol Last Admin: 11/12/23 16:32 Dose: Not Given Lidocaine HCl (Lidocaine 1% (10mg/Ml) For Iv Start) 0.1 ml INTRADERMA PER PRO TOCOL PRN PRN Reason: IV Start Lisinopril (Lisinopril 2.5 Mg Tab) 2.5 mg PO DAILY [facility] Last Admin: 11/12/23 10:17 Dose: 2.5 mg Loratadine (Loratadine 10 Mg Tab) 10 mg PO DAILY [facility] Last Admin: 11/12/23 10:17 Dose: 10 mg Metformin HCl (Metformin 500 Mg Tab) 1,000 mg PO BID-W/MEALS [facility] Last Admin: 11/12/23 16:10 Dose: 1,000 mg Naloxone HCl (Naloxone 0.4 Mg/Ml 1 Ml Vial) 0.2 mg IV Q2M PRN PRN Reason: Opioid Reversal Ondansetron HCl (Ondansetron 4 Mg/2 Ml Vial) 4 mg IVP Q8HR PRN PRN Reason: Nausea And Vomiting Last Admin: 11/12/23 08:24 Dose: 4 mg Pantoprazole Sodium (Pantoprazole 40 Mg Tablet) 40 mg PO DAILY [facility] Last Admin: 11/12/23 10:18 Dose: 40 mg Tramadol HCl (Tramadol 50 Mg Tab) 50 mg PO Q6H PRN PRN Reason: Moderate Pain (Scale 4 to 6) Last Admin: 11/12/23 16:10 Dose: 50 mg On examination: VITAL SIGNS: 97.8, 65, 16, 132/88, 96% room air GENERAL APPEARANCE: Up in a large chair HEENT: Normal external appearance of nose and ear. Oral cavity normal EYES: Pupils equal. Conjunctiva normal. NECK: JVD not raised. Mass not palpable. RESPIRATORY: Respiratory effort normal. Lungs clear to auscultation. CARDIOVASCULAR: First and second sounds normal. No edema. ABDOMEN: Soft. Liver and spleen not palpable. No tenderness. No mass palpable. PSYCHIATRY: Alert and oriented x3. Mood and affect normal. EXTREMITY: Right foot in a dressing INVESTIGATIONS, reviewed in the clinical context: November 11: White count 9.5 globin 8.8 platelets 620 potassium 4.4 creatinine 0.73 November 07: White count 10.3 hemoglobin 9.3 platelets 435 potassium 4.8 creatinine 0.82. Procalcitonin 0.73 Right foot MRI [November 06, with and without contrast] plantar surface without evidence for abscess. Sinusitis changes throughout the foot. Abnormal bone marrow signal suggesting osteomyelitis. Immediately next to the wound. Fluid signal along flexor hallucis longus and flexor digitorum longus suggestive of tenosynovitis. Some of it also could be postsurgical changes given amputation. November 05: White: 0.1 hemoglobin 9 platelets 326 sodium 140 potassium 4.4 BUN 20 creatinine 1.01 Iron 16 TIBC 273% saturation 5.8 transferrin [address] [November 03] streaky edema of the right lower extremity with organizing fluid collection along the medial foot surrounding multiple osseous structures. With abscess/cellulitis. Assessment and plan: -Sepsis secondary to right foot cellulitis with osteomyelitis-acute, wound cultures grew Streptococcus agalactiae, Staphylococcus aureus-MSSA IV Unasyn. -Acute right foot abscess, foot rather swollen today. Was putting out lSignificant amount of pus: Right foot abscess drained by Dr. Brunson this morning. Dressing in place ID waiting for repeat OR cultures to be finalized. -Acute renal failure secondary to sepsis.: Improved Admission creatinine 1.49. -Mild hypovolemic hyponatremia: Corrected IV fluids -Type 2 diabetes mellitus uncontrolled with hyperglycemia. Follow Accu-Cheks. Metformin. -Diabetic peripheral neuropathy -Hyperlipidemia Lipitor -Gastroesophageal reflux disease Protonix -Essential hypertension Lisinopril -Iron deficiency anemia GI Dr. Snyder saw the patient. For outpatient follow-up IV Ferrlecit x 3 doses. Oral ferrous sulfate -No code Discussed with patient. Await cultures from the OR to be finalized. Past Medical History Past Medical History: Diabetes Mellitus, GERD/Reflux, Hypertension Additional Past Medical History / Comment(s): Anemia, bleeding ulcer History of Any Multi-Drug Resistant Organisms: None Reported Past Surgical History: Appendectomy, Section, Cholecystectomy, Hysterectomy Additional Past Surgical History / Comment(s): right foot- greater toe amputation- 01/2023 Past Psychological History: Anxiety, Depression Past Alcohol Use History: None Reported Past Drug Use History: None Reported
[2023-11-13 06:46] LABS: Glucose,Whole Blood 67 mg/dL (70-110)
[2023-11-13 08:46] LABS: Glucose,Whole Blood 152 mg/dL (70-110)
--- NOTE | 2023-11-13 10:14 | P.CONS ---
History of Present Illness - Reason for Consult Consult date: 11/13/23 wound care - History of Present Illness This is a 63-year-old patient being seen in the ER for nonhealing ulceration to the right plantar foot. Patient had edema erythema and purulent drainage noted to the site. Patient is status post right great toe amputation from 2022. Patient stated that her foot became painful and red over the last few weeks. Patient has history of diabetes GERD and hypertension. Ulceration measures approximately 1 x 1 x 3 cm with slough and nonviable tissue present serosanguineous drainage present at this time. Undermining is noted. 11/13/2023: Re-evaluated, Patient underwent I& D yesterday with large amount of purulent drainage. Ulceration was packed with Kerlix. Patient has 3 open ulc erations to the plantar ulcerations communicate with each other. The medial ulceration able to palpate bone. Review Of Systems: Constitutional: No fever, no chills, no night sweats. No weight change. No weakness, fatigue or lethargy. No daytime sleepiness. Integumentary:reports wounds, no lesions. No rash or pruritus. No unusual bruising. No change in hair or nails. Physical exam: General Appearance: Alert, cooperative, no distress, appears stated age. Skin: See HPI all other Skin color, texture, tugor normal, no rashes or lesions. Neurologic: Alert oriented x3 Assessment: 1. Nonhealing ulceration with muscle involvement without necrosis - L97.515 2.. Diabetic foot ulcer - E11.621 Plan: 1. . Irrigate with half peroxide and normal saline.Apply idoform gauze. Dry gauze ABD and wrap with rolled gauze. Change daily. Family request that patient comes to the wound care center for advanced wound care. We happy to see her upon discharge. Thank you for the consultation any questions please contact the wound care center DNP note has been reviewed and discussed with Dr. Villegas and the impression and plan of care has been directed as dictated. Past Medical History Past Medical History: Diabetes Mellitus, GERD/Reflux, Hypertension Additional Past Medical History / Comment(s): Anemia, bleeding ulcer History of Any Multi-Drug Resistant Organisms: None Reported Past Surgical History: Appendectomy, Section, Cholecystectomy, Hysterectomy Additional Past Surgical History / Comment(s): right foot- greater toe a mputation- 01/2023 Past Psychological History: Anxiety, Depression Past Alcohol Use History: None Reported Past Drug Use History: None Reported Medications and Allergies Home Medications Medication Instructions Recorded Confirmed Type Escitalopram [Lexapro] 20 mg PO DAILY 07/20/14 11/04/23 History Esomeprazole Magnesium [NexIUM] 20 mg PO DAILY 07/20/14 11/04/23 History QUEtiapine FUMARATE 100 mg PO HS 07/20/14 11/04/23 History clonazePAM [KlonoPIN] 0.5 mg PO BID 07/20/14 11/04/23 History Atorvastatin [Lipitor] 40 mg PO HS 11/04/23 11/04/23 History Cetirizine HCl [Zyrtec] 10 mg PO DAILY 11/04/23 11/04/23 History Empagliflozin [Jardiance] 25 mg PO DAILY 11/04/23 11/04/23 History Fluticasone Nasal Epes [Flonase 1 spray EA NOSTRIL DAILY PRN 11/04/23 11/04/23 History Nasal Epes] glipiZIDE [Glucotrol] 10 mg PO BID 11/04/23 11/04/23 History lisinopriL [Zestril] 2.5 mg PO DAILY 11/04/23 11/04/23 History metFORMIN HCL [Glucophage] 1,000 mg PO BID 11/04/23 11/04/23 History Ampicillin-Sulbactam [Unasyn 3 gm 3 gm IVPB Q6HR #120 each 11/08/23 Rx vial] Allergies Allergy/AdvReac Type Severity Reaction Status Date / Time prochlorperazine edisylate AdvReac Anaphylaxis Verified 11/04/23 19:49 [From Compazine] prochlorperazine maleate AdvReac Anaphylaxis Verified 11/04/23 19:49 [From Compazine] Physical Exam Vitals: Vital Signs Temp Pulse Resp BP Pulse Ox 11/13/23 08:22 96 11/13/23 07:05 98.2 F 65 16 125/75 93 L 11/13/23 03:52 97.4 F L 56 L 15 97/57 94 L 11/12/23 20:12 98.1 F 70 16 119/66 94 L 11/12/23 14:00 98.5 F 64 17 114/60 96 11/12/23 10:28 97.8 F 65 16 132/88 96 Intake and Output 11/12/23 11/13/23 11/13/23 22:59 06:59 14:59 Intake Total 120 Balance 120 Intake: Oral 120 Other: Voiding Method Bedside Commode External Catheter Weight 112.5 kg Results CBC & Chem 7: 11/12/23 04:44 11/12/23 04:44 Labs: Abnormal Lab Results - Last 24 Hours (Table) 11/12/23 11/12/23 11/13/23 Range/Units 16:09 22:15 06:44 POC Glucose (mg/dL) 155 H 148 H 67 L (70-110) mg/dL 11/13/23 Range/Units 08:45 POC Glucose (mg/dL) 152 H (70-110) mg/dL Microbiology - Last 24 Hours (Table) 11/12/23 08:55 Gram Stain - Preliminary Foot - Right
--- NOTE | 2023-11-13 11:41 | P.PN ---
Subjective Progress Note Date: 11/13/23 Principal diagnosis: Right foot infection Patient is seen and examined today as a follow-up. Yesterday she underwent incision and drainage of the right foot abscess. Deep tissue cultures were obtained and pending. Plan is for [facility] Patient has been afebrile. No complaints of pain at this time. Dressing in place on right foot. Objective - Vital Signs Vital signs: Vital Signs Temp 98.2 F 11/13/23 07:05 Pulse 65 11/13/23 07:05 Resp 16 11/13/23 07:05 BP 125/75 11/13/23 07:05 Pulse Ox 96 11/13/23 08:22 FiO2 21 11/12/23 09:08 Intake & Output 11/12/23 11/13/23 11/13/23 18:59 06:59 18:59 Intake Total 400 Output Total 10 Balance 390 Weight 112.5 kg Intake: IV 400 Output: Estimated Blood Loss 10 Other: Voiding Method Bedside Commode External Catheter - Exam General appearance: The patient is alert, oriented, appears in no acute distress. HET: Head is normocephalic and atraumatic. Pupils are equal and reactive. Neck: Supple. Abdomen: Soft, nontender, nondistended. Extremities: Charcot foot. Right foot with dressing clean dry and intact. Neurological: No focal deficits. Peripheral neuropathy with decreased sensation in feet. - Labs CBC & Chem 7: 11/12/23 04:44 11/12/23 04:44 Labs: Abnormal Lab Results - Last 24 Hours (Table) 11/12/23 11/12/23 11/12/23 Range/Units 09:21 16:09 22:15 POC Glucose (mg/dL) 113 H 155 H 148 H (70-110) mg/dL 11/13/23 Range/Units 06:44 POC Glucose (mg/dL) 67 L (70-110) mg/dL Microbiology - Last 24 Hours (Table) 11/12/23 08:55 Gram Stain - Preliminary Foot - Right Assessment and Plan Assessment: 1. Infected chronic diabetic right foot wound with abscess status post incision and drainage 2. Cellulitis 3. Charcot foot 4. History of previous right foot injury status post right great toe amputation 5. Diabetes mellitus 6. Peripheral neuropathy Plan: 1. Continue symptomatic and supportive care 2. Antibiotics per recommendations from infectious disease 3. Diet as tolerated 4. May resume anticoagulation 5. Please reconsult wound clinic for recommendations for discharge wound care orders and outpatient follow-up with wound clinic. Patient will need advanced wound care. 6. Discussed with patient that she may likely need a right below the knee amputation if infection does not improve and wound does not heal. Patient verbalizes understanding. Thank you for this consultation, patient is cleared from vascular surgery for discharge. Follow-up as needed per recommendations from wound care. The impression and plan of care has been dictated as directed. I performed a history and examination of this patient, discussed the same with the dictator. I agree with the dictator's note ,documented as a scribe. Any additional findings or plans will be noted.
[2023-11-13 12:04] LABS: Glucose,Whole Blood 169 mg/dL (70-110)
[2023-11-13 16:55] LABS: Glucose,Whole Blood 121 mg/dL (70-110)
--- NOTE | 2023-11-13 20:07 | P.PN ---
Progress Note - Text Progress Note Date: 11/13/23 Patient is a 63-year-old female was seen at [facility] because of generalized weakness fever, not feeling well and found to have leukocytosis found to have infection of the left foot circumferential plantar wound. Patient's wound has a purulent base. Patient also hyperglycemic. 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 Patient also complaining of mild epigastric abdominal discomfort. November 06, 2023: Sitting up in bed. Pain well-controlled. Eating well. Had a bowel movement. Patient has anemia. She states about 4 years ago patient had a EGD colonoscopy that was negative. Deep tissue cultures obtained by vascular. MRI of the foot has been ordered by the time. Patient on IV Unasyn and IV vancomycin. Patient is and niece at the bedside discussed. November 06: Did sit up in a chair earlier. Pain controlled. MRI done today showed no evidence of abscess. Abnormal bone marrow suggesting osteomyelitis. Also suggestions of tenosynovitis. Some of these changes could be postsurgical from previous amputation. Getting IV iron for iron deficiency. GI Dr. Li Snyder consulted. Vancomycin has been taken off. Cultures are growing Streptococcus agalactiae and Staph aureus, MSSA November 07: Up in a chair. Comfortable. IV Unasyn. PICC line ordered. Not for any surgical intervention. Discussed with ID. Discussed with case technician. Looking for ECF IV antibiotics. Authorization submitted. Getting IV iron. Seen by Dr. Li Snyder from GI. Outpatient follow-up. November 08: Patient is due to go to the ECF today. Authorization was in place. She owes over $300. She cannot afford the same and her sister is out of town who could not bring the money. Hence we will await nephrology social worker to sort this out. Otherwise patient doing well tolerating diet getting antibiotics. November 09: Patient pending to pay dollars dollars [phone]. Without this F cannot be able to accept the patient. r. insemination worker to look into the same. Look into indigent fund. Otherwise patient doing stable. November 10: Patient right foot rather swollen today. Difficult amount of pus came out from the plantar surface. I texted Dr. Rosado who is on for the vascular team about the same about taking patient for I&D as soon as possible. Discharge has been held for this purpose. Social work looking into payment so that patient go to rehab. November 11: Patient was seen this afternoon. Underwent surgery on the right foot and it was drained. Dressing in place. Per ID to wait for repeat cultures finalization. November 12: Sitting up in a recliner. Foot elevated. Dressing in place. Pain controlled. Operative cultures are pending. ID is awaiting for those to finalize antibiotics for discharge. Vascular suggested right below-knee amputation if wound does not improve. Active Medications Acetaminophen (Acetaminophen Tab 325 Mg Tab) 650 mg PO Q6HR PRN PRN Reason: Mild Pain or Fever > 100.5 Last Admin: 11/11/23 09:02 Dose: 650 mg Al Hydroxide/Mg Hydroxide (Mag Hydrox/Al Hydrox/Simeth 30 Ml Cup) 15 ml PO Q6HR PRN PRN Reason: Indigestion Atorvastatin Calcium (Atorvastatin 40 Mg Tab) 40 mg PO HS [facility] Last Admin: 11/12/23 21:49 Dose: 40 mg Calcium Carbonate/Glycine (Calcium Carbonate 500 Mg Chewable) 1,000 mg PO Q4HR PRN PRN Reason: Dyspepsia Clonazepam (Clonazepam 0.5 Mg Tab) 0.5 mg PO BID PRN PRN Reason: Anxiety Last Admin: 11/12/23 21:50 Dose: 0.5 mg Dapagliflozin (Dapagliflozin Propanediol 10 Mg Tablet) 10 mg PO DAILY [facility] Last Admin: 11/13/23 09:11 Dose: 10 mg Escitalopram Oxalate (Escitalopram 20 Mg Tab) 20 mg PO DAILY [facility] Last Admin: 11/13/23 09:10 Dose: 20 mg Famotidine (Famotidine 20 Mg Tab) 20 mg PO HS [facility] Last Admin: 11/12/23 21:50 Dose: 20 mg Ferrous Sulfate (Ferrous Sulfate 325 Mg Tab) 325 mg PO W/LUNCH [facility] Last Admin: 11/13/23 13:17 Dose: 325 mg Glipizide (Glipizide 10 Mg Tab) 10 mg PO BID [facility] Last Admin: 11/13/23 09:11 Dose: 10 mg Sodium Chloride (Saline 0.9%) 1,000 mls @ 75 mls/hr IV .[id number] [facility] Last Admin: 11/13/23 17:24 Dose: Not Given Ampicillin Sodium/Sulbactam (Sodium 3 gm/ Sodium Chloride) 100 mls @ 200 mls/hr IVPB Q6HR [facility]; Protocol Last Admin: 11/13/23 17:02 Dose: 200 mls/hr Lactated Ringer's (Lactated Ringers) 1,000 mls @ 20 mls/hr IV .Q24H [facility] Last Admin: 11/13/23 13:16 Dose: Not Given Insulin Aspart (Insulin Aspart (Novolog) 100 Unit/Ml Vial) 0 unit SQ AC-TID [facility]; Protocol Last Admin: 11/13/23 17:03 Dose: Not Given Lidocaine HCl (Lidocaine 1% (10mg/Ml) For Iv Start) 0.1 ml INTRADERMA PER PROTOCOL PRN PRN Reason: IV Start Lisinopril (Lisinopril 2.5 Mg Tab) 2.5 mg PO DAILY [facility] Last Admin: 11/13/23 09:10 Dose: 2.5 mg Loratadine (Loratadine 10 Mg Tab) 10 mg PO DAILY [facility] Last Admin: 11/13/23 09:10 Dose: 10 mg Metformin HCl (Metformin 500 Mg Tab) 1,000 mg PO BID-W/MEALS [facility] Last Admin: 11/13/23 17:02 Dose: Not Given Naloxone HCl (Naloxone 0.4 Mg/Ml 1 Ml Vial) 0.2 mg IV Q2M PRN PRN Reason: Opioid Reversal Ondansetron HCl (Ondansetron 4 Mg/2 Ml Vial) 4 mg IVP Q8HR PRN PRN Reason: Nausea And Vomiting Last Admin: 11/12/23 08:24 Dose: 4 mg Pantoprazole Sodium (Pantoprazole 40 Mg Tablet) 40 mg PO DAILY [facility] Last Admin: 11/13/23 09:10 Dose: 40 mg Tramadol HCl (Tramadol 50 Mg Tab) 50 mg PO Q6H PRN PRN Reason: Moderate Pain (Scale 4 to 6) Last Admin: 11/13/23 09:10 Dose: 50 mg On examination: VITAL SIGNS: 98.6, 65, 17, 136 x 67, 94% room air GENERAL APPEARANCE: Up in recliner, comfortable HEENT: Normal external appearance of nose and ear. Oral cavity normal EYES: Pupils equal. Conjunctiva normal. NECK: JVD not raised. Mass not palpable. RESPIRATORY: Respiratory effort normal. Lungs clear to auscultation. CARDIOVASCULAR: First and second sounds normal. No edema. ABDOMEN: Soft. Liver and spleen not palpable. No tenderness. No mass palpable. PSYCHIATRY: Alert and oriented x3. Mood and affect normal. EXTREMITY: Right foot in a dressing INVESTIGATIONS, reviewed in the clinical context: November 11: White count 9.5 globin 8.8 platelets 620 potassium 4.4 creatinine 0.73 November 07: White count 10.3 hemoglobin 9.3 platelets 435 potassium 4.8 creatinine 0.82. Procalcitonin 0.73 Right foot MRI [November 06, with and without contrast] plantar surface without evidence for abscess. Sinusitis changes throughout the foot. Abnormal bone marrow signal suggesting osteomyelitis. Immediately next to the wound. Fluid signal along flexor hallucis longus and flexor digitorum longus suggestive of tenosynovitis. Some of it also could be postsurgical changes given amputation. November 05: White: 0.1 hemoglobin 9 platelets 326 sodium 140 potassium 4.4 BUN 20 creatinine 1.01 Iron 16 TIBC 273% saturation 5.8 transferrin [address] [November 03] streaky edema of the right lower extremity with organizing fluid collection along the medial foot surrounding multiple osseous structures. With abscess/cellulitis. Assessment and plan: -Sepsis secondary to right foot cellulitis with osteomyelitis-acute, wound cultures grew Streptococcus agalactiae, Staphylococcus aureus-MSSA IV Unasyn. -Acute right foot abscess, foot rather swollen today. Was putting out lSignificant amount of pus: Right foot abscess drained by Dr. Brunson November 12.-If infection does not improve they suggesting right below-knee amputation dressing in place ID waiting for repeat OR cultures to be finalized. Patient is to follow-up at wound care center. Being followed by wound care team -Acute renal failure secondary to sepsis.: Improved Admission creatinine 1.49. -Mild hypovolemic hyponatremia: Corrected IV fluids -Type 2 diabetes mellitus on oral hypoglycemic Follow Accu-Cheks. Metformin. -Diabetic peripheral neuropathy -Hyperlipidemia Lipitor -Gastroesophageal reflux disease Protonix -Essential hypertension Lisinopril -Iron deficiency anemia GI Dr. Snyder saw the patient. For outpatient follow-up IV Ferrlecit x 3 doses. Oral ferrous sulfate -No code Discussed with patient. Await OR cultures. For finalization of antibiotics. Past Medical History Past Medical History: Diabetes Mellitus, GERD/Reflux, Hypertension Additional Past Medical History / Comment(s): Anemia, bleeding ulcer History of Any Multi-Drug Resistant Organisms: None Reported Past Surgical History: Appendectomy, Section, Cholecystectomy, Hysterectomy Additional Past Surgical History / Comment(s): right foot- greater toe amputation- 01/2023 Past Psychological History: Anxiety, Depression Past Alcohol Use History: None Reported Past Drug Use History: None Reported
[2023-11-13 21:38] LABS: Glucose,Whole Blood 195 mg/dL (70-110)
[2023-11-14 05:43] LABS: Basophils # (A) 0.1 k/uL (0-0.2); Basophils % (A) 1 %; Eosinophils # (A) 0.4 k/uL (0-0.7); Eosinophils % (A) 4 %; HCT 27.8 % (34.0-46.0); HGB 8.5 gm/dL (11.4-16.0); Hypochromasia Moderate; Lymphocytes # (A) 2.4 k/uL (1.0-4.8); Lymphocytes % (A) 27 %; MCH 28.1 pg (25.0-35.0); MCHC 30.8 g/dL (31.0-37.0); MCV 91.2 fL (80.0-100.0); Mean Platelet Volume 7.8; Monocytes # (A) 0.3 k/uL (0-1.0); Monocytes % (A) 3 %; Neutrophils # (A) 5.6 k/uL (1.3-7.7); Neutrophils % (A) 63 %; Platelet Count 658 k/uL (150-450); RBC 3.04 m/uL (3.80-5.40); RDW 15.5 % (11.5-15.5); WBC 8.9 k/uL (3.8-10.6)
[2023-11-14 05:52] LABS: African American GFR (CKD) >90 (>60 ml/min/1.73 sqM); Anion Gap 2 mmol/L; Blood Urea Nitrogen 6 mg/dL (7-17); Calcium 8.5 mg/dL (8.4-10.2); Carbon Dioxide 25 mmol/L (22-30); Chloride 108 mmol/L (98-107); Glucose 86 mg/dL (74-99); Non-African American GFR(CKD) 87 (>60 ml/min/1.73 sqM); Potassium 3.9 mmol/L (3.5-5.1); Sodium 135 mmol/L (137-145)
[2023-11-14 06:27] LABS: Glucose,Whole Blood 94 mg/dL (70-110)
[2023-11-14 09:05] VITALS: BP 162/70; PULSE 67; RESP 16; TEMP 98.3
[2023-11-14 11:48] LABS: Glucose,Whole Blood 117 mg/dL (70-110)
--- NOTE | 2023-11-14 13:03 | P.PN ---
Subjective Progress Note Date: 11/14/23 Principal diagnosis: Right foot infection Patient is seen and examined today as a follow-up. Yesterday she underwent incision and drainage of the right foot abscess. Deep tissue cultures were obtained and pending. Plan is for [facility] Patient has been afebrile. No complaints of pain at this time. Dressing in place on right foot. Objective - Vital Signs Vital signs: Vital Signs Temp 98.3 F 11/14/23 08:00 Pulse 67 11/14/23 08:00 Resp 16 11/14/23 08:00 BP 162/70 11/14/23 08:00 Pulse Ox 97 11/14/23 08:00 FiO2 21 11/12/23 09:08 Intake & Output 11/13/23 11/14/23 11/14/23 18:59 06:59 18:59 Intake Total 320 480 Output Total 1600 850 Balance -1280 -850 480 Intake: Oral 320 480 Output: Urine 1600 850 Other: Voiding Method Bedside Commode External Catheter # Voids 4 # Bowel Movements 3 2 - Exam General appearance: The patient is alert, oriented, appears in no acute distress. HET: Head is normocephalic and atraumatic. Pupils are equal and reactive. Neck: Supple. Abdomen: Soft, nontender, nondistended. Extremities: Charcot foot. Right foot with dressing clean dry and intact. Neurological: No focal deficits. Peripheral neuropathy with decreased sensation in feet. - Labs CBC & Chem 7: 11/14/23 05:23 11/14/23 05:23 Labs: Abnormal Lab Results - Last 24 Hours (Table) 11/13/23 11/13/23 11/13/23 Range/Units 12:03 16:53 21:36 RBC (3.80-5.40) m/uL Hgb (11.4-16.0) gm/dL Hct (34.0-46.0) % MCHC (31.0-37.0) g/dL Plt Count (150-450) k/uL Sodium (137-145) mmol/L Chloride (98-107) mmol/L BUN (7-17) mg/dL POC Glucose (mg/dL) 169 H 121 H 195 H (70-110) mg/dL 11/14/23 11/14/23 Range/Units 05:23 05:23 RBC 3.04 L (3.80-5.40) m/uL Hgb 8.5 L (11.4-16.0) gm/dL Hct 27.8 L (34.0-46.0) % MCHC 30.8 L (31.0-37.0) g/dL Plt Count 658 H (150-450) k/uL Sodium 135 L (137-145) mmol/L Chloride 108 H (98-107) mmol/L BUN 6 L (7-17) mg/dL POC Glucose (mg/dL) (70-110) mg/dL Microbiology - Last 24 Hours (Table) 11/12/23 08:55 Gram Stain - Final Foot - Right Wound Culture - Final Assessment and Plan Assessment: 1. Infected chronic diabetic right foot wound with abscess status post incision and drainage 2. Cellulitis 3. Charcot foot 4. History of previous right foot injury status post right great toe amputation 5. Diabetes mellitus 6. Peripheral neuropathy Plan: 1. Continue symptomatic and supportive care 2. Antibiotics per recommendations from infectious disease 3. Diet as tolerated 4. May resume anticoagulation 5. Please reconsult wound clinic for recommendations for discharge wound care orders and outpatient follow-up with wound clinic. Patient will need advanced wound care. 6. Discussed with patient that she may likely need a right below the knee amputation if infection does not improve and wound does not heal. Patient verbalizes understanding. Thank you for this consultation, patient is cleared from vascular surgery for discharge. We will sign off at this time. The impression and plan of care has been dictated as directed. I performed a history and examination of this patient, discussed the same with the dictator. I agree with the dictator's note ,documented as a scribe. Any additional findings or plans will be noted.
--- NOTE | 2023-11-14 13:29 | P.DS ---
Providers Date of admission: 11/04/23 20:45 Expected date of discharge: 11/14/23 Attending physician: Horacio Levin Consults: 11/05/23 10:28 Consult Physician Stat Consulting Provider: Ravindra Santo Consult Reason/Comments: infectious disease, wound to right foot Do you want consulting provider notified?: Yes 11/11/23 11:27 Consult Physician Routine Consulting Provider: Deo Rosado Consult Reason/Comments: r foot abscess Do you want consulting provider notified?: Yes Primary care physician: [facility] Course: Patient is a 63-year-old female was seen at [facility] because of generalized weakness fever, not feeling well and found to have leukocytosis found to have infection of the left foot circumferential plantar wound. Patient's wound has a purulent base. Patient also hyperglycemic. 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 Patient also complaining of mild epigastric abdominal discomfort. November 06, 2023: Sitting up in bed. Pain well-controlled. Eating well. Had a bowel movement. Patient has anemia. She states about 4 years ago patient had a EGD colonoscopy that was negative. Deep tissue cultures obtained by vascular. MRI of the foot has been ordered by the time. Patient on IV Unasyn and IV vancomycin. Patient is and niece at the bedside discussed. November 06: Did sit up in a chair earlier. Pain controlled. MRI done today showed no evidence of abscess. Abnormal bone marrow suggesting osteomyelitis. Also suggestions of tenosynovitis. Some of these changes could be postsurgical from previous amputation. Getting IV iron for iron deficiency. GI Dr. Li Snyder consulted. Vancomycin has been taken off. Cultures are growing Streptococcus agalactiae and Staph aureus, MSSA November 07: Up in a chair. Comfortable. IV Unasyn. PICC line ordered. Not for any surgical intervention. Discussed with ID. Discussed with case advocate. Looking for F IV antibiotics. Authorization submitted. Getting IV iron. Seen by Dr. Li Snyder from GI. Outpatient follow-up. November 08: Patient is due to go to the ECF today. Authorization was in place. She owes over $300. She cannot afford the same and her sister is out of town who could not bring the money. Hence we will await geriatric social worker to sort this out. Otherwise patient doing well tolerating diet getting antibiotics. November 09: Patient pending to pay dollars dollars [phone]. Without this ECF cannot be able to accept the patient. r. plate worker helper to look into the same. Look into indigent fund. Otherwise patient doing stable. November 10: Patient right foot rather swollen today. Difficult amount of pus came out from the plantar surface. I texted Dr. Rosado who is on for the vascular team about the same about taking patient for I&D as soon as possible. Discharge has been held for this purpose. Social work looking into payment so that patient go to rehab. November 11: Patient was seen this afternoon. Underwent surgery on the right foot and it was drained. Dressing in place. Per ID to wait for repeat cultures finalization. November 12: Sitting up in a recliner. Foot elevated. Dressing in place. Pain controlled. Operative cultures are pending. ID is awaiting for those to finalize antibiotics for discharge. Vascular suggested right below-knee amputation if wound does not improve. November 13: Foot pain reasonable. Tolerating diet well. Repeat cultures negative. Will be DC'd on IV Unasyn. For 30 days. Return to wound care center follow-up with Dr. Ny. Also follow-up with vascular Dr. Brunson. Questions answered. Follow-up with ID Discussion and discharge planning more than 35 minutes On examination: VITAL SIGNS: 98.3, 67, 16, 162 x 70, 97% room air GENERAL APPEARANCE: Up in recliner, comfortable HEENT: Normal external appearance of nose and ear. Oral cavity normal EYES: Pupils equal. Conjunctiva normal. NECK: JVD not raised. Mass not palpable. RESPIRATORY: Respiratory effort normal. Lungs clear to auscultation. CARDIOVASCULAR: First and second sounds normal. No edema. ABDOMEN: Soft. Liver and spleen not palpable. No tenderness. No mass palpable. PSYCHIATRY: Alert and oriented x3. Mood and affect normal. EXTREMITY: Right foot in a dressing INVESTIGATIONS, reviewed in the clinical context: November 13: White count 8.9 hemoglobin 8.5 platelets 658 potassium 3.9 creatinine 0.75 November 11: White count 9.5 globin 8.8 platelets 620 potassium 4.4 creatinine 0.73 November 07: White count 10.3 hemoglobin 9.3 platelets 435 potassium 4.8 creatinine 0.82. Procalcitonin 0.73 Right foot MRI [November 06, with and without contrast] plantar surface without evidence for abscess. Sinusitis changes throughout the foot. Abnormal bone marrow signal suggesting osteomyelitis. Immediately next to the wound. Fluid signal along flexor hallucis longus and flexor digitorum longus suggestive of tenosynovitis. Some of it also could be postsurgical changes given amputation. November 05: White: 0.1 hemoglobin 9 platelets 326 sodium 140 potassium 4.4 BUN 20 creatinine 1.01 Iron 16 TIBC 273% saturation 5.8 transferrin [address] [November 03] streaky edema of the right lower extremity with organizing fluid collection along the medial foot surrounding multiple osseous structures. With abscess/cellulitis. Assessment and plan: -Sepsis secondary to right foot cellulitis with osteomyelitis-acute, wound cultures grew Streptococcus agalactiae, Staphylococcus aureus-MSSA IV Unasyn. -Acute right foot abscess, foot rather swollen today. Was putting out lSignificant amount of pus: Right foot abscess drained by Dr. Brunson November 12.-If infection does not improve they suggesting right below-knee amputation dressing in place Repeat cultures from the OR: Negative IV Unasyn for 30 days Patient is to follow-up at wound care center. Being followed by wound care team, ID -Acute renal failure secondary to sepsis.: Resolved Admission creatinine 1.49. -Mild hypovolemic hyponatremia: Corrected IV fluids -Type 2 diabetes mellitus on oral hypoglycemic Follow Accu-Cheks. Metformin. -Diabetic peripheral neuropathy -Hyperlipidemia Lipitor -Gastroesophageal reflux disease Protonix -Essential hypertension Lisinopril -Iron deficiency anemia GI Dr. Snyder saw the patient. For outpatient follow-up IV Ferrlecit x 3 doses. Oral ferrous sulfate -No code Disposition: Send telemetry large for rehab Past Medical History Past Medical History: Diabetes Mellitus, GERD/Reflux, Hypertension Additional Past Medical History / Comment(s): Anemia, bleeding ulcer History of Any Multi-Drug Resistant Organisms: None Reported Past Surgical History: Appendectomy, Section, Cholecystectomy, Hysterectomy Additional Past Surgical History / Comment(s): right foot- greater toe amputation- 01/2023 Past Psychological History: Anxiety, Depression Past Alcohol Use History: None Reported Past Drug Use History: None Reported Plan - Discharge Summary Discharge Rx Participant: No New Discharge Prescriptions: New Ampicillin-Sulbactam [Unasyn 3 gm vial] 3 gm IVPB Q6HR #120 each Acetaminophen Tab [Tylenol] 650 mg PO Q6HR PRN tab PRN Reason: Mild Pain Or Fever > 100.5 traMADol HCl [Ultram] 50 mg PO Q6H PRN #12 tab PRN Reason: Moderate Pain (Scale 4 To 6) Ferrous Sulfate [Iron (65 MG Elemental)] 325 mg PO W/LUNCH tab INSULIN ASPART (NovoLOG) [NovoLOG (formulary)] 0 unit SQ AC-TID each Famotidine [Pepcid] 20 mg PO HS tab Continue QUEtiapine FUMARATE 100 mg PO HS Escitalopram [Lexapro] 20 mg PO DAILY Esomeprazole Magnesium [NexIUM] 20 mg PO DAILY metFORMIN HCL [Glucophage] 1,000 mg PO BID Cetirizine HCl [Zyrtec] 10 mg PO DAILY glipiZIDE [Glucotrol] 10 mg PO BID clonazePAM [KlonoPIN] 0.5 mg PO BID #6 tab lisinopriL [Zestril] 2.5 mg PO DAILY Empagliflozin [Jardiance] 25 mg PO DAILY Atorvastatin [Lipitor] 40 mg PO HS Discontinued Fluticasone Nasal Tenstrike [Flonase Nasal Tenstrike] 1 spray EA NOSTRIL DAILY PRN PRN Reason: Allergy Symptoms Discharge Medication List Escitalopram [Lexapro] 20 mg PO DAILY 07/20/14 [History] Esomeprazole Magnesium [NexIUM] 20 mg PO DAILY 07/20/14 [History] QUEtiapine FUMARATE 100 mg PO HS 07/20/14 [History] Atorvastatin [Lipitor] 40 mg PO HS 11/04/23 [History] Cetirizine HCl [Zyrtec] 10 mg PO DAILY 11/04/23 [History] Empagliflozin [Jardiance] 25 mg PO DAILY 11/04/23 [History] glipiZIDE [Glucotrol] 10 mg PO BID 11/04/23 [History] lisinopriL [Zestril] 2.5 mg PO DAILY 11/04/23 [History] metFORMIN HCL [Glucophage] 1,000 mg PO BID 11/04/23 [History] Ampicillin-Sulbactam [Unasyn 3 gm vial] 3 gm IVPB Q6HR #120 each 11/08/23 [Rx] Acetaminophen Tab [Tylenol] 650 mg PO Q6HR PRN tab 11/14/23 [Rx] Famotidine [Pepcid] 20 mg PO HS tab 11/14/23 [Rx] Ferrous Sulfate [Iron (65 MG Elemental)] 325 mg PO W/LUNCH tab 11/14/23 [Rx] INSULIN ASPART (NovoLOG) [NovoLOG (formulary)] 0 unit SQ AC-TID each 11/14/23 [Rx] clonazePAM [KlonoPIN] 0.5 mg PO BID #6 tab 11/14/23 [Rx] traMADol HCl [Ultram] 50 mg PO Q6H PRN #12 tab 11/14/23 [Rx] Follow up Appointment(s)/Referral(s): Zara Brunson DO [STAFF PHYSICIAN] - As Needed Channing Duggan MD [Primary Care Provider] - 1-2 days [facility] [NON-STAFF] - 1 Week Ravindra Santo MD [STAFF PHYSICIAN] - 2 Weeks Ambulatory/Diagnostic Orders: Basic Metabolic Panel [LAB.AMB] Location: None Selected C Reactive Protein [LAB.AMB] Location: None Selected Complete Blood Count w/diff [LAB.AMB] Location: None Selected Erythrocyte Sedimentation Rate [LAB.AMB] Location: None Selected Activity/Diet/Wound Care/Special Instructions: [facility] rehab Irrigate right foot wound daily with half peroxide and normal saline. Apply iodoform gauze, dry gauze, abd, and wrap with rolled gauze.
--- NOTE | 2023-11-14 15:39 | P.PN ---
Subjective Progress Note Date: 11/13/23 Principal diagnosis: Reason for follow-up is right diabetic foot infection Patient is a 63-year-old female with a past medical history significant diabetes mellitus reflux hypertension did have a recent right big toe diabetic foot infection requiring amputation at [place] patient presenting to the hospital concerning for nausea not feeling well and did have elevated blood sugar and also noticed to have right foot abscess and cellulitis.Patient is status post incision and drainage of the right foot abscess completed by vascular surgery on 11/12/2023 On today's evaluation that is 11/13/2023,the patient denies any fever or any chills, patient is breathing comfortably on room air, the patient denies chest pain shortness of breath and no significant cough, patient denies abdominal pain, no nausea vomiting or diarrhea. Patient denies any worsening pain to the right foot wound. Patient did not have any lab draw today cultures are currently pending Objective - Vital Signs Vital signs: Vital Signs Temp 98.2 F 11/13/23 07:05 Pulse 65 11/13/23 07:05 Resp 16 11/13/23 07:05 BP 125/75 11/13/23 07:05 Pulse Ox 96 11/13/23 08:22 FiO2 21 11/12/23 09:08 Intake & Output 11/12/23 11/13/23 11/13/23 18:59 06:59 18:59 Intake Total 400 120 Output Total 10 400 Balance 390 -280 Weight 112.5 kg Intake: IV 400 Oral 120 Output: Urine 400 Estimated Blood Loss 10 Other: Voiding Method Bedside Commode External Catheter # Bowel Movements 1 - Exam GENERAL DESCRIPTION: Middle-age female up in the chair in no distress RESPIRATORY SYSTEM: Unlabored breathing , decreased breath sounds at bases HEART: S1 S2 regular rate and rhythm , ABDOMEN: Soft , no tenderness EXTREMITIES: Right foot plantar wound currently dressed - Labs CBC & Chem 7: 11/14/23 05:23 11/14/23 05:23 Labs: Abnormal Lab Results - Last 24 Hours (Table) 11/12/23 11/12/23 11/13/23 Range/Units 16:09 22:15 06:44 POC Glucose (mg/dL) 155 H 148 H 67 L (70-110) mg/dL 11/13/23 11/13/23 Range/Units 08:45 12:03 POC Glucose (mg/dL) 152 H 169 H (70-110) mg/dL Microbiology - Last 24 Hours (Table) 11/12/23 08:55 Gram Stain - Preliminary Foot - Right Wound Culture - Preliminary Assessment and Plan (1) Foot abscess, right Status: Acute Code(s): L02.611 - CUTANEOUS ABSCESS OF RIGHT FOOT SNOMED Code(s): 63146655128387577 (2) Leukocytosis Status: Acute Code(s): D72.829 - ELEVATED WHITE BLOOD CELL COUNT, UNSPECIFIED SNOMED Code(s): 602429012 Plan: 1patient presented to hospital with a right diabetic foot infection in this patient who recently did have right big toe amputation now presenting with the likely infected callus on the plantar aspect of the right foot with second infection and abscess formation as there was evidence of purulent drainage will need to cover for the polymicrobial antonio associated with diabetic foot infe ction. 2patient did have an MRI did not mention any abscess concern for possible osteomyelitis vascular surgeon initially recommending no debridement subsequently did have spontaneous drainage and the patient was taken to the OR status post surgical drainage 3local cultures has been finalized with strep MSSA and anaerobes, the patient is status post surgical drainage of the right foot abscess with the OR cultures currently pending 4patient to continue with Unasyn while waiting for the OR culture to finalize Dictation was produced using [employer] dictation software. please excuse any grammatical, word or spelling errors. Time with Patient: Less than 30
--- NOTE | 2023-11-14 15:40 | P.PN ---
Subjective Progress Note Date: 11/14/23 Principal diagnosis: Reason for follow-up is right diabetic foot infection Patient is a 63-year-old female with a past medical history significant diabetes mellitus reflux hypertension did have a recent right big toe diabetic foot infection requiring amputation at [place] patient presenting to the hospital concerning for nausea not feeling well and did have elevated blood sugar and also noticed to have right foot abscess and cellulitis.Patient is status post incision and drainage of the right foot abscess completed by vascular surgery on 11/12/2023 On today's evaluation that is 11/14/2023,the patient remains to be afebrile, patient is on room air not requiring supplemental oxygen and denies any shortness of breath no chest pain or cough.Patient denies having any nausea or vomiting, no abdominal pain and no diarrhea has been reported, denies any worsening pain to the right foot wound or any drainage. Patient white count normalized to 8.9, creatinine 0.74 OR culture have been negative so far Objective - Vital Signs Vital signs: Vital Signs Temp 98.3 F 11/14/23 08:00 Pulse 67 11/14/23 08:00 Resp 16 11/14/23 08:00 BP 162/70 11/14/23 08:00 Pulse Ox 97 11/14/23 08:00 FiO2 21 11/12/23 09:08 Intake & Output 11/13/23 11/14/23 11/14/23 18:59 06:59 18:59 Intake Total 320 480 Output Total 1600 850 Balance -1280 -850 480 Intake: Oral 320 480 Output: Urine 1600 850 Other: Voiding Method Bedside Commode External Catheter # Voids 4 4 # Bowel Movements 3 2 1 - Exam GENERAL DESCRIPTION: Middle-age female up in the chair in no distress RESPIRATORY SYSTEM: Unlabored breathing , decreased breath sounds at bases HEART: S1 S2 regular rate and rhythm , ABDOMEN: Soft , no tenderness EXTREMITIES: Right foot plantar wound currently dressed no drainage on the dressing - Labs CBC & Chem 7: 11/14/23 05:23 11/14/23 05:23 Labs: Abnormal Lab Results - Last 24 Hours (Table) 11/13/23 11/13/23 11/14/23 Range/Units 16:53 21:36 05:23 RBC 3.04 L (3.80-5.40) m/uL Hgb 8.5 L (11.4-16.0) gm/dL Hct 27.8 L (34.0-46.0) % MCHC 30.8 L (31.0-37.0) g/dL Plt Count 658 H (150-450) k/uL Sodium (137-145) mmol/L Chloride (98-107) mmol/L BUN (7-17) mg/dL POC Glucose (mg/dL) 121 H 195 H (70-110) mg/dL 11/14/23 11/14/23 Range/Units 05:23 11:47 RBC (3.80-5.40) m/uL Hgb (11.4-16.0) gm/dL Hct (34.0-46.0) % MCHC (31.0-37.0) g/dL Plt Count (150-450) k/uL Sodium 135 L (137-145) mmol/L Chloride 108 H (98-107) mmol/L BUN 6 L (7-17) mg/dL POC Glucose (mg/dL) 117 H (70-110) mg/dL Microbiology - Last 24 Hours (Table) 11/12/23 08:55 Gram Stain - Final Foot - Right Wound Culture - Final Assessment and Plan (1) Foot abscess, right Status: Acute Code(s): L02.611 - CUTANEOUS ABSCESS OF RIGHT FOOT SNOMED Code(s): 08740845143396543 (2) Leukocytosis Status: Acute Code(s): D72.829 - ELEVATED WHITE BLOOD CELL COUNT, UNSPECIFIED SNOMED Code(s): 369544042 Plan: 1patient presented to hospital with a right diabetic foot infection in this patient who recently did have right big toe amputation now presenting with the likely infected callus on the plantar aspect of the right foot with second infection and abscess formation as there was evidence of purulent drainage will need to cover for the polymicrobial antonio associated with diabetic foot infection. 2patient did have an MRI did not mention any abscess concern for possible osteomyelitis vascular surgeon initially recommending no debridement subsequently did have spontaneous drainage and the patient was taken to the OR status post surgical drainage 3local cultures has been finalized with strep MSSA and anaerobes, the patient is status post surgical drainage of the right foot abscess with the OR cultures negative for resistant pathogen 4we will plan on total of 6-week course of IV antibiotic in the form of Unasyn on the basis of initial culture and close outpatient follow-up with weekly monitoring of CRP and sed rate Dictation was produced using [employer] software. please excuse any grammatical, word or spelling errors. Time with Patient: Less than 30
== END 2023-11-14 15:12 | DRG 872 ==
LOC: EC 19:02 → 3SCARD 20:45 → 4SSUR 11-07 22:31
PROVIDERS: ADMIT Hospitalist; ATTEND Hospitalist
PROC: 02HV33Z Insertion of Infusion Device into Superior Vena Cava, Percutaneous Approach (ICD-10-PCS; 2023-11-08)
PROC: 4A02X4A Measurement of Cardiac Electrical Activity, Guidance, External Approach (ICD-10-PCS; 2023-11-08)
PROC: 0J9Q0ZZ Drainage of Right Foot Subcutaneous Tissue and Fascia, Open Approach (ICD-10-PCS; principal; 2023-11-12 08:30)
DX: A40.1 Sepsis due to streptococcus, group B (principal); E87.1 Hypo-osmolality and hyponatremia; N17.9 Acute kidney failure, unspecified; L02.611 Cutaneous abscess of right foot; M86.171 Other acute osteomyelitis, right ankle and foot; L03.115 Cellulitis of right lower limb; L97.415 Non-pressure chronic ulcer of right heel and midfoot with muscle involvement without evidence of necrosis; R65.20 Severe sepsis without septic shock; A41.01 Sepsis due to Methicillin susceptible Staphylococcus aureus; E11.42 Type 2 diabetes mellitus with diabetic polyneuropathy; E11.610 Type 2 diabetes mellitus with diabetic neuropathic arthropathy; E11.621 Type 2 diabetes mellitus with foot ulcer; E11.628 Type 2 diabetes mellitus with other skin complications; E11.69 Type 2 diabetes mellitus with other specified complication; E11.622 Type 2 diabetes mellitus with other skin ulcer; E11.65 Type 2 diabetes mellitus with hyperglycemia; F32.A Depression, unspecified; I10 Essential (primary) hypertension; D50.9 Iron deficiency anemia, unspecified; Z79.4 Long term (current) use of insulin; Z89.411 Acquired absence of right great toe; E78.5 Hyperlipidemia, unspecified; E86.1 Hypovolemia; F41.9 Anxiety disorder, unspecified; K29.70 Gastritis, unspecified, without bleeding; K21.9 Gastro-esophageal reflux disease without esophagitis; Z87.19 Personal history of other diseases of the digestive system; Z79.84 Long term (current) use of oral hypoglycemic drugs; Z79.899 Other long term (current) drug therapy
CPT/HCPCS: 36415; 36573; 80048; 80053; 82272; 82565; 82728; 83540; 83550; 83735; 84145; 85025; 85027; 85652; 86140; 87070; 87075; 87077; 87186; 87205; 94760; 96361; 96365; 96367; 96368; 96372; 99285

== ENCOUNTER 2024-01-24 10:36 | Emergency (ER) | payer BC ==
[2024-01-24 10:45] VITALS: BP 131/65; PULSE 70; RESP 18; TEMP 97.4
--- NOTE | 2024-01-24 11:02 | ED ---
Extremity Problem HPI - General Chief complaint: Skin/Abscess/Foreign Body Stated complaint: R Foot Infection Time Seen by Provider: 01/24/24 10:46 Source: patient, RN notes reviewed Mode of arrival: wheelchair Limitations: no limitations - History of Present Illness Initial comments: This is a 63-year-old female who presents to the emergency department for concerns of a right foot infection. Patient has a history of recurrent infections to the right foot leading to a right great toe amputation as well as multiple bouts of debridement. She has also been to rehab many times for antibiotics through a PICC line. States that this had been healing well, however over the last couple of days she noticed that one of the wounds started to become red and swollen again, prompting her to come in for evaluation. This is only moderately painful. Denies any fevers or chills. - Related Data Home Medications Medication Instructions Recorded Confirmed Escitalopram [Lexapro] 20 mg PO DAILY 07/20/14 11/04/23 Esomeprazole Magnesium [NexIUM] 20 mg PO DAILY 07/20/14 11/04/23 QUEtiapine FUMARATE 100 mg PO HS 07/20/14 11/04/23 Atorvastatin [Lipitor] 40 mg PO HS 11/04/23 11/04/23 Cetirizine HCl [Zyrtec] 10 mg PO DAILY 11/04/23 11/04/23 Empagliflozin [Jardiance] 25 mg PO DAILY 11/04/23 11/04/23 glipiZIDE [Glucotrol] 10 mg PO BID 11/04/23 11/04/23 lisinopriL [Zestril] 2.5 mg PO DAILY 11/04/23 11/04/23 metFORMIN HCL [Glucophage] 1,000 mg PO BID 11/04/23 11/04/23 Previous Rx's Medication Instructions Recorded Ampicillin-Sulbactam [Unasyn 3 gm 3 gm IVPB Q6HR #120 each 11/08/23 vial] Acetaminophen Tab [Tylenol] 650 mg PO Q6HR PRN tab 11/14/23 Famotidine [Pepcid] 20 mg PO HS tab 11/14/23 Ferrous Sulfate [Iron (65 MG 325 mg PO W/LUNCH tab 11/14/23 Elemental)] INSULIN ASPART (NovoLOG) [NovoLOG 0 unit SQ AC-TID each 11/14/23 (formulary)] clonazePAM [KlonoPIN] 0.5 mg PO BID #6 tab 11/14/23 traMADol HCl [Ultram] 50 mg PO Q6H PRN #12 tab 11/14/23 clindamycin HCL 300 mg PO QID 10 Days #40 capsule 01/24/24 Allergies Allergy/AdvReac Type Severity Reaction Status Date / Time prochlorperazine edisylate AdvReac Anaphylaxis Verified 01/24/24 10:38 [From Compazine] prochlorperazine maleate AdvReac Anaphylaxis Verified 01/24/24 10:38 [From Compazine] Review of Systems ROS Statement: Those systems with pertinent positive or pertinent negative responses have been documented in the HPI. ROS Other: All systems not noted in ROS Statement are negative. Past Medical History Past Medical History: Diabetes Mellitus, GERD/Reflux, Hypertension Additional Past Medical History / Comment(s): Anemia, bleeding ulcer History of Any Multi-Drug Resistant Organisms: None Reported Past Surgical History: Appendectomy, Section, Cholecystectomy, Hysterectomy Additional Past Surgical History / Comment(s): right foot- greater toe amputation- 01/2023 Past Psychological History: Anxiety, Depression Smoking Status: Former smoker Past Alcohol Use History: None Reported Past Drug Use History: None Reported General Exam Limitations: no limitations General appearance: alert, in no apparent distress Head exam: Present: atraumatic, normocephalic, normal inspection Respiratory exam: Present: normal lung sounds bilaterally. Absent: respiratory distress, wheezes, rales, rhonchi, stridor Cardiovascular Exam: Present: regular rate, normal rhythm, normal heart sounds. Absent: systolic murmur, diastolic murmur, rubs, gallop, clicks Extremities exam: Present: other (Wound to the medial aspect of the right foot with surrounding erythema and tenderness. No drainage.) Neurological exam: Present: alert, oriented X3, CN II-XII intact Psychiatric exam: Present: normal affect, normal mood Course Vital Signs 01/24/24 10:38 Temperature 97.4 F L Pulse Rate 70 Respiratory 18 Rate Blood Pressure 131/65 O2 Sat by Pulse 97 Oximetry Medical Decision Making - Medical Decision Making This is a 63-year-old female who presents to the emergency department for a righ t foot wound. Was pt. sent in by a medical professional or institution? @ -No Did you speak to anyone other than the patient for history? @ -No Did you review nursing and triage notes? @ -Yes, and I agree, it is accurate with regards to the patient's symptoms. Were old charts reviewed? @ -No Differential Diagnosis? @ -Abscess, cellulitis, insect bite, abrasion, this is not meant to be an all- inclusive list. EKG interpreted by me (3pts min.)? @ -Not obtained X-rays interpreted by me (1pt min.)? @ -X-ray of the right foot obtained. My interpretation identifies no evidence of osseous erosion. CT interpreted by me (1pt min.)? @ -Not obtained U/S interpreted by me (1pt. min.)? @ -Not obtained What testing was considered but not performed? (CT, X-rays, U/S, labs)? Why? @ -None What meds were considered but not given? Why? @ -None Did you discuss the management of the patient with other professionals? @ -No Did you reconcile home meds? @ -No Was smoking cessation discussed for >3mins.? @ -No Was critical care preformed (if so, how long)? @ -No Were there social determinants of health that impacted care today? How? (Homelessness, low income, unemployed, alcoholism, drug addiction, transportation, low edu. Level, literacy, decrease access to med. care, [facility], rehab)? @ -No Was there de-escalation of care discussed even if they declined? (Discuss DNR or withdrawal of care, Hospice)? @ -No What co-morbidities impacted this encounter? (DM, HTN, Smoking, COPD, CAD, Cancer, CVA, Hep., AIDS, mental health diagnosis, sleep apnea, morbid obesity)? @ -DM Was patient admitted / discharged? @ -Discharged. Lab work demonstrates very mild leukocytosis with a white blood cell count of 10.8. She also has mild hyperkalemia. However, she did not use her insulin yet today and this will likely correct itself when she administers this. X-ray of the right foot demonstrates soft tissue swelling without any evidence of osseous erosion. Advised that she is likely developing an infection, however this is not yet at the point where she necessarily needs to be admitted. Advised that we can start her on outpatient management. Clindamycin prescribed. She was given strict return parameters and advised to have close follow-up with her primary care provider. Patient discharged home in stable condition. Case discussed with ED attending Dr. Tate. Return precautions reviewed in depth, the patient is instructed to return to the emergency department with any new, worsening, or concerning symptoms. Patient verbalized understanding. Undiagnosed new problem with uncertain prognosis? @ -None Drug Therapy requiring intensive monitoring for toxicity (Heparin, Nitro, Insulin, Cardizem)? @ -None Were any procedures done? @ -None Diagnosis/symptom? @ -Right foot cellulitis Acute, or Chronic, or Acute on Chronic? @ -Acute Uncomplicated (without systemic symptoms) or Complicated (systemic symptoms)? @ -Uncomplicated Side effects of treatment? @ -None Exacerbation, Progression, or Severe Exacerbation] @ -Not applicable Poses a threat to life or bodily function? @ -No - Lab Data Result diagrams: 01/24/24 11:15 01/24/24 11:15 Lab Results 01/24/24 01/24/24 01/24/24 Range/Units 11:15 11:15 11:15 WBC 10.8 H (3.8-10.6) k/uL RBC 4.39 (3.80-5.40) m/uL Hgb 12.5 (11.4-16.0) gm/dL Hct 40.1 (34.0-46.0) % MCV 91.3 (80.0-100.0) fL MCH 28.5 (25.0-35.0) pg MCHC 31.2 (31.0-37.0) g/dL RDW 14.9 (11.5-15.5) % Plt Count 427 (150-450) k/uL MPV 6.9 Neutrophils % 71 % Lymphocytes % 20 % Monocytes % 2 % Eosinophils % 5 % Basophils % 0 % Neutrophils # 7.7 (1.3-7.7) k/uL Lymphocytes # 2.2 (1.0-4.8) k/uL Monocytes # 0.2 (0-1.0) k/uL Eosinophils # 0.5 (0-0.7) k/uL Basophils # 0.0 (0-0.2) k/uL Hypochromasia Slight Sodium 139 (137-145) mmol/L Potassium 5.6 H (3.5-5.1) mmol/L Chloride 108 H (98-107) mmol/L Carbon Dioxide 22 (22-30) mmol/L Anion Gap 9 mmol/L BUN 31 H (7-17) mg/dL Creatinine 0.94 (0.52-1.04) mg/dL Est GFR (CKD-EPI)AfAm 74 (>60 ml/min/1.73 sqM) Est GFR (CKD-EPI)NonAf 64 (>60 ml/min/1.73 sqM) Glucose 283 H (74-99) mg/dL Plasma Lactic Acid Cristi 1.5 (0.7-2.0) mmol/L Calcium 9.3 (8.4-10.2) mg/dL Total Bilirubin 0.9 (0.2-1.3) mg/dL AST 21 (14-36) U/L ALT 30 (4-34) U/L Alkaline Phosphatase 131 H (38-126) U/L C-Reactive Protein 0.9 (<1.0) mg/dL Total Protein 7.7 (6.3-8.2) g/dL Albumin 4.4 (3.5-5.0) g/dL - Radiology Data Radiology results: report reviewed, image reviewed Disposition Clinical Impression: Cellulitis of right foot Disposition: HOME SELF-CARE Instructions (If sedation given, give patient instructions): Cellulitis (ED) Additional Instructions: Return to the emergency department with any new, worsening, or concerning symp toms. Take the antibiotic as prescribed for 10 days. Follow up with your primary care provider in 1-2 days. Prescriptions: clindamycin HCL 300 mg PO QID 10 Days #40 capsule Is patient prescribed a controlled substance at d/c from ED?: No Referrals: Channing Duggan MD [Primary Care Provider] - 1-2 days Time of Disposition: 12:21
[2024-01-24 11:19] LABS: Basophils % (A) 0 %; Eosinophils # (A) 0.5 k/uL (0-0.7); Eosinophils % (A) 5 %; HCT 40.1 % (34.0-46.0); HGB 12.5 gm/dL (11.4-16.0); Hypochromasia Slight; Lymphocytes # (A) 2.2 k/uL (1.0-4.8); Lymphocytes % (A) 20 %; MCH 28.5 pg (25.0-35.0); MCHC 31.2 g/dL (31.0-37.0); MCV 91.3 fL (80.0-100.0); Mean Platelet Volume 6.9; Monocytes # (A) 0.2 k/uL (0-1.0); Monocytes % (A) 2 %; Neutrophils # (A) 7.7 k/uL (1.3-7.7); Neutrophils % (A) 71 %; Platelet Count 427 k/uL (150-450); RBC 4.39 m/uL (3.80-5.40); RDW 14.9 % (11.5-15.5); WBC 10.8 k/uL (3.8-10.6)
[2024-01-24 11:39] LABS: ALT 30 U/L (4-34); AST 21 U/L (14-36); African American GFR (CKD) 74 (>60 ml/min/1.73 sqM); Albumin 4.4 g/dL (3.5-5.0); Alkaline Phosphatase 131 U/L (38-126); Anion Gap 9 mmol/L; Blood Urea Nitrogen 31 mg/dL (7-17); C Reactive Protein 0.9 mg/dL (<1.0); Calcium 9.3 mg/dL (8.4-10.2); Carbon Dioxide 22 mmol/L (22-30); Chloride 108 mmol/L (98-107); Glucose 283 mg/dL (74-99); Non-African American GFR(CKD) 64 (>60 ml/min/1.73 sqM); Potassium 5.6 mmol/L (3.5-5.1); Sodium 139 mmol/L (137-145); Total Bilirubin 0.9 mg/dL (0.2-1.3); Total Protein 7.7 g/dL (6.3-8.2)
--- NOTE | 2024-01-24 11:44 | XR ---
EXAMINATION TYPE: XR foot complete 3 views RT DATE OF EXAM: 01/24/2024 COMPARISON: 11/04/2023 CLINICAL INDICATION: Female, 63 years old with pain, history of Infection; FINDINGS: Osteopenia and prominent generalized soft tissue swelling. There appears to be bony fusion across some of the midfoot articulation. Hammertoes. Previous great toe amputation. No discrete osseo us erosion or lytic destruction is identified radiographically. Small plantar heel spur. IMPRESSION: 1. Some generalized soft tissue swelling, bony ankylosis across the midfoot articulation, chronic wid ening along the Lisfranc joint, and previous grade 2 amputation. 2. No radiographic evidence for osteomyelitis at this time. Follow-up can be performed if there is pe rsistent clinical concern. [facility], , 01/24/2024 11:41 AM
[2024-01-24] MEDS: LORazepam 1 MG TAB PO STA (12:05)
[2024-01-24] MEDS: HYDROcodone/APAP 7.5-325MG 1 EACH TAB PO ONE (12:54)
[2024-01-24] MEDS: ACET/COD 300 MG/30 MG STARTER PACK 6 TAB BTL PO STA (12:54)
[2024-01-24 15:41] LABS: Erythrocyte Sedimentation Rate 53 mm/Hr (0-30)
== END 2024-01-24 13:11 | disposition home or self-care (01) ==
LOC: EC 10:36
DX: L03.115 Cellulitis of right lower limb (principal); Z87.891 Personal history of nicotine dependence; Z88.8 Allergy status to other drugs, medicaments and biological substances
CPT/HCPCS: 36415; 80053; 83605; 85025; 85652; 86140; 99283

== ENCOUNTER 2024-05-27 08:23 | Day surgery (SDC) | payer BC, MEDICARE ==
[2024-05-26 09:11] VITALS: BMI 28.3
[2024-05-27] MEDS: IV FLUID CONTINUATION 1,000 ML IV ONE (08:57)
[2024-05-27] MEDS: LACTATED RINGERS 1,000 ML IV SCH (09:13)
[2024-05-27 09:16] LABS: Glucose,Whole Blood 116 mg/dL (70-110)
[2024-05-27] MEDS: ONDANSETRON 4 MG/2 ML VIAL IVP STA (09:16)
[2024-05-27 09:26] VITALS: RESP 16; TEMP 97
[2024-05-27] MEDS ORDERED: PROPOFOL 10 MG/ML 20 ML VIAL IV ONE (09:31)
[2024-05-27] MEDS ORDERED: LIDOCAINE 1% INJ 10MG/ML (20 ML MDV) ONE (09:31)
--- NOTE | 2024-05-27 09:42 | P.PCN ---
Date of Procedure: 05/27/24 Procedure(s) Performed: BRIEF HISTORY: Patient is a 59-year-old, pleasant, white female scheduled upper endoscopy as a part of evaluation of chronic epigastric pain for the last 7 months duration.. PROCEDURE PERFORMED: Esophagogastroduodenoscopy. PREOPERATIVE DIAGNOSIS: Chronic epigastric pain. IV sedation per anesthesia. PROCEDURE: After informed consent was obtained, the patient was brought into the endoscopy unit. IV sedation was administered by Anesthesia under continuous monitoring. Initially the Olympus GIF-140 video endoscope was inserted into the mouth. Esophagus intubated without any difficulty. It was gradually advanced into the stomach and duodenum and carefully examined. The bulb and the second part of the duodenum appeared normal. The scope at this time was withdrawn to the stomach, adequately insufflated with air, and upon careful examination, mucosa of the antrum had patchy areas of erythema consistent with gastritis and biopsies were done from this area. Mucosa of the, body, cardia and the fundus appeared normal. Multiple small gastric polyps noted in the body of the stomach which were biopsied. The scope was then withdrawn into the esophagus. Small sliding-type hiatal hernia noted. The GE junction was located at 39 cm from the incisors. The esophagus appeared normal. These were done from the distal esophagus. There were no erosions or ulcerations seen and the patient tolerated the procedure well. IMPRESSION: 1. Mild antral gastritis. 2. Multiple gastric polyps 3. Small hiatal hernia but no evidence of esophagitis or Singer's esophagus. RECOMMENDATIONS: The findings of this examination were discussed with the patient as well as her family. Follow with the biopsy results. She was advised to continue with Nexium and Pepcid daily and follow antireflux measures.
[2024-05-27 09:52] LABS: Glucose,Whole Blood 116 mg/dL (70-110)
[2024-05-27 09:59] VITALS: BP 117/70; PULSE 90
== END 2024-05-27 10:24 | disposition home or self-care (01) ==
LOC: ORWHC2ENDO 08:23
PROVIDERS: ATTEND Internal Medicine Gastroenterology
DX: K29.50 Unspecified chronic gastritis without bleeding (principal); K31.7 Polyp of stomach and duodenum; K44.9 Diaphragmatic hernia without obstruction or gangrene
CPT/HCPCS: 88305; 43239; J2405; J2003; J2704

== ENCOUNTER 2024-09-03 15:06 | Emergency (ER) | payer MEDICARE ==
--- NOTE | 2024-09-03 16:29 | ED ---
General Adult HPI - General Chief complaint: Wound/Laceration Stated complaint: L foot sore Time Seen by Provider: 09/03/24 15:21 Source: patient, RN notes reviewed Mode of arrival: ambulatory Limitations: no limitations - History of Present Illness Initial comments: 64-year-old female with history of type 2 diabetes mellitus and Charcot foot presenting to the ER with complaints of right foot pain that has been worsening over the past few weeks. Patient has a history of an amputation [place] [address] Brunson. She states that over the past few weeks she has been having increasing pain to the mid lateral dorsum of the foot with surrounding swelling redness and heat. She endorses intermittent fevers and chills over the past few weeks. She denies discharge from the site. She denies recent antibiotic use. - Related Data Home Medications Medication Instructions Recorded Confirmed Escitalopram [Lexapro] 20 mg PO DAILY 07/20/14 09/03/24 Esomeprazole Magnesium [NexIUM] 20 mg PO DAILY 07/20/14 09/03/24 QUEtiapine FUMARATE 150 mg PO 07/20/14 09/03/24 Atorvastatin [Lipitor] 40 mg PO DAILY 11/04/23 09/03/24 Cetirizine HCl [Zyrtec] 10 mg PO DAILY 11/04/23 09/03/24 glipiZIDE [Glucotrol] 20 mg PO DAILY 11/04/23 09/03/24 lisinopriL [Zestril] 2.5 mg PO DAILY 11/04/23 09/03/24 metFORMIN HCL [Glucophage] 1,000 mg PO BID 11/04/23 09/03/24 Famotidine 40 mg PO HS 09/03/24 09/03/24 Fluticasone Nasal Harmony [Flonase 2 spray EA NOSTRIL BID 09/03/24 09/03/24 Nasal Harmony] Pioglitazone [Actos] 15 mg PO DAILY 09/03/24 09/03/24 Previous Rx's Medication Instructions Recorded clonazePAM [KlonoPIN] 0.5 mg PO BID #6 tab 11/14/23 Cephalexin [Keflex] 500 mg PO Q6HR #40 cap 09/03/24 Sulfamethox-Tmp 800-160Mg [Bactrim 1 each PO Q12HR #20 tab 09/03/24 Ds] Allergies Allergy/AdvReac Type Severity Reaction Status Date / Time prochlorperazine edisylate Allergy Anaphylaxis Verified 09/03/24 15:13 [From Compazine] prochlorperazine maleate Allergy Anaphylaxis Verified 09/03/24 15:13 [From Compazine] Review of Systems ROS Statement: Those systems with pertinent positive or pertinent negative responses have been documented in the HPI. ROS Other: All systems not noted in ROS Statement are negative. Past Medical History Past Medical History: Diabetes Mellitus, GERD/Reflux, Hyperlipidemia, Hyperten daniel Additional Past Medical History / Comment(s): Anemia, bleeding ulcer History of Any Multi-Drug Resistant Organisms: None Reported Past Surgical History: Appendectomy, Section, Cholecystectomy, Hysterectomy Additional Past Surgical History / Comment(s): right foot- greater toe amputatio n- 01/2023, infection R foot with debridement. Past Anesthesia/Blood Transfusion Reactions: Postoperative Nausea & Vomiting (PONV) Past Psychological History: Anxiety, Depression Smoking Status: Former smoker Past Alcohol Use History: None Reported Past Drug Use History: None Reported - Past Family History Mother Family Medical History: No Reported History General Exam Limitations: no limitations Neck exam: Present: normal inspection. Absent: tenderness, meningismus, lymphadenopathy Respiratory exam: Present: normal lung sounds bilaterally. Absent: respiratory distress, wheezes, rales, rhonchi, stridor Cardiovascular Exam: Present: regular rate, normal rhythm, normal heart sounds. Absent: systolic murmur, diastolic murmur, rubs, gallop, clicks GI/Abdominal exam: Present: soft, normal bowel sounds. Absent: distended, tenderness, guarding, rebound, rigid Right Foot/Toe exam: Present: tenderness, deformity, erythema, amputation. Absent: laceration, crepitus Neurovascular tendon exam: Present: no vascular compromise Course Vital Signs 09/03/24 09/03/24 09/03/24 15:09 16:46 18:00 Temperature 98.5 F Pulse Rate 82 71 71 Respiratory 20 18 18 Rate Blood Pressure 147/62 143/71 146/69 O2 Sat by Pulse 96 97 96 Oximetry Medical Decision Making - Medical Decision Making Was pt. sent in by a medical professional or institution (, PA, CLOTH SHEARER, urgent care, hospital, or penitentiary...) When possible be specific @ -No Did you speak to anyone other than the patient for history (EMS, parent, family, police, friend...)? What history was obtained from this source @ -No Did you review nursing and triage notes (agree or disagree)? Why? @ -I reviewed and agree with nursing and triage notes Were old charts reviewed (outside hosp., previous admission, EMS record, old EKG, old radiological studies, urgent care reports/EKG's, penitentiary records)? Report findings @ -No old charts were reviewed Differential Diagnosis (chest pain, altered mental status, abdominal pain women, abdominal pain men, vaginal bleeding, weakness, fever, dyspnea, syncope, headache, dizziness, GI bleed, back pain, seizure, CVA, palpatations, mental health, musculoskeletal)? @ -Osteomyelitis, cellulitis, abscess, this list is not all inclusive EKG interpreted by me (3pts min.). @ -None X-rays interpreted by me (1pt min.). @ -X-ray of the right foot reveals no acute fracture or dislocation with no evidence of osteomyelitis with chronic changes CT interpreted by me (1pt min.). @ -None done U/S interpreted by me (1pt. min.). @ -None done What testing was considered but not performed or refused? (CT, X-rays, U/S, labs)? Why? @ -None What meds were considered but not given or refused? Why? @ -None Did you discuss the management of the patient with other professionals (professionals i.e. , PA, CLOTH SHEARER, lab, RT, psych nurse, social service liaison, project estimator, teacher, radiation officer, protective services case worker)? Give summary @ -No Was smoking cessation discussed for >3mins.? @ -No Was critical care preformed (if so, how long)? @ -No Were there social determinants of health that impacted care today? How? ( Homelessness, low income, unemployed, alcoholism, drug addiction, transportation, low edu. Level, literacy, decrease access to med. care, detention, rehab)? @ -No Was there de-escalation of care discussed even if they declined (Discuss DNR or withdrawal of care, Hospice)? DNR status @ -No What co-morbidities impacted this encounter? (DM, HTN, Smoking, COPD, CAD, Cancer, CVA, ARF, Chemo, Hep., AIDS, mental health diagnosis, sleep apnea, morbid obesity)? @ -Diabetes mellitus Was patient admitted / discharged? Hospital course, mention meds given and route, prescriptions, significant lab abnormalities, going to OR and other pertinent info. @ -Discharge. 64 female presenting to the ER with complaints of right foot pain. There is a noted small 0.5 cm type lesion of the dorsum medial foot with mild surrounding swelling with no purulence or erythema. Area is mildly warm to the touch. Her initial vitals are stable. Patient provided with dose of Dilaudid for pain relief. Patient is known to have mild leukocytosis of 12.23 otherwise laboratory testing is unremarkable. X-ray imaging does not reveal evidence of osteomyelitis or acute fracture or dislocation. Patient will be treated with Rocephin and outpatient prescription for Keflex and Bactrim and recommended extremely close follow-up with wound care and primary care provider outpatient in the next 1 to 3 days to ensure wound is healing appropriately. Case discussed with my attending Dr. Del Cid. Strict return parameters have been discussed with the patient she is verbalized understanding. Undiagnosed new problem with uncertain prognosis? @ -No Drug Therapy requiring intensive monitoring for toxicity (Heparin, Nitro, Insulin, Cardizem)? @ -No Were any procedures done? @ -No Diagnosis/symptom? @ -Cellulitis Acute, or Chronic, or Acute on Chronic? @ -Acute Uncomplicated (without systemic symptoms) or Complicated (systemic symptoms)? @ -Uncomplicated Side effects of treatment? @ -No Exacerbation, Progression, or Severe Exacerbation? @ -No Poses a threat to life or bodily function? How? (Chest pain, [place], SD, pneumonia, PE, COPD, DKA, ARF, appy, cholecystitis, CVA, Diverticulitis, Homicidal, Suicidal, threat to staff... and all critical care pts) @ -No - Lab Data Result diagrams: 09/03/24 16:54 09/03/24 16:54 Lab Results 09/03/24 09/03/24 09/03/24 Range/Units 16:54 16:54 16:54 WBC 12.23 H (4.50-10.00) 10*3/uL RBC 3.46 L (4.10-5.20) 10*6/uL Hgb 10.7 L (12.0-15.0) g/dL Hct 33.3 L (37.2-46.3) % MCV 96.2 (80.0-97.0) fL MCH 30.9 (27.0-32.0) pg MCHC 32.1 (32.0-37.0) g/dL Plt Count 424 (140-440) 10*3/uL MPV 9.8 (9.5-12.2) fL Immature Gran % (Auto) 0.5 % Neutrophils % 62.8 % Lymphocytes % 27.1 % Monocytes % 5.2 % Eosinophils % 4.0 % Basophils % 0.4 % Immature Gran # 0.06 H (0.00-0.04) 10*3/uL Neutrophils # 7.69 (1.80-7.70) 10*3/uL Lymphocytes # 3.31 (0.90-5.00) 10*3/uL Monocytes # 0.63 (0.20-1.00) 10*3/uL Eosinophils # 0.49 H (0.04-0.35) 10*3/uL Basophils # 0.05 (0.00-0.10) 10*3/uL Sodium 139 (137-145) mmol/L Potassium 5.3 H (3.5-5.1) mmol/L Chloride 105 (98-107) mmol/L Carbon Dioxide 22 (22-30) mmol/L Anion Gap 12 mmol/L BUN 21 H (7-17) mg/dL Creatinine 0.79 (0.52-1.04) mg/dL Est GFR (CKD-EPI)AfAm >90 (>60 ml/min/1.73 sqM) Est GFR (CKD-EPI)NonAf 80 (>60 ml/min/1.73 sqM) Glucose 80 (74-99) mg/dL Plasma Lactic Acid Cristi 1.5 (0.7-2.0) mmol/L Calcium 9.5 (8.4-10.2) mg/dL Total Bilirubin 0.8 (0.2-1.3) mg/dL AST 22 (14-36) U/L ALT 25 (4-34) U/L Alkaline Phosphatase 116 (38-126) U/L C-Reactive Protein 0.9 (<1.0) mg/dL Total Protein 6.8 (6.3-8.2) g/dL Albumin 4.0 (3.5-5.0) g/dL Disposition Clinical Impression: Cellulitis of right foot Disposition: HOME SELF-CARE Condition: Good Instructions (If sedation given, give patient instructions): Cellulitis (ED) Additional Instructions: Please return to the Emergency Department if symptoms worsen or any other concerns. Prescriptions: Sulfamethox-Tmp 800-160Mg [Bactrim Ds] 1 each PO Q12HR #20 tab Cephalexin [Keflex] 500 mg PO Q6HR #40 cap Is patient prescribed a controlled substance at d/c from ED?: No Referrals: Channing Duggan MD [Primary Care Provider] - 1-2 days Time of Disposition: 18:39
[2024-09-03 16:51] VITALS: RESP 18
[2024-09-03] MEDS: HYDROmorphone 0.5 MG/0.5 ML SYRINGE IVP STA (16:57)
[2024-09-03] MEDS: SODIUM CHLORIDE 0.9% 500 ML 500 ML IV ONE (16:57)
--- NOTE | 2024-09-03 17:12 | XR ---
EXAMINATION TYPE: XR foot complete RT DATE OF EXAM: 09/03/2024 COMPARISON: Right foot radiograph 01/24/2024, 11/04/2023, MRI right foot 11/07/2023, CT right lower extr emity 11/04/2023 HISTORY: Pain in the medial bilateral foot/ulcer, history amputation TECHNIQUE: Frontal, lateral and oblique images of the right ankle are obtained. FINDINGS: Diffuse bone demineralization. Similar generalized soft tissue swelling. There is again lucien [place] fusion across some of the mid foot articulation. Hammertoes. Previous great toe amputation at the MTP joint. No osseous erosions. No acute fracture or dislocation. Small plantar heel spur. Chronic wi dening along the Lisfranc joint. IMPRESSION: 1. No acute fracture or dislocation. 2. No radiographic evidence for osteomyelitis at this time. 3. Chronic changes as described above. [facility], , 09/03/2024 5:10 PM
[2024-09-03 17:23] LABS: Basophils # (A) 0.05 10*3/uL (0.00-0.10); Basophils % (A) 0.4 %; Eosinophils # (A) 0.49 10*3/uL (0.04-0.35); Eosinophils % (A) 4.0 %; HCT 33.3 % (37.2-46.3); HGB 10.7 g/dL (12.0-15.0); Lymphocytes # (A) 3.31 10*3/uL (0.90-5.00); Lymphocytes % (A) 27.1 %; MCH 30.9 pg (27.0-32.0); MCHC 32.1 g/dL (32.0-37.0); MCV 96.2 fL (80.0-97.0); Monocytes # (A) 0.63 10*3/uL (0.20-1.00); Monocytes % (A) 5.2 %; Neutrophils # (A) 7.69 10*3/uL (1.80-7.70); Neutrophils % (A) 62.8 %; Platelet Count 424 10*3/uL (140-440); RBC 3.46 10*6/uL (4.10-5.20); RDW 12.8 % (11.5-14.5); WBC 12.23 10*3/uL (4.50-10.00)
[2024-09-03 17:31] LABS: ALT 25 U/L (4-34); AST 22 U/L (14-36); African American GFR (CKD) >90 (>60 ml/min/1.73 sqM); Albumin 4.0 g/dL (3.5-5.0); Alkaline Phosphatase 116 U/L (38-126); Anion Gap 12 mmol/L; Blood Urea Nitrogen 21 mg/dL (7-17); Calcium 9.5 mg/dL (8.4-10.2); Carbon Dioxide 22 mmol/L (22-30); Chloride 105 mmol/L (98-107); Glucose 80 mg/dL (74-99); Non-African American GFR(CKD) 80 (>60 ml/min/1.73 sqM); Potassium 5.3 mmol/L (3.5-5.1); Sodium 139 mmol/L (137-145); Total Protein 6.8 g/dL (6.3-8.2)
[2024-09-03] MEDS: cefTRIAXone IN SWFI 1,000 MG/10 ML SYRINGE IVP STA (18:52)
[2024-09-03 18:58] VITALS: BP 140/83; PULSE 68; TEMP 98.6
== END 2024-09-03 18:57 | disposition home or self-care (01) ==
LOC: EC 15:06
DX: L03.115 Cellulitis of right lower limb (principal); E11.9 Type 2 diabetes mellitus without complications; Z79.84 Long term (current) use of oral hypoglycemic drugs; Z87.891 Personal history of nicotine dependence; Z88.8 Allergy status to other drugs, medicaments and biological substances
CPT/HCPCS: 36415; 80053; 83605; 85025; 86140; 73630; 99283; 96374; 96375; 96361; J0696; J1171

== ENCOUNTER → 2024-09-22 | Outpatient (CLI) | payer MEDICARE ==
[2024-09-22 19:11] LABS: Basophils # (A) 0.09 X 10*3/uL (0.00-0.10); Basophils % (A) 0.7 %; Eosinophils # (A) 0.26 X 10*3/uL (0.04-0.35); Eosinophils % (A) 2.1 %; HCT 33.6 % (37.2-46.3); HGB 10.3 g/dL (12.0-15.0); Immature Grans, Automated 1.70 %; Lymphocytes # (A) 3.03 X 10*3/uL (0.90-5.00); Lymphocytes % (A) 24.1 %; MCH 29.4 pg (27.0-32.0); MCHC 30.7 g/dL (32.0-37.0); MCV 96.0 FL (80.0-97.0); Monocytes # (A) 0.62 X 10*3/uL (0.20-1.00); Monocytes % (A) 4.9 %; NRBC Per 100 WBC 0 X 10*3/uL (0.00-0.01); Neutrophils # (A) 8.36 X 10*3/uL (1.80-7.70); Neutrophils % (A) 66.5 %; Platelet Count 454 X 10*3/uL (140-440); RBC 3.50 X 10*6/uL (4.10-5.20); RDW 13.1 % (11.5-14.5); WBC 12.58 X 10*3/uL (4.50-10.00)
[2024-09-22 19:20] LABS: Anion Gap 9.00 mmol/L (4.00-12.00); BUN/Creat Ratio 17.40 Ratio (12.00-20.00); Blood Urea Nitrogen 17.4 mg/dL (9.0-27.0); Calcium 9.3 mg/dL (8.7-10.3); Carbon Dioxide 23.0 mmol/L (21.6-31.8); Chloride 109 mmol/L (96-109); Glucose 81 mg/dL (70-110); Potassium 5.5 mmol/L (3.5-5.5); Sodium 141 mmol/L (135-145)
== END | disposition home or self-care (01) ==
LOC: LABWHC1 14:26
PROVIDERS: ATTEND Podiatrist Foot & Ankle Surgery
DX: E11.610 Type 2 diabetes mellitus with diabetic neuropathic arthropathy (principal); Z86.31 Personal history of diabetic foot ulcer
CPT/HCPCS: 36415; 80048; 83036; 85025